=== PATIENT | female | born 1935 | race African-American/Black ===

== ENCOUNTER 2016-04-10 14:02 | Observation (INO) | payer OTHER ==
[~2016-04-10] VITALS: Ht 165.1 cm; Wt 76.7 kg
--- NOTE | 2016-04-10 14:09 | PHYS DOC ---
Adult General Chief Complaint Chief Complaint: CHEST PAIN HPI HPI Patient is a 80 year old frequent [place]ian female who presents with pain. She states last night she developed left-sided chest pain underneath her left breast is very intermittent. Nothing made it better or worse it just came and went. She denies any shortness of breath or nausea with this. She states it did keep her awake during the night. It did resolve this morning but she had an episode of what she felt like her heart racing and pounding in her head which lasted approximate 5 minutes. She took another one of blood pressure medicines and then came to the ER. Currently she denies any chest pain shortness of breath nausea vomiting or this pounding sensation in her head. She states she's had a stress test but is too many years ago that she can't remember the results of it. Review of Systems Review of Systems Constitutional: Denies fever or chills [] Eyes: Denies change in visual acuity, redness, or eye pain [] HENT: Denies nasal congestion or sore throat [] Respiratory: Denies cough or shortness of breath [] Cardiovascular: No additional information not addressed in HPI [] GI: Denies abdominal pain, nausea, vomiting, bloody stools or diarrhea [] : Denies dysuria or hematuria [] Musculoskeletal: Denies back pain or joint pain [] Integument: Denies rash or skin lesions [] Neurologic: Denies headache, focal weakness or sensory changes [] Endocrine: Denies polyuria or polydipsia [] Current Medications Current Medications Current Medications Medications (Trade) Dose Ordered Sig/[facility] Start Time Stop Time Status Last Admin Dose Admin Aspirin (Children'S Aspirin) 324 mg 1X ONCE 04/10/16 14:15 04/10/16 14:31 DC 04/10/16 14:34 324 MG Nitroglycerin (Nitrostat) 0.4 mg PRN Q5MIN PRN 04/10/16 14:15 04/11/16 14:14 04/10/16 14:35 0.4 MG Allergies Allergies Allergies Coded Allergies Type Severity Reaction Last Updated Verified No Known Drug Allergies 04/10/16 No Physical Exam Physical Exam Constitutional: Well developed, well nourished, no acute distress, non-toxic appearance. [] HENT: Normocephalic, atraumatic, bilateral external ears normal, oropharynx moist, no oral exudates, nose normal. [] Eyes: PERRLA, EOMI, conjunctiva normal, no discharge. [] Neck: Normal range of motion, no tenderness, supple, no stridor. [] Cardiovascular:Heart rate regular rhythm, no murmur [] Lungs & Thorax: Bilateral breath sounds clear to auscultation [] Abdomen: Bowel sounds normal, soft, no tenderness, no masses, no pulsatile masses. [] Skin: Warm, dry, no erythema, no rash. [] Back: No tenderness, no CVA tenderness. [] Extremities: No tenderness, no cyanosis, no clubbing, ROM intact, no edema. [] Neurologic: Alert and oriented X 3, normal motor function, normal sensory function, no focal deficits noted. [] Psychologic: Affect normal, judgement normal, mood normal. [] Current Patient Data Vital Signs Vital Signs Date Time Temp Pulse Resp B/P Pulse Ox O2 Delivery O2 Flow Rate FiO2 04/10/16 14:35 100 211/95 04/10/16 14:11 98.5 16 97 Room Air 98.5 Lab Values Laboratory Tests Test 04/10/16 14:20 White Blood Count 7.3x10^3/uL (4.0-11.0) Red Blood Count 4.71x10^6/uL (3.50-5.40) Hemoglobin 12.6g/dL (12.0-15.5) Hematocrit 39.0% (36.0-47.0) Mean Corpuscular Volume 83fL (79-100) Mean Corpuscular Hemoglobin 27pg (25-35) Mean Corpuscular Hemoglobin Concent 32g/dL (31-37) Red Cell Distribution Width 14.1% (11.5-14.5) Platelet Count 258x10^3/uL (140-400) Neutrophils (%) (Auto) 26% (31-73) L Lymphocytes (%) (Auto) 65% (24-48) H Monocytes (%) (Auto) 8% (0-9) Eosinophils (%) (Auto) 2% (0-3) Basophils (%) (Auto) 1% (0-3) Neutrophils # (Auto) 1.9x10^3uL (1.8-7.7) Lymphocytes # (Auto) 4.7x10^3/uL (1.0-4.8) Monocytes # (Auto) 0.6x10^3/uL (0.0-1.1) Eosinophils # (Auto) 0.1x10^3/uL (0.0-0.7) Basophils # (Auto) 0.1x10^3/uL (0.0-0.2) Platelet Estimate Pending Prothrombin Time 12.6SEC (11.7-14.0) Prothrombin Time INR 1.0 (0.8-1.1) Sodium Level 135mmol/L (136-145) L Potassium Level 3.7mmol/L (3.5-5.1) Chloride Level 96mmol/L (98-107) L Carbon Dioxide Level 28mmol/L (21-32) Anion Gap 11 (6-14) Blood Urea Nitrogen 16mg/dL (7-20) Creatinine 1.4mg/dL (0.6-1.0) H Estimated GFR (Cockcroft-Gault) 36.3 Glucose Level 167mg/dL (70-99) H Calcium Level 9.9mg/dL (8.5-10.1) Magnesium Level 2.1mg/dL (1.8-2.4) Total Bilirubin 0.4mg/dL (0.2-1.0) Direct Bilirubin 0.1mg/dL (0.0-0.2) Aspartate Amino Transferase (AST) 20U/L (15-37) Alanine Aminotransferase (ALT) 33U/L (14-59) Alkaline Phosphatase 93U/L (46-116) Creatine Kinase 211U/L (26-192) H Creatine Kinase MB (Mass) 1.3ng/mL (0.0-3.6) Creatine Kinase MB Relative Index 0.6% (0-4) Troponin I Quantitative < 0.017ng/mL (0.000-0.055) JT-Xza-N-Type Natriuretic Peptide 23pg/mL (0-449) Total Protein 8.6g/dL (6.4-8.2) H Albumin 4.1g/dL (3.4-5.0) Lipase 439U/L (73-393) H Thyroid Stimulating Hormone (TSH) 4.325uIU/mL (0.358-3.74) H Laboratory Tests 04/10/16 14:20 Laboratory Tests 04/10/16 14:20 EKG EKG EKG shows a supraventricular rhythm with a rate of 115 bpm, left axis deviation , left anterior fascicular block, right bundle branch block, right axis deviation, no ST elevations or T-wave inversions appreciated, as interpreted by me. Radiology/Procedures Radiology/Procedures [facility] [address] [place] [address] IMAGING REPORT Signed PATIENT: MARSHALL RODRIGUEZ ACCOUNT: [id number] : 1935 LOCATION: ER AGE: 80 SEX: F EXAM STATUS: PRE ER ORD. PHYSICIAN: FREEDOM TOUSSAINT MD REASON: chest pain PROCEDURE: PORTABLE CHEST 1V Portable chest, 04/10/2016: History: Elevated blood pressure Comparison is made to a study from 02/18/2010. The heart size and pulmonary vascularity are normal. No pulmonary infiltrates are seen. There is no evidence of pleural fluid. Mild spurring is present in the spine. IMPRESSION: No acute cardiopulmonary abnormality is detected. DICTATED and SIGNED BY: EB MENDIETA MD DATE: 04/10/16 1450 CC: FREEDOM TOUSSAINT MD ~ Impressions: Chest pain Course & Med Decision Making Course & Med Decision Making Pertinent Labs and Imaging studies reviewed. (See chart for details) EKG does show a supraventricular radiated 115 bpm. She since then after she bent the bed, down to a rate of 90. Her labs show any acute abdomen allergies. Will admit for official chest pain rule out. Hospitalist agreeable plan patient' s in stable condition this time. Dragon Disclaimer Dragon Disclaimer This electronic medical record was generated, in whole or in part, using a voice recognition dictation system. Departure Departure Impression: Primary Impression: Chest pain Disposition: ADMITTED INPATIENT Admitting Physician: Asuncion Corado Condition: STABLE FREEDOM TOUSSAINT MD Apr 10, 2016 14:09
[2016-04-10] MEDS ORDERED: ASPIRIN 81 MG TAB.CHEW PO ONE (14:15)
[2016-04-10] MEDS ORDERED: NITROGLYCERIN SUBLINGUAL 0.4 MG BOTTLE OF 25. SL PRN (14:15)
[2016-04-10 14:37] LABS: BASO # 0.1 x10^3/uL (0.0-0.2); BASO % 1 % (0-3); EOS % 2 % (0-3); HEMOGLOBIN 12.6 g/dL (12.0-15.5); LYMPH # 4.7 x10^3/uL (1.0-4.8); LYMPH % 65 % (24-48); MEAN CORPUSCULAR HEMOGLOBIN 27 pg (25-35); MEAN CORPUSCULAR HGB CONC 32 g/dL (31-37); MEAN CORPUSCULAR VOLUME 83 fL (79-100); MONO % 8 % (0-9); NEUT % 26 % (31-73); PLATELET COUNT 258 x10^3/uL (140-400); RED BLOOD COUNT 4.71 x10^6/uL (3.50-5.40); RED CELL DISTRIBUTION WIDTH 14.1 % (11.5-14.5); WHITE BLOOD COUNT 7.3 x10^3/uL (4.0-11.0)
[2016-04-10 14:41] LABS: CALCIUM 9.9 mg/dL (8.5-10.1); CREATININE 1.4 mg/dL (0.6-1.0); GFR 36.3; POTASSIUM 3.7 mmol/L (3.5-5.1)
[2016-04-10 14:48] LABS: ALBUMIN 4.1 g/dL (3.4-5.0); DIRECT BILIRUBIN 0.1 mg/dL (0.0-0.2); MAGNESIUM 2.1 mg/dL (1.8-2.4); TOTAL BILIRUBIN 0.4 mg/dL (0.2-1.0); TOTAL PROTEIN 8.6 g/dL (6.4-8.2)
[2016-04-10 14:50] LABS: PROTHROMBIN TIME PATIENT 12.6 SEC (11.7-14.0)
[2016-04-10] MEDS ORDERED: TRIA1TAB3 PO (14:52)
[2016-04-10] MEDS ORDERED: AMLO5TAB2 PO (14:52)
[2016-04-10] MEDS ORDERED: METO-269 PO (14:52)
--- NOTE | 2016-04-10 14:54 | RAD ---
Portable chest, 04/10/2016: History: Elevated blood pressure Comparison is made to a study from 02/18/2010. The heart size and pulmonary vascularity are normal. No pulmonary infiltrates are seen. There is no evidence of pleural fluid. Mild spurring is present in the spine. IMPRESSION: No acute cardiopulmonary abnormality is detected.
[2016-04-10 15:02] LABS: CKMB INDEX 0.6 % (0-4); CKMB MASS 1.3 ng/mL (0.0-3.6)
[2016-04-10 15:40] LABS: % BASOS 1 % (0-3); PLT ESTIMATE ADEQUATE (ADEQUATE)
[2016-04-10] MEDS ORDERED: ACETAMINOPHEN 325 MG TABLET. PO PRN (16:15)
[2016-04-10] MEDS ORDERED: ONDANSETRON PF 4 MG/2 ML VIAL. IV PRN (16:15)
[2016-04-10] MEDS ORDERED: TRAMADOL 50 MG TABLET. PO PRN (16:15)
[2016-04-10] MEDS ORDERED: LABETALOL 20 MG/4 ML DISP.SYRIN. IVP PRN ×2 (16:15→16:30)
--- NOTE | 2016-04-10 16:19 | PDOC2 ---
CARDIAC CONSULT DATE OF CONSULT Date of Consult DATE: 04/10/16 TIME: 16:01 REASON FOR CONSULT Reason for Consult: Chest pain REFERRING PHYSICIAN Referring Physician: Alyse SOURCE Source: Chart review, Patient HISTORY OF PRESENT ILLNESS HISTORY OF PRESENT ILLNESS This is a pleasant 80 yo female admitted for complains of chest pain and high blood pressure. Reports of left chest achiness starting last night which waxing and waning but tolerable continued on throughout the night intensifying at time lasting about 2 minutes each episode. This continued today and after 1 PM she felt that her head was pulsating and reports of heaviness in her left arm. She then took her BP which normally dont do and it was 228/98. Denies any SOA and in her activities prior to this episode she denies any GARCIA. Her baseline is mainly sedentary, does not exercise. She does watches her Na. Denies any nausea, vomiting, dizziness, or palpitations. At home she takes a statin, ASA, norvasc, maxide, toprol. Denies any DM2, tobaccoism. No prior VTE but she does have chronic leg edema with RLE usually more edematous that left. Denies any recent long distance travel. Denies any bleeding or clotting disorders. Denies any CAD, arrhythmias, CVA. No recent falls or injury and no recent infections. Her last stress test was >10 yrs ago and she does not follow any research & insights executive. She does follow with her PCP and compliant with her medications except that she stopped taking her statin over a week ago since she ran out. 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) Hepatobiliary: No pertinent hx Psych: No pertinent hx Musculoskeletal: Osteoarthritis Rheumatologic: No pertinent hx Infectious disease: No pertinent hx ENT: No pertinent hx Renal/: No pertinent hx Endocrine: No pertinent hx Dermatology: No pertinent hx PAST SURGICAL HISTORY Past Surgical History: Other (neck lymphoma removal) FAMILY HISTORY Family History noncontributory to CV SOCIAL HISTORY Smoke: No ALCOHOL: occassional Drugs: None Lives: with Family CURRENT MEDICATIONS CURRENT MEDICATIONS Current Medications Medications (Trade) Dose Ordered Sig/Comfort Route PRN Reason Start Time Stop Time Status Last Admin Dose Admin Aspirin (Children'S Aspirin) 324 mg 1X ONCE PO 04/10/16 14:15 04/10/16 14:31 DC 04/10/16 14:34 Nitroglycerin (Nitrostat) 0.4 mg PRN Q5MIN PRN SL CP RATING > 1/10 04/10/16 14:15 04/11/16 14:14 04/10/16 14:35 ALLERGIES ALLERGIES: Coded Allergies: No Known Drug Allergies (Unverified , 04/10/16) ROS Review of System 14 point ROS evaluated with pertinent positives noted per HPI PHYSICAL EXAM General: Alert, Oriented X3, Cooperative, No acute distress HEENT: Atraumatic, Mucous membr. moist/pink Lungs: Clear to auscultation, Normal air movement Heart: Regular rate, Normal S1, Normal S2, Other (2/6 systolic murmur to LLS border; S4) Extremities: No cyanosis, Other (1+ to LLE and 2+ to RLE pitting edema) Skin: No breakdown, No significant lesion Neuro: Normal speech, Sensation intact Psych/Mental Status: Mental status NL, Mood NL MUSCULOSKELETAL: Osteoarthritic changes both hands VITALS VITALS Vital Signs Date Time Temp Pulse Resp B/P Pulse Ox O2 Delivery O2 Flow Rate FiO2 04/10/16 14:35 100 211/95 04/10/16 14:11 98.5 16 97 Room Air 98.5 LABS Lab: Laboratory Tests Test 04/10/16 14:20 White Blood Count 7.3x10^3/uL (4.0-11.0) Red Blood Count 4.71x10^6/uL (3.50-5.40) Hemoglobin 12.6g/dL (12.0-15.5) Hematocrit 39.0% (36.0-47.0) Mean Corpuscular Volume 83fL (79-100) Mean Corpuscular Hemoglobin 27pg (25-35) Mean Corpuscular Hemoglobin Concent 32g/dL (31-37) Red Cell Distribution Width 14.1% (11.5-14.5) Platelet Count 258x10^3/uL (140-400) Neutrophils (%) (Auto) 26% (31-73) Lymphocytes (%) (Auto) 65% (24-48) Monocytes (%) (Auto) 8% (0-9) Eosinophils (%) (Auto) 2% (0-3) Basophils (%) (Auto) 1% (0-3) Neutrophils # (Auto) 1.9x10^3uL (1.8-7.7) Lymphocytes # (Auto) 4.7x10^3/uL (1.0-4.8) Monocytes # (Auto) 0.6x10^3/uL (0.0-1.1) Eosinophils # (Auto) 0.1x10^3/uL (0.0-0.7) Basophils # (Auto) 0.1x10^3/uL (0.0-0.2) Segmented Neutrophils % 21% (35-66) Lymphocytes % 59% (24-48) Atypical Lymphocytes % (Manual) 13% (0-0) Monocytes % 6% (0-10) Basophils % 1% (0-3) Platelet Estimate Adequate (ADEQUATE) Prothrombin Time 12.6SEC (11.7-14.0) Prothromb Time International Ratio 1.0 (0.8-1.1) Sodium Level 135mmol/L (136-145) Potassium Level 3.7mmol/L (3.5-5.1) Chloride Level 96mmol/L (98-107) Carbon Dioxide Level 28mmol/L (21-32) Anion Gap 11 (6-14) Blood Urea Nitrogen 16mg/dL (7-20) Creatinine 1.4mg/dL (0.6-1.0) Estimated GFR (Cockcroft-Gault) 36.3 Glucose Level 167mg/dL (70-99) Calcium Level 9.9mg/dL (8.5-10.1) Magnesium Level 2.1mg/dL (1.8-2.4) Total Bilirubin 0.4mg/dL (0.2-1.0) Direct Bilirubin 0.1mg/dL (0.0-0.2) Aspartate Amino Transf (AST/SGOT) 20U/L (15-37) Alanine Aminotransferase (ALT/SGPT) 33U/L (14-59) Alkaline Phosphatase 93U/L (46-116) Creatine Kinase 211U/L (26-192) Creatine Kinase MB (Mass) 1.3ng/mL (0.0-3.6) Creatine Kinase MB Relative Index 0.6% (0-4) Troponin I Quantitative < 0.017ng/mL (0.000-0.055) EU-Sjs-J-Type Natriuretic Peptide 23pg/mL (0-449) Total Protein 8.6g/dL (6.4-8.2) Albumin 4.1g/dL (3.4-5.0) Lipase 439U/L (73-393) Thyroid Stimulating Hormone (TSH) 4.325uIU/mL (0.358-3.74) ASSESSMENT/PLAN ASSESSMENT/PLAN 1. Chest pain: Initial trop normal. 2. Abnormal EKG: Sinus tach, RBBB/LAFB with inferolateral ST depression/ biphasic T wave with initial neg deflection morphology suspicious of ischemia, none to compare. 3. Accelerated HTN 4. HLP 5. Suspected baseline CKD3 6. Subclinical hypothyroidism 7. Hx of lymphoma: 27 yrs ago treated with surgery and chemo 8. Hyperglycemia Recommendations 1. Hold maxide, start on coreg instead of toprol, start on losartan, labetolol IV prn. 2. ECASA, continue with statin 3. TTE now, lipid panel, Mg, continue to trend troponin, A1C. Repeat EKG in AM. 4. Lovenox x1. 5. If no significant changes on TTE or troponin then will plan for MPI tomorrow. Problems: ALISTAIR VASQUEZ APRN Apr 10, 2016 16:19
--- NOTE | 2016-04-10 16:24 | PDOC1 ---
History and Physical Date of Admission Date of Admission 04/10/16 Identification/Chief Complaint Chief Complaint chest pain, htn Problems: Source Source: Chart review, Patient History of Present Illness History of Present Illness Patient is a 80 year old frequent [place] female who presents with chest pain , and high BP to ER. Pt started to feel left chest pain last night while she was lying in bed, sharp , 1/10, no radiation, no diaphoresis, no N/V, or sob. The pain was intermittent , currently free. She states it did keep her awake during the night. Today, she was standing in kitchen, cutting onion, felt headache, checked BP 224 /98, then came to ER. with palpitation. Past Medical History Cardiovascular: HTN Past Surgical History Past Surgical History: No pertinent history Family History Family History: No Significant Social History Smoke: No ALCOHOL: none Drugs: None Current Problem List Problem List Problems Medical Problems: (1) Chest pain Status: Acute Current Medications Current Medications Current Medications Medications (Trade) Dose Ordered Sig/Comfort Start Time Stop Time Status Last Admin Dose Admin Aspirin (Children'S Aspirin) 324 mg 1X ONCE 04/10/16 14:15 04/10/16 14:31 DC 04/10/16 14:34 324 MG Nitroglycerin (Nitrostat) 0.4 mg PRN Q5MIN PRN 04/10/16 14:15 04/11/16 14:14 04/10/16 14:35 0.4 MG Allergies Allergies Allergies Coded Allergies Type Severity Reaction Last Updated Verified No Known Drug Allergies 04/10/16 No ROS Review of System CONSTITUTIONAL: No fever or chills EYES: No recent changes SKIN: No rash or itching CARDIOVASCULAR: No chest pain, syncope, palpitations, or edema RESPIRATORY: No SOB or cough GASTROINTESTINAL: No nausea, vomiting or abdominal pain NEUROLOGICAL: No headaches or weakness ENDOCRINE: No cold or heat intolerance GENITOURINARY: No urgency or frequency of urination MUSCULOSKELETAL: No back pain or joint pain LYMPHATICS: No enlarged lymph nodes PSYCHIATRIC: No anxiety or depression Physical Exam Physical Exam GEN.: No apparent distress. Alert and oriented. HEENT: Head is normocephalic, atraumatic NECK: Supple. LUNGS: Clear to auscultation. HEART: RRR, S1, S2 present. Peripheral pulses intact ABDOMEN: Soft, nontender. Positive bowel sounds. EXTREMITIES: Without any cyanosis. right leg edema 2+. NEUROLOGIC: Normal speech, normal tone PSYCHIATRIC: Normal affect, normal mood. SKIN: No ulcerations Vitals Vitals Vital Signs Date Time Temp Pulse Resp B/P Pulse Ox O2 Delivery O2 Flow Rate FiO2 04/10/16 14:35 100 211/95 04/10/16 14:11 98.5 16 97 Room Air 98.5 Labs Labs Laboratory Tests Test 04/10/16 14:20 White Blood Count 7.3x10^3/uL (4.0-11.0) Red Blood Count 4.71x10^6/uL (3.50-5.40) Hemoglobin 12.6g/dL (12.0-15.5) Hematocrit 39.0% (36.0-47.0) Mean Corpuscular Volume 83fL (79-100) Mean Corpuscular Hemoglobin 27pg (25-35) Mean Corpuscular Hemoglobin Concent 32g/dL (31-37) Red Cell Distribution Width 14.1% (11.5-14.5) Platelet Count 258x10^3/uL (140-400) Neutrophils (%) (Auto) 26% (31-73) Lymphocytes (%) (Auto) 65% (24-48) Monocytes (%) (Auto) 8% (0-9) Eosinophils (%) (Auto) 2% (0-3) Basophils (%) (Auto) 1% (0-3) Neutrophils # (Auto) 1.9x10^3uL (1.8-7.7) Lymphocytes # (Auto) 4.7x10^3/uL (1.0-4.8) Monocytes # (Auto) 0.6x10^3/uL (0.0-1.1) Eosinophils # (Auto) 0.1x10^3/uL (0.0-0.7) Basophils # (Auto) 0.1x10^3/uL (0.0-0.2) Segmented Neutrophils % 21% (35-66) Lymphocytes % 59% (24-48) Atypical Lymphocytes % (Manual) 13% (0-0) Monocytes % 6% (0-10) Basophils % 1% (0-3) Platelet Estimate Adequate (ADEQUATE) Prothrombin Time 12.6SEC (11.7-14.0) Prothromb Time International Ratio 1.0 (0.8-1.1) Sodium Level 135mmol/L (136-145) Potassium Level 3.7mmol/L (3.5-5.1) Chloride Level 96mmol/L (98-107) Carbon Dioxide Level 28mmol/L (21-32) Anion Gap 11 (6-14) Blood Urea Nitrogen 16mg/dL (7-20) Creatinine 1.4mg/dL (0.6-1.0) Estimated GFR (Cockcroft-Gault) 36.3 Glucose Level 167mg/dL (70-99) Calcium Level 9.9mg/dL (8.5-10.1) Magnesium Level 2.1mg/dL (1.8-2.4) Total Bilirubin 0.4mg/dL (0.2-1.0) Direct Bilirubin 0.1mg/dL (0.0-0.2) Aspartate Amino Transf (AST/SGOT) 20U/L (15-37) Alanine Aminotransferase (ALT/SGPT) 33U/L (14-59) Alkaline Phosphatase 93U/L (46-116) Creatine Kinase 211U/L (26-192) Creatine Kinase MB (Mass) 1.3ng/mL (0.0-3.6) Creatine Kinase MB Relative Index 0.6% (0-4) Troponin I Quantitative < 0.017ng/mL (0.000-0.055) AU-Vxg-C-Type Natriuretic Peptide 23pg/mL (0-449) Total Protein 8.6g/dL (6.4-8.2) Albumin 4.1g/dL (3.4-5.0) Lipase 439U/L (73-393) Thyroid Stimulating Hormone (TSH) 4.325uIU/mL (0.358-3.74) Laboratory Tests Test 04/10/16 14:20 White Blood Count 7.3x10^3/uL (4.0-11.0) Red Blood Count 4.71x10^6/uL (3.50-5.40) Hemoglobin 12.6g/dL (12.0-15.5) Hematocrit 39.0% (36.0-47.0) Mean Corpuscular Volume 83fL (79-100) Mean Corpuscular Hemoglobin 27pg (25-35) Mean Corpuscular Hemoglobin Concent 32g/dL (31-37) Red Cell Distribution Width 14.1% (11.5-14.5) Platelet Count 258x10^3/uL (140-400) Neutrophils (%) (Auto) 26% (31-73) Lymphocytes (%) (Auto) 65% (24-48) Monocytes (%) (Auto) 8% (0-9) Eosinophils (%) (Auto) 2% (0-3) Basophils (%) (Auto) 1% (0-3) Neutrophils # (Auto) 1.9x10^3uL (1.8-7.7) Lymphocytes # (Auto) 4.7x10^3/uL (1.0-4.8) Monocytes # (Auto) 0.6x10^3/uL (0.0-1.1) Eosinophils # (Auto) 0.1x10^3/uL (0.0-0.7) Basophils # (Auto) 0.1x10^3/uL (0.0-0.2) Segmented Neutrophils % 21% (35-66) Lymphocytes % 59% (24-48) Atypical Lymphocytes % (Manual) 13% (0-0) Monocytes % 6% (0-10) Basophils % 1% (0-3) Platelet Estimate Adequate (ADEQUATE) Prothrombin Time 12.6SEC (11.7-14.0) Prothromb Time International Ratio 1.0 (0.8-1.1) Sodium Level 135mmol/L (136-145) Potassium Level 3.7mmol/L (3.5-5.1) Chloride Level 96mmol/L (98-107) Carbon Dioxide Level 28mmol/L (21-32) Anion Gap 11 (6-14) Blood Urea Nitrogen 16mg/dL (7-20) Creatinine 1.4mg/dL (0.6-1.0) Estimated GFR (Cockcroft-Gault) 36.3 Glucose Level 167mg/dL (70-99) Calcium Level 9.9mg/dL (8.5-10.1) Magnesium Level 2.1mg/dL (1.8-2.4) Total Bilirubin 0.4mg/dL (0.2-1.0) Direct Bilirubin 0.1mg/dL (0.0-0.2) Aspartate Amino Transf (AST/SGOT) 20U/L (15-37) Alanine Aminotransferase (ALT/SGPT) 33U/L (14-59) Alkaline Phosphatase 93U/L (46-116) Creatine Kinase 211U/L (26-192) Creatine Kinase MB (Mass) 1.3ng/mL (0.0-3.6) Creatine Kinase MB Relative Index 0.6% (0-4) Troponin I Quantitative < 0.017ng/mL (0.000-0.055) PI-Vxt-U-Type Natriuretic Peptide 23pg/mL (0-449) Total Protein 8.6g/dL (6.4-8.2) Albumin 4.1g/dL (3.4-5.0) Lipase 439U/L (73-393) Thyroid Stimulating Hormone (TSH) 4.325uIU/mL (0.358-3.74) VTE Prophylaxis Ordered VTE Prophylaxis Devices: Yes VTE Pharmacological Prophylaxi: Yes Assessment/Plan Assessment/Plan 1. chest pain, need to rule out unstable angina, possible 2/2 htn 2. HTN urgency 3. obesity 4. HLD 5. CKD 3 6. high lymphcytes in blood plan: 1. card, onco consult 2. cont home meds, labetolol prn 3. cycle CE, check tsh, lipid panel echo 4. labs tmr duplex to rule out dvt dvt ppx SHERIDAN REYES MD Apr 10, 2016 16:24
[2016-04-10] MEDS ORDERED: ENOXAPARIN ** NOTE DOSE ** SYRINGE SQ ONE (16:30)
[2016-04-10 16:32] LABS: BILIRUBIN,URINE NEGATIVE (NEG); GLUCOSE,URINE NEGATIVE (NEG); NITRITE,URINE NEGATIVE (NEG); PH,URINE 6.5; PROTEIN,URINE NEGATIVE (NEG-TRACE); UROBILINOGEN,URINE 0.2 mg/dL (0.2 mg/dL)
[2016-04-10 16:58] LABS: BACTERIA,URINE FEW /HPF (0-FEW); RBC,URINE RARE /HPF (0-2); SQUAMOUS EPITHELIAL CELL,UR FEW /LPF; WBC,URINE 0 /HPF (0-4)
--- NOTE | 2016-04-10 17:13 | CARD ---
APPROVED REPORT EXAM: Two-dimensional and M-mode echocardiogram with Doppler and color Doppler. Other Information Quality : Good INDICATION Abnormal ECG Hypertension/HCVD Chest Pain 2D DIMENSIONS RVDd3.7 (2.9-3.5cm)Left Atrium(2D)3.7 (1.6-4.0cm) IVSd1.2 (0.7-1.1cm)Aortic Root(2D)2.7 (2.0-3.7cm) LVDd3.8 (3.9-5.9cm)LVOT Diameter2.1 (1.8-2.4cm) PWd1.3 (0.7-1.1cm)LVDs2.4 (2.5-4.0cm) FS (%) 30.0 %SV42.0 ml LVEF(%)60.0 (>50%) Aortic Valve AoV Peak Jeffy.155.9cm/sAoV VTI25.8cm AO Peak GR.9.7mmHgLVOT VTI 22.67cm AO Mean GR.6mmHgAVA (VTI)3.10cm2 Mitral Valve MV E Utfovuae90.9cm/sMV DECEL [id number] MV A Vjlhskle89.0cm/sE/A Ratio0.6 TDI Lateral E' P. V7.02cm/sMedial E' P. V6.89cm/s E/Lateral E'6.4E/Medial E'6.5 Pulmonary Vein S1 Kbhyaegd97.5cm/sS2 Vtqpwqvy27.13cm/s D2 Vnsaveox89.1cm/sPVa [id number] LEFT VENTRICLE The left ventricle is normal size. There is mild concentric left ventricular hypertrophy. The left ve ntricular systolic function is normal and the ejection fraction is within normal range. The Ejection Fraction is 60-65%. There is normal LV segmental wall motion. Transmitral Doppler flow pattern is Gra de I-abnormal relaxation pattern. RIGHT VENTRICLE The right ventricle is normal size. The right ventricular systolic function is normal. ATRIA The left atrium size is normal. The right atrium size is normal. The interatrial septum is intact wit h no evidence for an atrial septal defect or patent foramen ovale as noted on 2-D or Doppler imaging. AORTIC VALVE The aortic valve is calcified but opens well. Doppler and Color Flow revealed no significant aortic r egurgitation. There is no significant aortic valvular stenosis. MITRAL VALVE The mitral valve is normal in structure and function. There is no evidence of mitral valve prolapse. There is no mitral valve stenosis. Doppler and Color Flow revealed no mitral valve regurgitation note d. TRICUSPID VALVE The tricuspid valve is normal in structure and function. Doppler and Color Flow revealed trace tricus pid regurgitation. There is no tricuspid valve stenosis. PULMONIC VALVE Doppler and Color Flow revealed no pulmonic valvular regurgitation. There is no pulmonic valvular celi nosis. GREAT VESSELS The aortic root is normal in size. The ascending aorta is normal in size. The IVC is normal in size a nd collapses >50% with inspiration. PERICARDIAL EFFUSION There is no evidence of significant pericardial effusion. Critical Notification Critical Value: No <Conclusion> The left ventricular systolic function is normal and the ejection fraction is within normal range. Th e Ejection Fraction is 60-65%. There is normal LV segmental wall motion. There is mild concentric left ventricular hypertrophy.
--- NOTE | 2016-04-10 17:15 | ACF ---
Admission Forms Criteria CHEST PAIN Clinical Indications for Admission to Inpatient Care (Place 'X' for any and all applicable criteria): Admission is indicated for chest pain and ANY ONE of the following(1)(2)(3)(4)(5 ): [ ]I. Angina with acute coronary syndrome (Also use Myocardial Infarction or Angina guideline) [ ]II. Hemodynamic instability [ ]III. Angina needing acute intervention as indicated by ALL of the following( 11)(12): [ ]a) Unstable angina is present as indicated by angina that is ANY ONE of the following: [ ]i) New onset [ ]ii) Nocturnal [ ]iii) Prolonged at rest [ ]iv) Progressive [ ]b) Angina warrants acute intervention as indicated by ANY ONE of the following: [ ]i) Recurrent angina (e.g, not responding as previously to treatment) [ ]ii) Angina at rest or with low-level activities despite initial medical therapy [ ]iii) New or presumably new ST-segment depression on ECG [ ]iv) Signs or symptoms of heart failure (eg, dyspnea, pulmonary edema) [ ]v) New or worsening mitral regurgitation [ ]vi) Hemodynamic instability [ ]vii) Dangerous arrhythmia (eg, sustained ventricular tachycardia) [ ]viii) History of percutaneous coronary intervention within 6 months [ ]ix) History of coronary artery bypass graft surgery [ ]x) BRENDA risk score of 2 or greater[A] [ ]xi) History of Diabetes(14) [ ]xii) High-risk cardiac ischemia findings on noninvasive testing (e.g, echocardiogram, treadmill testing, nuclear scan) [ ]xiii) Chronic renal insufficiency (ie, estimated GFR less than 60 mL/min/1.732m) [ ]xiv) Left ventricular ejection fraction less than 40% [ ]IV. Evidence of [place] (eg, cardiac biomarkers positive, ST-segment elevation on ECG) also use Myocardial Infarction Criteria Form. [ ]V. Pulmonary edema [ ]. Respiratory distress [ ]VII. Chest pain indicative of serious diagnosis other than coronary artery disease (eg, aortic dissection) [ ]VIII. Contraindications and/or Inappropriate clinical situations for Observational Care in patients with Chest Pain, when ANY ONE of the following is required: [ ]a) Patient with risk factor for pulmonary embolism, acute coronary syndrome and myocardial infarction (18) [ ]b) Patient with Pulmonary embolism require an average LOS of 4.3 days, therefore emergency department observation management is inappropriate 18,23 [ ]c) Painful condition/s in the elderly, have the highest rate of recidivism after emergency department observation management (10.8%) 20,21,22 [ ]d) Elevated cardiac biomarker requires intensive and exhaustive care (19) [X]IX. General contraindications and/or Inappropriate clinical situations for Observational Care in patients with Chest Pain, when ANY ONE of the following is required: [ ]a) Prediction of prolongation of LOS based on ANY ONE of the following may be considered as a contraindication for observational care 2, 3, 4, 5, 6, 7, 8, 9, 10, 11 [ ]i) Age > 65 yrs. [ ]ii) Patient arriving by ambulance [ ]iii) Patient with high acuity [ ]iv) Patient requiring vital sign monitoring [ ]v) Patient on IV medication [X]b) Systolic blood pressures 180mmHg 3,12 [ ]c) Patient with altered mental status including delirium and other alteration of consciousness, (3) [ ]d) Patient whose discharge disposition will be to a prison home or rehabilitation home should not be managed in Emergency Department Observation Unit. CMS rule requires 3 days hospital stay before such placement. 3,13 [ ]e) Patient with failure to thrive due to broad array of etiologies 3,16,17 [ ]f) Inability to ambulate 3,14 Extended stay beyond goal length of stay may be needed for (1)(28): [ ]a) Specific condition diagnosed after evaluation (eg, pulmonary embolism, aortic dissection) [ ]b) Unstable angina [ ]c) Continued suspicion of acute coronary syndrome with inability to complete needed cardiac evaluation (eg, patient clinically unable to undergo stress testing) [ ]d) Myocardial infarction (Contents from ANGINA and CHEST PAIN clinical indications for admission to inpatient care have been integrated in this form) The original [facility] content created by [employer] has been revised. The portions of the content which have been revised are identified through the use of italic text or in bold, and [facility] [employer] has neither reviewed nor approved the modified material. All other unmodified content is copyright [facility]. Please see references footnoted in the original [facility] edition 2016 Admission Criteria Met?: Yes HAYLEE REHMAN Apr 10, 2016 17:15
[2016-04-10 18:17] VITALS: BP 136/77
--- NOTE | 2016-04-10 18:27 | RAD ---
PROCEDURE Bilateral lower extremity venous Doppler. HISTORY Lower extremity swelling. FINDINGS The veins of both lower extremities were interrogated under grayscale, color Doppler, and spectral Doppler modes. The veins are compressible and demonstrate normal Doppler flow dynamics. There is no evidence of deep venous thrombosis. IMPRESSION No evidence of lower extremity deep venous thrombosis. Electronically signed by: Manoj Michele MD (Apr 10, 2016 18:25:30)
--- NOTE | 2016-04-10 18:33 | PDOC ---
Provider Note Provider Note Hem/Onc consult 1. Lymphocytosis - plan flow cytometry for CLL eval. See dictation [id number] SHERYL BE MD Apr 10, 2016 18:33
[2016-04-10 19:00] VITALS: BP 158/80
[2016-04-10] MEDS: ATORVASTATIN CALCIUM 20 MG TABLET PO SCH (20:46)
[2016-04-10] MEDS: CARVEDILOL 12.5 MG TABLET PO SCH (20:47)
[2016-04-10 23:22] VITALS: BP 117/58
[2016-04-11 04:02] LABS: BASO % 1 % (0-3); EOS % 2 % (0-3); HEMATOCRIT 36.8 % (36.0-47.0); HEMOGLOBIN 11.8 g/dL (12.0-15.5); LYMPH # 2.9 x10^3/uL (1.0-4.8); LYMPH % 49 % (24-48); MEAN CORPUSCULAR HEMOGLOBIN 27 pg (25-35); MEAN CORPUSCULAR HGB CONC 32 g/dL (31-37); MEAN CORPUSCULAR VOLUME 82 fL (79-100); MONO % 10 % (0-9); NEUT % 39 % (31-73); PLATELET COUNT 252 x10^3/uL (140-400); RED BLOOD COUNT 4.46 x10^6/uL (3.50-5.40); RED CELL DISTRIBUTION WIDTH 14.2 % (11.5-14.5); WHITE BLOOD COUNT 5.9 x10^3/uL (4.0-11.0)
[2016-04-11 04:52] LABS: CALCIUM 9.5 mg/dL (8.5-10.1); CREATININE 1.2 mg/dL (0.6-1.0); GFR 52.4
[2016-04-11 04:58] LABS: CHOLESTEROL/HDL RATIO 4.6
[2016-04-11 07:00] VITALS: BP 136/71
--- NOTE | 2016-04-11 07:16 | CONS ---
DATE OF CONSULTATION: 04/10/2016 REQUESTING PHYSICIAN: Dr. Misty Corado. REASON FOR CONSULTATION: Lymphocytosis. HISTORY OF PRESENT ILLNESS: The patient is a 80-year-old -Malag[place] female who presented to [facility] on 04/10/2016 with complaints of chest pain and high blood pressure that was noted in the Emergency Room. The chest pain started on 04/09/2016 when she was lying in bed and it was on the left side, sharp, without any radiation. Her blood pressure was 224/98 and hence she came into the Emergency Room for further evaluation. She denies nausea, vomiting. No dizziness or palpitations. She denies nosebleeds or gum bleeding. No hematemesis, melena, hematochezia, no hemoptysis or hematuria. No loss of weight or loss of appetite. No fevers, chills or night sweats. She had a routine CBC on 04/10/2016 that revealed a WBC of 7.3, hemoglobin 12.6, platelet count 258 and her lymphocytes has significantly elevated at 65% with an absolute lymphocytic count of 4.7. There was also evidence of atypical lymphocytes at 13% noted in the peripheral smear and hence I was consulted for further evaluation. The patient denies any prior history of hematologic disorders, no history of lymphocytosis or leukocytosis that she is aware of. 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 FAMILY HISTORY: No history of primary hematologic problems in the family. SOCIAL HISTORY: No smoking or alcohol abuse. REVIEW OF SYSTEMS: A 12-point review of system was performed. Pertinent positives are mentioned in the history of present illness. Rest of the system review is negative. PHYSICAL EXAMINATION: GENERAL APPEARANCE: The patient is a 80-year-old -Malagasy female who is in no acute cardiorespiratory distress. VITAL SIGNS: Blood pressure 136/77, temperature 97.7. HEENT: Head atraumatic, normocephalic. Eyes: No icterus. NECK: Supple. CHEST: Bilaterally symmetrical. HEART: S1, S2 normal. ABDOMEN: Soft, nontender. No hepatosplenomegaly. CENTRAL NERVOUS SYSTEM: No focal deficits. LYMPHATICS: No lymphadenopathy. SKIN: No rashes. PSYCHOLOGIC: Mood and affect are appropriate. MUSCULOSKELETAL: No joint effusions. LABORATORY DATA: From 04/10/2016, WBC 7.3, hemoglobin 12.6, platelet count 258. Neutrophils 26%, lymphocytes 65%, absolute lymphocyte count is 4.7. Peripheral smear reveals evidence of 13% atypical lymphocytes. Creatinine is 1.3. TSH 4.325. RADIOLOGICAL STUDIES: Chest x-ray on 04/10/2016 is unremarkable. IMPRESSION AND PLAN: 1. Lymphocytosis with evidence of atypical lymphocytes noted on 04/10/2016, total WBC count is normal at 7.3; however, her lymphocytes are elevated at 65% with an absolute lymphocyte count of 4.7. The presence of 13% atypical lymphocytes raises the concern for possible chronic lymphocytic leukemia. Hence, I will proceed with further workup with peripheral blood flow cytometry for CLL. There is no clinical evidence of lymphadenopathy or hepatosplenomegaly. Since the hemoglobin and platelets are normal, she would not need chemotherapy even if she is diagnosed with CLL and observation would be the primary modality of management. I have explained in detail to the patient and she understands and agrees with the plan. 2. Chest pain, appreciate Cardiology consultation and management. SHERYL BE MD DR: JAROCHO/bro JOB#: [id number] / [id number] ABELARDO
[2016-04-11] MEDS: CARVEDILOL 12.5 MG TABLET PO SCH ×2 (09:21→17:07)
[2016-04-11] MEDS: ASPIRIN ENTERIC COATED 81 MG TABLET.DR. PO SCH (09:21)
[2016-04-11] MEDS: AMLODIPINE BESYLATE 5 MG TABLET PO SCH (09:22)
[2016-04-11] MEDS: LOSARTAN POTASSIUM 50 MG TABLET. PO SCH (09:22)
[2016-04-11] MEDS: TRIAMTERENE/HCTZ 37.5/25MG TABLET. PO SCH (09:23)
[2016-04-11] MEDS: METOPROLOL SUCC 24HR ER 50 MG TAB.ER.24H. PO SCH (09:23)
[2016-04-11 11:13] VITALS: BP 132/66
--- NOTE | 2016-04-11 12:17 | PDOC ---
PROGRESS NOTES Chief Complaint Chief Complaint 1. chest pain, need to rule out unstable angina, possible 2/2 htn 2. HTN urgency 3. obesity 4. HLD 5. CKD 3 6. high lymphcytes in blood History of Present Illness History of Present Illness In the shower Son and in room Updated on results of tests For MPI today For flow cytometry r/o CLL by heme onc FAmily says low platelets is new and the lymphocytes predominantly in blood PLAN: Await MPI and flow cytometry Vitals Vitals Vital Signs Date Time Temp Pulse Resp B/P Pulse Ox O2 Delivery O2 Flow Rate FiO2 04/11/16 11:13 98.3 64 17 132/66 95 Room Air 98.3 Physical Exam General: Alert, Oriented X3, Cooperative, No acute distress Heart: Regular rate, Normal S1, Normal S2, Other (2/6 systolic murmur to LLS border; S4) Extremities: No cyanosis, Other (1+ to LLE and 2+ to RLE pitting edema) Skin: No breakdown, No significant lesion Labs LABS Laboratory Tests Test 04/10/16 14:20 04/10/16 16:04 04/10/16 22:00 04/11/16 03:15 White Blood Count 7.3x10^3/uL (4.0-11.0) 5.9x10^3/uL (4.0-11.0) Red Blood Count 4.71x10^6/uL (3.50-5.40) 4.46x10^6/uL (3.50-5.40) Hemoglobin 12.6g/dL (12.0-15.5) 11.8g/dL (12.0-15.5) Hematocrit 39.0% (36.0-47.0) 36.8% (36.0-47.0) Mean Corpuscular Volume 83fL (79-100) 82fL (79-100) Mean Corpuscular Hemoglobin 27pg (25-35) 27pg (25-35) Mean Corpuscular Hemoglobin Concent 32g/dL (31-37) 32g/dL (31-37) Red Cell Distribution Width 14.1% (11.5-14.5) 14.2% (11.5-14.5) Platelet Count 258x10^3/uL (140-400) 252x10^3/uL (140-400) Neutrophils (%) (Auto) 26% (31-73) 39% (31-73) Lymphocytes (%) (Auto) 65% (24-48) 49% (24-48) Monocytes (%) (Auto) 8% (0-9) 10% (0-9) Eosinophils (%) (Auto) 2% (0-3) 2% (0-3) Basophils (%) (Auto) 1% (0-3) 1% (0-3) Neutrophils # (Auto) 1.9x10^3uL (1.8-7.7) 2.3x10^3uL (1.8-7.7) Lymphocytes # (Auto) 4.7x10^3/uL (1.0-4.8) 2.9x10^3/uL (1.0-4.8) Monocytes # (Auto) 0.6x10^3/uL (0.0-1.1) 0.6x10^3/uL (0.0-1.1) Eosinophils # (Auto) 0.1x10^3/uL (0.0-0.7) 0.1x10^3/uL (0.0-0.7) Basophils # (Auto) 0.1x10^3/uL (0.0-0.2) 0.0x10^3/uL (0.0-0.2) Segmented Neutrophils % 21% (35-66) Lymphocytes % 59% (24-48) Atypical Lymphocytes % (Manual) 13% (0-0) Monocytes % 6% (0-10) Basophils % 1% (0-3) Platelet Estimate Adequate (ADEQUATE) Prothrombin Time 12.6SEC (11.7-14.0) Prothromb Time International Ratio 1.0 (0.8-1.1) Sodium Level 135mmol/L (136-145) 137mmol/L (136-145) Potassium Level 3.7mmol/L (3.5-5.1) 4.0mmol/L (3.5-5.1) Chloride Level 96mmol/L (98-107) 99mmol/L (98-107) Carbon Dioxide Level 28mmol/L (21-32) 30mmol/L (21-32) Anion Gap 11 (6-14) 8 (6-14) Blood Urea Nitrogen 16mg/dL (7-20) 15mg/dL (7-20) Creatinine 1.4mg/dL (0.6-1.0) 1.2mg/dL (0.6-1.0) Estimated GFR (Cockcroft-Gault) 36.3 52.4 Glucose Level 167mg/dL (70-99) 106mg/dL (70-99) Calcium Level 9.9mg/dL (8.5-10.1) 9.5mg/dL (8.5-10.1) Magnesium Level 2.1mg/dL (1.8-2.4) Total Bilirubin 0.4mg/dL (0.2-1.0) Direct Bilirubin 0.1mg/dL (0.0-0.2) Aspartate Amino Transf (AST/SGOT) 20U/L (15-37) Alanine Aminotransferase (ALT/SGPT) 33U/L (14-59) Alkaline Phosphatase 93U/L (46-116) Creatine Kinase 211U/L (26-192) Creatine Kinase MB (Mass) 1.3ng/mL (0.0-3.6) Creatine Kinase MB Relative Index 0.6% (0-4) Troponin I Quantitative < 0.017ng/mL (0.000-0.055) < 0.017ng/mL (0.000-0.055) < 0.017ng/mL (0.000-0.055) MX-Lrs-X-Type Natriuretic Peptide 23pg/mL (0-449) Total Protein 8.6g/dL (6.4-8.2) Albumin 4.1g/dL (3.4-5.0) Lipase 439U/L (73-393) 326U/L (73-393) Thyroid Stimulating Hormone (TSH) 4.325uIU/mL (0.358-3.74) Urine Collection Type Unknown Urine Color Yellow Urine Clarity Clear Urine pH 6.5 Urine Specific Tina <=1.005 Urine Protein Negativemg/dL (NEG-TRACE) Urine Glucose (UA) Negativemg/dL (NEG) Urine Ketones (Stick) Negativemg/dL (NEG) Urine Blood Negative (NEG) Urine Nitrite Negative (NEG) Urine Bilirubin Negative (NEG) Urine Urobilinogen Dipstick 0.2mg/dL (0.2 mg/dL) Urine Leukocyte Esterase Negative (NEG) Urine RBC Rare/HPF (0-2) Urine WBC 0/HPF (0-4) Urine Squamous Epithelial Cells Few/LPF Urine Bacteria Few/HPF (0-FEW) Triglycerides Level 171mg/dL (0-150) Cholesterol Level 247mg/dL (0-200) LDL Cholesterol, Calculated 159mg/dL (0-100) VLDL Cholesterol, Calculated 34mg/dL (0-40) HDL Cholesterol 54mg/dL (40-60) Cholesterol/HDL Ratio 4.6 Free Thyroxine 1.04ng/dL (0.76-1.46) Review of Systems Review of Systems denies all 14 pt systems Assessment and Plan Assessmemt and Plan Problems Medical Problems: (1) Chest pain Status: Acute Problems: Comment Review of Relevant I have reviewed the following items grant (where applicable) has been applied. Labs Laboratory Tests Test 04/10/16 14:20 04/10/16 16:04 04/10/16 22:00 04/11/16 03:15 White Blood Count 7.3x10^3/uL (4.0-11.0) 5.9x10^3/uL (4.0-11.0) Red Blood Count 4.71x10^6/uL (3.50-5.40) 4.46x10^6/uL (3.50-5.40) Hemoglobin 12.6g/dL (12.0-15.5) 11.8g/dL (12.0-15.5) Hematocrit 39.0% (36.0-47.0) 36.8% (36.0-47.0) Mean Corpuscular Volume 83fL (79-100) 82fL (79-100) Mean Corpuscular Hemoglobin 27pg (25-35) 27pg (25-35) Mean Corpuscular Hemoglobin Concent 32g/dL (31-37) 32g/dL (31-37) Red Cell Distribution Width 14.1% (11.5-14.5) 14.2% (11.5-14.5) Platelet Count 258x10^3/uL (140-400) 252x10^3/uL (140-400) Neutrophils (%) (Auto) 26% (31-73) 39% (31-73) Lymphocytes (%) (Auto) 65% (24-48) 49% (24-48) Monocytes (%) (Auto) 8% (0-9) 10% (0-9) Eosinophils (%) (Auto) 2% (0-3) 2% (0-3) Basophils (%) (Auto) 1% (0-3) 1% (0-3) Neutrophils # (Auto) 1.9x10^3uL (1.8-7.7) 2.3x10^3uL (1.8-7.7) Lymphocytes # (Auto) 4.7x10^3/uL (1.0-4.8) 2.9x10^3/uL (1.0-4.8) Monocytes # (Auto) 0.6x10^3/uL (0.0-1.1) 0.6x10^3/uL (0.0-1.1) Eosinophils # (Auto) 0.1x10^3/uL (0.0-0.7) 0.1x10^3/uL (0.0-0.7) Basophils # (Auto) 0.1x10^3/uL (0.0-0.2) 0.0x10^3/uL (0.0-0.2) Segmented Neutrophils % 21% (35-66) Lymphocytes % 59% (24-48) Atypical Lymphocytes % (Manual) 13% (0-0) Monocytes % 6% (0-10) Basophils % 1% (0-3) Platelet Estimate Adequate (ADEQUATE) Prothrombin Time 12.6SEC (11.7-14.0) Prothromb Time International Ratio 1.0 (0.8-1.1) Sodium Level 135mmol/L (136-145) 137mmol/L (136-145) Potassium Level 3.7mmol/L (3.5-5.1) 4.0mmol/L (3.5-5.1) Chloride Level 96mmol/L (98-107) 99mmol/L (98-107) Carbon Dioxide Level 28mmol/L (21-32) 30mmol/L (21-32) Anion Gap 11 (6-14) 8 (6-14) Blood Urea Nitrogen 16mg/dL (7-20) 15mg/dL (7-20) Creatinine 1.4mg/dL (0.6-1.0) 1.2mg/dL (0.6-1.0) Estimated GFR (Cockcroft-Gault) 36.3 52.4 Glucose Level 167mg/dL (70-99) 106mg/dL (70-99) Calcium Level 9.9mg/dL (8.5-10.1) 9.5mg/dL (8.5-10.1) Magnesium Level 2.1mg/dL (1.8-2.4) Total Bilirubin 0.4mg/dL (0.2-1.0) Direct Bilirubin 0.1mg/dL (0.0-0.2) Aspartate Amino Transf (AST/SGOT) 20U/L (15-37) Alanine Aminotransferase (ALT/SGPT) 33U/L (14-59) Alkaline Phosphatase 93U/L (46-116) Creatine Kinase 211U/L (26-192) Creatine Kinase MB (Mass) 1.3ng/mL (0.0-3.6) Creatine Kinase MB Relative Index 0.6% (0-4) Troponin I Quantitative < 0.017ng/mL (0.000-0.055) < 0.017ng/mL (0.000-0.055) < 0.017ng/mL (0.000-0.055) BE-Wgk-C-Type Natriuretic Peptide 23pg/mL (0-449) Total Protein 8.6g/dL (6.4-8.2) Albumin 4.1g/dL (3.4-5.0) Lipase 439U/L (73-393) 326U/L (73-393) Thyroid Stimulating Hormone (TSH) 4.325uIU/mL (0.358-3.74) Urine Collection Type Unknown Urine Color Yellow Urine Clarity Clear Urine pH 6.5 Urine Specific Tina <=1.005 Urine Protein Negativemg/dL (NEG-TRACE) Urine Glucose (UA) Negativemg/dL (NEG) Urine Ketones (Stick) Negativemg/dL (NEG) Urine Blood Negative (NEG) Urine Nitrite Negative (NEG) Urine Bilirubin Negative (NEG) Urine Urobilinogen Dipstick 0.2mg/dL (0.2 mg/dL) Urine Leukocyte Esterase Negative (NEG) Urine RBC Rare/HPF (0-2) Urine WBC 0/HPF (0-4) Urine Squamous Epithelial Cells Few/LPF Urine Bacteria Few/HPF (0-FEW) Triglycerides Level 171mg/dL (0-150) Cholesterol Level 247mg/dL (0-200) LDL Cholesterol, Calculated 159mg/dL (0-100) VLDL Cholesterol, Calculated 34mg/dL (0-40) HDL Cholesterol 54mg/dL (40-60) Cholesterol/HDL Ratio 4.6 Free Thyroxine 1.04ng/dL (0.76-1.46) Laboratory Tests Test 04/10/16 14:20 04/10/16 16:04 04/10/16 22:00 04/11/16 03:15 White Blood Count 7.3x10^3/uL (4.0-11.0) 5.9x10^3/uL (4.0-11.0) Red Blood Count 4.71x10^6/uL (3.50-5.40) 4.46x10^6/uL (3.50-5.40) Hemoglobin 12.6g/dL (12.0-15.5) 11.8g/dL (12.0-15.5) Hematocrit 39.0% (36.0-47.0) 36.8% (36.0-47.0) Mean Corpuscular Volume 83fL (79-100) 82fL (79-100) Mean Corpuscular Hemoglobin 27pg (25-35) 27pg (25-35) Mean Corpuscular Hemoglobin Concent 32g/dL (31-37) 32g/dL (31-37) Red Cell Distribution Width 14.1% (11.5-14.5) 14.2% (11.5-14.5) Platelet Count 258x10^3/uL (140-400) 252x10^3/uL (140-400) Neutrophils (%) (Auto) 26% (31-73) 39% (31-73) Lymphocytes (%) (Auto) 65% (24-48) 49% (24-48) Monocytes (%) (Auto) 8% (0-9) 10% (0-9) Eosinophils (%) (Auto) 2% (0-3) 2% (0-3) Basophils (%) (Auto) 1% (0-3) 1% (0-3) Neutrophils # (Auto) 1.9x10^3uL (1.8-7.7) 2.3x10^3uL (1.8-7.7) Lymphocytes # (Auto) 4.7x10^3/uL (1.0-4.8) 2.9x10^3/uL (1.0-4.8) Monocytes # (Auto) 0.6x10^3/uL (0.0-1.1) 0.6x10^3/uL (0.0-1.1) Eosinophils # (Auto) 0.1x10^3/uL (0.0-0.7) 0.1x10^3/uL (0.0-0.7) Basophils # (Auto) 0.1x10^3/uL (0.0-0.2) 0.0x10^3/uL (0.0-0.2) Segmented Neutrophils % 21% (35-66) Lymphocytes % 59% (24-48) Atypical Lymphocytes % (Manual) 13% (0-0) Monocytes % 6% (0-10) Basophils % 1% (0-3) Platelet Estimate Adequate (ADEQUATE) Prothrombin Time 12.6SEC (11.7-14.0) Prothromb Time International Ratio 1.0 (0.8-1.1) Sodium Level 135mmol/L (136-145) 137mmol/L (136-145) Potassium Level 3.7mmol/L (3.5-5.1) 4.0mmol/L (3.5-5.1) Chloride Level 96mmol/L (98-107) 99mmol/L (98-107) Carbon Dioxide Level 28mmol/L (21-32) 30mmol/L (21-32) Anion Gap 11 (6-14) 8 (6-14) Blood Urea Nitrogen 16mg/dL (7-20) 15mg/dL (7-20) Creatinine 1.4mg/dL (0.6-1.0) 1.2mg/dL (0.6-1.0) Estimated GFR (Cockcroft-Gault) 36.3 52.4 Glucose Level 167mg/dL (70-99) 106mg/dL (70-99) Calcium Level 9.9mg/dL (8.5-10.1) 9.5mg/dL (8.5-10.1) Magnesium Level 2.1mg/dL (1.8-2.4) Total Bilirubin 0.4mg/dL (0.2-1.0) Direct Bilirubin 0.1mg/dL (0.0-0.2) Aspartate Amino Transf (AST/SGOT) 20U/L (15-37) Alanine Aminotransferase (ALT/SGPT) 33U/L (14-59) Alkaline Phosphatase 93U/L (46-116) Creatine Kinase 211U/L (26-192) Creatine Kinase MB (Mass) 1.3ng/mL (0.0-3.6) Creatine Kinase MB Relative Index 0.6% (0-4) Troponin I Quantitative < 0.017ng/mL (0.000-0.055) < 0.017ng/mL (0.000-0.055) < 0.017ng/mL (0.000-0.055) QC-Uxg-V-Type Natriuretic Peptide 23pg/mL (0-449) Total Protein 8.6g/dL (6.4-8.2) Albumin 4.1g/dL (3.4-5.0) Lipase 439U/L (73-393) 326U/L (73-393) Thyroid Stimulating Hormone (TSH) 4.325uIU/mL (0.358-3.74) Urine Collection Type Unknown Urine Color Yellow Urine Clarity Clear Urine pH 6.5 Urine Specific Tina <=1.005 Urine Protein Negativemg/dL (NEG-TRACE) Urine Glucose (UA) Negativemg/dL (NEG) Urine Ketones (Stick) Negativemg/dL (NEG) Urine Blood Negative (NEG) Urine Nitrite Negative (NEG) Urine Bilirubin Negative (NEG) Urine Urobilinogen Dipstick 0.2mg/dL (0.2 mg/dL) Urine Leukocyte Esterase Negative (NEG) Urine RBC Rare/HPF (0-2) Urine WBC 0/HPF (0-4) Urine Squamous Epithelial Cells Few/LPF Urine Bacteria Few/HPF (0-FEW) Triglycerides Level 171mg/dL (0-150) Cholesterol Level 247mg/dL (0-200) LDL Cholesterol, Calculated 159mg/dL (0-100) VLDL Cholesterol, Calculated 34mg/dL (0-40) HDL Cholesterol 54mg/dL (40-60) Cholesterol/HDL Ratio 4.6 Free Thyroxine 1.04ng/dL (0.76-1.46) Medications Current Medications Aspirin (Children'S Aspirin) 324 mg 1X ONCE PO Last administered on 04/10/16 14:34; Start 04/10/16 at 14:15; Stop 04/10/16 at 14:31; Status DC Nitroglycerin (Nitrostat) 0.4 mg PRN Q5MIN PRN SL CP RATING > 1/10 Last administered on 04/10/16 14:35; Start 04/10/16 at 14:15; Stop 04/11/16 at 14:14 Amlodipine Besylate (Norvasc) 5 mg DAILY PO Last administered on 04/11/16 09: 22; Start 04/11/16 at 09:00 Metoprolol Succinate (Toprol Xl) 50 mg DAILY PO Last administered on 04/11/16 09:23; Start 04/11/16 at 09:00 Triamterene/HCTZ (Maxzide 37.5/ 25mg) 1 tab DAILY PO Last administered on 09:23; Start 04/11/16 at 09:00 Acetaminophen (Tylenol) 650 mg PRN Q6HRS PRN PO FEVER > 100.5'F Last administered on 04/10/16 20:46; Start 04/10/16 at 16:15 Ondansetron HCl (Zofran) 4 mg PRN Q6HRS PRN IV NAUSEA/VOMITING; Start 04/10/16 at 16:15 Tramadol HCl (Ultram) 50 mg PRN Q6HRS PRN PO PAIN; Start 04/10/16 at 16:15 Labetalol HCl (Normodyne) 20 mg PRN Q4HRS PRN IVP ELEVATED BP, SEE COMMENTS; Start 04/10/16 at 16:15; Stop 04/10/16 at 16:30; Status DC Enoxaparin Sodium (Lovenox 30mg Syringe) 30 mg Q24H SQ ; Start 04/11/16 at 17:00 ; Stop 04/11/16 at 17:00; Status DC Losartan Potassium (Cozaar) 50 mg DAILY PO Last administered on 04/11/16 09:22 ; Start 04/11/16 at 09:00 Carvedilol (Coreg) 12.5 mg BIDWMEALS PO Last administered on 04/11/16 09:21; Start 04/10/16 at 17:00 Labetalol HCl (Normodyne) 20 mg PRN Q2HRS PRN IVP ELEVATED BP, SEE COMMENTS; Start 04/10/16 at 16:30 Aspirin (Ecotrin) 81 mg DAILYWBKFT PO Last administered on 04/11/16 09:21; Start 04/11/16 at 08:00 Enoxaparin Sodium (Lovenox 80mg Syringe) 80 mg 1X ONCE SQ Last administered on 04/10/16 20:47; Start 04/10/16 at 16:30; Stop 04/10/16 at 16:31; Status DC Atorvastatin Calcium (Lipitor) 20 mg QHS PO Last administered on 04/10/16 20: 46; Start 04/10/16 at 21:00 Enoxaparin Sodium (Lovenox 40mg Syringe) 40 mg Q24H SQ ; Start 04/11/16 at 17:00 Active Scripts Active Reported Triamterene-Hctz 37.5-25 Mg Tb (Triamterene/Hydrochlorothiazid) 1 Each Tablet 1 Tab PO DAILY Toprol Xl (Metoprolol Succinate) 50 Mg Tab.er.24h 1 Tab PO DAILY Amlodipine Besylate 5 Mg Tablet 5 Mg PO DAILY Vitals/I & O Vital Sign - Last 24 Hours 04/10/16 04/10/16 04/10/16 04/10/16 14:11 14:30 14:35 15:00 Temp 98.5 98.5 Pulse 106 100 100 96 Resp 16 18 B/P 211/95 155/70 211/95 140/68 Pulse Ox 97 100 96 O2 Delivery Room Air Room Air Room Air 04/10/16 04/10/16 04/10/16 04/10/16 15:30 16:00 16:30 18:17 Temp 97.7 97.7 Pulse 96 88 80 82 Resp 18 16 16 18 B/P 176/79 142/69 145/74 136/77 Pulse Ox 96 97 97 98 O2 Delivery Room Air Room Air Room Air Room Air 04/10/16 04/10/16 04/10/16 04/10/16 19:00 19:48 20:47 23:22 Temp 97.3 97.5 97.3 97.5 Pulse 78 82 67 Resp 20 18 B/P 158/80 136/77 117/58 Pulse Ox 96 93 O2 Delivery Room Air Room Air Room Air 04/11/16 04/11/16 04/11/16 04/11/16 02:47 07:00 09:21 09:22 Temp 98.2 98.2 Pulse 63 63 63 Resp 17 B/P 136/71 136/71 136/71 Pulse Ox 98 O2 Delivery Room Air Room Air 04/11/16 04/11/16 04/11/16 09:22 09:23 11:13 Temp 98.3 98.3 Pulse 63 63 64 Resp 17 B/P 136/71 136/71 132/66 Pulse Ox 95 O2 Delivery Room Air Intake and Output 04/10/16 04/10/16 04/11/16 15:00 23:00 07:00 Intake Total 100 ml Balance 100 ml ROBERT GODINEZ MD Apr 11, 2016 12:17
--- NOTE | 2016-04-11 12:23 | EKG ---
[facility] [address] [place] [address] Test Date: 2016-04-10 Test Time: 14:10:53 Pat Name: MARSHALL RODRIGUEZ Department: Room: 548 1 Gender: F Head Of Conservation: : 1935 Requested By: FREEDOM TOUSSAINT Order Number: [id number] Reading MD: Measurements Intervals [place] Rate: 115 P: -136 [place]: 70 QRS: -62 QRSD: 166 T: 59 QT: 354 QTc: 492 Interpretive Statements SUPRAVENTRICULAR RHYTHM ABNORMAL LEFT AXIS DEVIATION LEFT ANTERIOR FASCICULAR BLOCK RIGHT BUNDLE BRANCH BLOCK BIFASCICULAR BLOCK RVH WITH REPOLARIZATION ABNORMALITY ABNORMAL ECG RI6.01 No previous ECG available for comparison
--- NOTE | 2016-04-11 13:19 | PDOC ---
PROGRESS NOTES Subjective Subjective Patient seen and examined. She looks and feels better. Objective Objective Vital Signs Date Time Temp Pulse Resp B/P Pulse Ox O2 Delivery O2 Flow Rate FiO2 04/11/16 11:13 98.3 64 17 132/66 95 Room Air 98.3 Intake and Output 04/11/16 07:00 Intake Total 100 ml Balance 100 ml Intake Oral 100 ml # Voids 1 Physical Exam Abdomen: Normal bowel sounds Heart: Regular rate General: No acute distress Lungs: Clear to auscultation Assessment Assessment Problems Medical Problems: (1) Chest pain Status: Acute ASSESSMENT/PLAN 1. Chest pain: Pain has resolved. Patient has ruled out for myocardial infarction. Echocardiogram shows good LV function. We'll continue medical treatment. We'll perform stress testing. 2. Abnormal EKG: Negative for NE. Stress testing as above. 3. Accelerated HTN. Blood pressure significantly improved. Continue present treatment. 4. HLP 5. Suspected baseline CKD3 6. Subclinical hypothyroidism 7. Hx of lymphoma: 27 yrs ago treated with surgery and chemo 8. Hyperglycemia Recommendations 1. Continue present medications. 2. ECASA, continue with statin 3. Stress testing. Comment Review of Relevant I have reviewed the following items grant (where applicable) has been applied. Labs Laboratory Tests Test 04/10/16 14:20 04/10/16 16:04 04/10/16 22:00 04/11/16 03:15 White Blood Count 7.3x10^3/uL (4.0-11.0) 5.9x10^3/uL (4.0-11.0) Red Blood Count 4.71x10^6/uL (3.50-5.40) 4.46x10^6/uL (3.50-5.40) Hemoglobin 12.6g/dL (12.0-15.5) 11.8g/dL (12.0-15.5) Hematocrit 39.0% (36.0-47.0) 36.8% (36.0-47.0) Mean Corpuscular Volume 83fL (79-100) 82fL (79-100) Mean Corpuscular Hemoglobin 27pg (25-35) 27pg (25-35) Mean Corpuscular Hemoglobin Concent 32g/dL (31-37) 32g/dL (31-37) Red Cell Distribution Width 14.1% (11.5-14.5) 14.2% (11.5-14.5) Platelet Count 258x10^3/uL (140-400) 252x10^3/uL (140-400) Neutrophils (%) (Auto) 26% (31-73) 39% (31-73) Lymphocytes (%) (Auto) 65% (24-48) 49% (24-48) Monocytes (%) (Auto) 8% (0-9) 10% (0-9) Eosinophils (%) (Auto) 2% (0-3) 2% (0-3) Basophils (%) (Auto) 1% (0-3) 1% (0-3) Neutrophils # (Auto) 1.9x10^3uL (1.8-7.7) 2.3x10^3uL (1.8-7.7) Lymphocytes # (Auto) 4.7x10^3/uL (1.0-4.8) 2.9x10^3/uL (1.0-4.8) Monocytes # (Auto) 0.6x10^3/uL (0.0-1.1) 0.6x10^3/uL (0.0-1.1) Eosinophils # (Auto) 0.1x10^3/uL (0.0-0.7) 0.1x10^3/uL (0.0-0.7) Basophils # (Auto) 0.1x10^3/uL (0.0-0.2) 0.0x10^3/uL (0.0-0.2) Segmented Neutrophils % 21% (35-66) Lymphocytes % 59% (24-48) Atypical Lymphocytes % (Manual) 13% (0-0) Monocytes % 6% (0-10) Basophils % 1% (0-3) Platelet Estimate Adequate (ADEQUATE) Prothrombin Time 12.6SEC (11.7-14.0) Prothromb Time International Ratio 1.0 (0.8-1.1) Sodium Level 135mmol/L (136-145) 137mmol/L (136-145) Potassium Level 3.7mmol/L (3.5-5.1) 4.0mmol/L (3.5-5.1) Chloride Level 96mmol/L (98-107) 99mmol/L (98-107) Carbon Dioxide Level 28mmol/L (21-32) 30mmol/L (21-32) Anion Gap 11 (6-14) 8 (6-14) Blood Urea Nitrogen 16mg/dL (7-20) 15mg/dL (7-20) Creatinine 1.4mg/dL (0.6-1.0) 1.2mg/dL (0.6-1.0) Estimated GFR (Cockcroft-Gault) 36.3 52.4 Glucose Level 167mg/dL (70-99) 106mg/dL (70-99) Calcium Level 9.9mg/dL (8.5-10.1) 9.5mg/dL (8.5-10.1) Magnesium Level 2.1mg/dL (1.8-2.4) Total Bilirubin 0.4mg/dL (0.2-1.0) Direct Bilirubin 0.1mg/dL (0.0-0.2) Aspartate Amino Transf (AST/SGOT) 20U/L (15-37) Alanine Aminotransferase (ALT/SGPT) 33U/L (14-59) Alkaline Phosphatase 93U/L (46-116) Creatine Kinase 211U/L (26-192) Creatine Kinase MB (Mass) 1.3ng/mL (0.0-3.6) Creatine Kinase MB Relative Index 0.6% (0-4) Troponin I Quantitative < 0.017ng/mL (0.000-0.055) < 0.017ng/mL (0.000-0.055) < 0.017ng/mL (0.000-0.055) WB-Usj-C-Type Natriuretic Peptide 23pg/mL (0-449) Total Protein 8.6g/dL (6.4-8.2) Albumin 4.1g/dL (3.4-5.0) Lipase 439U/L (73-393) 326U/L (73-393) Thyroid Stimulating Hormone (TSH) 4.325uIU/mL (0.358-3.74) Urine Collection Type Unknown Urine Color Yellow Urine Clarity Clear Urine pH 6.5 Urine Specific [place] <=1.005 Urine Protein Negativemg/dL (NEG-TRACE) Urine Glucose (UA) Negativemg/dL (NEG) Urine Ketones (Stick) Negativemg/dL (NEG) Urine Blood Negative (NEG) Urine Nitrite Negative (NEG) Urine Bilirubin Negative (NEG) Urine Urobilinogen Dipstick 0.2mg/dL (0.2 mg/dL) Urine Leukocyte Esterase Negative (NEG) Urine RBC Rare/HPF (0-2) Urine WBC 0/HPF (0-4) Urine Squamous Epithelial Cells Few/LPF Urine Bacteria Few/HPF (0-FEW) Triglycerides Level 171mg/dL (0-150) Cholesterol Level 247mg/dL (0-200) LDL Cholesterol, Calculated 159mg/dL (0-100) VLDL Cholesterol, Calculated 34mg/dL (0-40) HDL Cholesterol 54mg/dL (40-60) Cholesterol/HDL Ratio 4.6 Free Thyroxine 1.04ng/dL (0.76-1.46) Laboratory Tests Test 04/10/16 14:20 04/10/16 16:04 04/10/16 22:00 04/11/16 03:15 White Blood Count 7.3x10^3/uL (4.0-11.0) 5.9x10^3/uL (4.0-11.0) Red Blood Count 4.71x10^6/uL (3.50-5.40) 4.46x10^6/uL (3.50-5.40) Hemoglobin 12.6g/dL (12.0-15.5) 11.8g/dL (12.0-15.5) Hematocrit 39.0% (36.0-47.0) 36.8% (36.0-47.0) Mean Corpuscular Volume 83fL (79-100) 82fL (79-100) Mean Corpuscular Hemoglobin 27pg (25-35) 27pg (25-35) Mean Corpuscular Hemoglobin Concent 32g/dL (31-37) 32g/dL (31-37) Red Cell Distribution Width 14.1% (11.5-14.5) 14.2% (11.5-14.5) Platelet Count 258x10^3/uL (140-400) 252x10^3/uL (140-400) Neutrophils (%) (Auto) 26% (31-73) 39% (31-73) Lymphocytes (%) (Auto) 65% (24-48) 49% (24-48) Monocytes (%) (Auto) 8% (0-9) 10% (0-9) Eosinophils (%) (Auto) 2% (0-3) 2% (0-3) Basophils (%) (Auto) 1% (0-3) 1% (0-3) Neutrophils # (Auto) 1.9x10^3uL (1.8-7.7) 2.3x10^3uL (1.8-7.7) Lymphocytes # (Auto) 4.7x10^3/uL (1.0-4.8) 2.9x10^3/uL (1.0-4.8) Monocytes # (Auto) 0.6x10^3/uL (0.0-1.1) 0.6x10^3/uL (0.0-1.1) Eosinophils # (Auto) 0.1x10^3/uL (0.0-0.7) 0.1x10^3/uL (0.0-0.7) Basophils # (Auto) 0.1x10^3/uL (0.0-0.2) 0.0x10^3/uL (0.0-0.2) Segmented Neutrophils % 21% (35-66) Lymphocytes % 59% (24-48) Atypical Lymphocytes % (Manual) 13% (0-0) Monocytes % 6% (0-10) Basophils % 1% (0-3) Platelet Estimate Adequate (ADEQUATE) Prothrombin Time 12.6SEC (11.7-14.0) Prothromb Time International Ratio 1.0 (0.8-1.1) Sodium Level 135mmol/L (136-145) 137mmol/L (136-145) Potassium Level 3.7mmol/L (3.5-5.1) 4.0mmol/L (3.5-5.1) Chloride Level 96mmol/L (98-107) 99mmol/L (98-107) Carbon Dioxide Level 28mmol/L (21-32) 30mmol/L (21-32) Anion Gap 11 (6-14) 8 (6-14) Blood Urea Nitrogen 16mg/dL (7-20) 15mg/dL (7-20) Creatinine 1.4mg/dL (0.6-1.0) 1.2mg/dL (0.6-1.0) Estimated GFR (Cockcroft-Gault) 36.3 52.4 Glucose Level 167mg/dL (70-99) 106mg/dL (70-99) Calcium Level 9.9mg/dL (8.5-10.1) 9.5mg/dL (8.5-10.1) Magnesium Level 2.1mg/dL (1.8-2.4) Total Bilirubin 0.4mg/dL (0.2-1.0) Direct Bilirubin 0.1mg/dL (0.0-0.2) Aspartate Amino Transf (AST/SGOT) 20U/L (15-37) Alanine Aminotransferase (ALT/SGPT) 33U/L (14-59) Alkaline Phosphatase 93U/L (46-116) Creatine Kinase 211U/L (26-192) Creatine Kinase MB (Mass) 1.3ng/mL (0.0-3.6) Creatine Kinase MB Relative Index 0.6% (0-4) Troponin I Quantitative < 0.017ng/mL (0.000-0.055) < 0.017ng/mL (0.000-0.055) < 0.017ng/mL (0.000-0.055) MG-Oun-T-Type Natriuretic Peptide 23pg/mL (0-449) Total Protein 8.6g/dL (6.4-8.2) Albumin 4.1g/dL (3.4-5.0) Lipase 439U/L (73-393) 326U/L (73-393) Thyroid Stimulating Hormone (TSH) 4.325uIU/mL (0.358-3.74) Urine Collection Type Unknown Urine Color Yellow Urine Clarity Clear Urine pH 6.5 Urine Specific [place] <=1.005 Urine Protein Negativemg/dL (NEG-TRACE) Urine Glucose (UA) Negativemg/dL (NEG) Urine Ketones (Stick) Negativemg/dL (NEG) Urine Blood Negative (NEG) Urine Nitrite Negative (NEG) Urine Bilirubin Negative (NEG) Urine Urobilinogen Dipstick 0.2mg/dL (0.2 mg/dL) Urine Leukocyte Esterase Negative (NEG) Urine RBC Rare/HPF (0-2) Urine WBC 0/HPF (0-4) Urine Squamous Epithelial Cells Few/LPF Urine Bacteria Few/HPF (0-FEW) Triglycerides Level 171mg/dL (0-150) Cholesterol Level 247mg/dL (0-200) LDL Cholesterol, Calculated 159mg/dL (0-100) VLDL Cholesterol, Calculated 34mg/dL (0-40) HDL Cholesterol 54mg/dL (40-60) Cholesterol/HDL Ratio 4.6 Free Thyroxine 1.04ng/dL (0.76-1.46) Medications Current Medications Aspirin (Children'S Aspirin) 324 mg 1X ONCE PO Last administered on 04/10/16 14:34; Start 04/10/16 at 14:15; Stop 04/10/16 at 14:31; Status DC Nitroglycerin (Nitrostat) 0.4 mg PRN Q5MIN PRN SL CP RATING > 1/10 Last administered on 04/10/16 14:35; Start 04/10/16 at 14:15; Stop 04/11/16 at 14:14 Amlodipine Besylate (Norvasc) 5 mg DAILY PO Last administered on 04/11/16 09: 22; Start 04/11/16 at 09:00 Metoprolol Succinate (Toprol Xl) 50 mg DAILY PO Last administered on 04/11/16 09:23; Start 04/11/16 at 09:00 Triamterene/HCTZ (Maxzide 37.5/ 25mg) 1 tab DAILY PO Last administered on 09:23; Start 04/11/16 at 09:00 Acetaminophen (Tylenol) 650 mg PRN Q6HRS PRN PO FEVER > 100.5'F Last administered on 04/10/16 20:46; Start 04/10/16 at 16:15 Ondansetron HCl (Zofran) 4 mg PRN Q6HRS PRN IV NAUSEA/VOMITING; Start 04/10/16 at 16:15 Tramadol HCl (Ultram) 50 mg PRN Q6HRS PRN PO PAIN; Start 04/10/16 at 16:15 Labetalol HCl (Normodyne) 20 mg PRN Q4HRS PRN IVP ELEVATED BP, SEE COMMENTS; Start 04/10/16 at 16:15; Stop 04/10/16 at 16:30; Status DC Enoxaparin Sodium (Lovenox 30mg Syringe) 30 mg Q24H SQ ; Start 04/11/16 at 17:00 ; Stop 04/11/16 at 17:00; Status DC Losartan Potassium (Cozaar) 50 mg DAILY PO Last administered on 04/11/16 09:22 ; Start 04/11/16 at 09:00 Carvedilol (Coreg) 12.5 mg BIDWMEALS PO Last administered on 04/11/16 09:21; Start 04/10/16 at 17:00 Labetalol HCl (Normodyne) 20 mg PRN Q2HRS PRN IVP ELEVATED BP, SEE COMMENTS; Start 04/10/16 at 16:30 Aspirin (Ecotrin) 81 mg DAILYWBKFT PO Last administered on 04/11/16 09:21; Start 04/11/16 at 08:00 Enoxaparin Sodium (Lovenox 80mg Syringe) 80 mg 1X ONCE SQ Last administered on 04/10/16 20:47; Start 04/10/16 at 16:30; Stop 04/10/16 at 16:31; Status DC Atorvastatin Calcium (Lipitor) 20 mg QHS PO Last administered on 04/10/16 20: 46; Start 04/10/16 at 21:00 Enoxaparin Sodium (Lovenox 40mg Syringe) 40 mg Q24H SQ ; Start 04/11/16 at 17:00 Active Scripts Active Reported Triamterene-Hctz 37.5-25 Mg Tb (Triamterene/Hydrochlorothiazid) 1 Each Tablet 1 Tab PO DAILY Toprol Xl (Metoprolol Succinate) 50 Mg Tab.er.24h 1 Tab PO DAILY Amlodipine Besylate 5 Mg Tablet 5 Mg PO DAILY Vitals/I & O Vital Sign - Last 24 Hours 04/10/16 04/10/16 04/10/16 04/10/16 14:11 14:30 14:35 15:00 Temp 98.5 98.5 Pulse 106 100 100 96 Resp 18 B/P 211/95 155/70 211/95 140/68 Pulse Ox 97 100 96 O2 Delivery Room Air Room Air Room Air 04/10/16 04/10/16 04/10/16 04/10/16 15:30 16:00 16:30 18:17 Temp 97.7 97.7 Pulse 96 88 80 82 Resp 18 18 B/P 176/79 142/69 145/74 136/77 Pulse Ox 96 97 97 98 O2 Delivery Room Air Room Air Room Air Room Air 04/10/16 04/10/16 04/10/16 04/10/16 19:00 19:48 20:47 23:22 Temp 97.3 97.5 97.3 97.5 Pulse 78 82 67 Resp 18 B/P 158/80 136/77 117/58 Pulse Ox 96 93 O2 Delivery Room Air Room Air Room Air 04/11/16 04/11/16 04/11/16 04/11/16 02:47 07:00 09:21 09:22 Temp 98.2 98.2 Pulse 63 63 63 Resp 17 B/P 136/71 136/71 136/71 Pulse Ox 98 O2 Delivery Room Air Room Air 04/11/16 04/11/16 04/11/16 09:22 09:23 11:13 Temp 98.3 98.3 Pulse 63 63 64 Resp 17 B/P 136/71 136/71 132/66 Pulse Ox 95 O2 Delivery Room Air Intake and Output 04/10/16 04/10/16 04/11/16 15:00 23:00 07:00 Intake Total 100 ml Balance 100 ml BITA FREIRE MD Apr 11, 2016 13:19
--- NOTE | 2016-04-11 14:59 | PDOC ---
PROGRESS NOTES Subjective Subjective c/c - f/u of Lymphocytosis Objective Objective Vital Signs Date Time Temp Pulse Resp B/P Pulse Ox O2 Delivery O2 Flow Rate FiO2 04/11/16 11:13 98.3 64 17 132/66 95 Room Air 98.3 Intake and Output 04/11/16 07:00 Intake Total 100 ml Balance 100 ml Intake Oral 100 ml # Voids 1 Physical Exam Heart: Normal S1, Normal S2 General: Alert, Oriented X3 Lungs: Clear to auscultation Psych/Mental Status: Mental status NL Assessment Assessment Problems Medical Problems: (1) Chest pain Status: Acute IMPRESSION AND PLAN: 1. Lymphocytosis with evidence of atypical lymphocytes noted on 04/10/2016, total WBC count is normal at 7.3; however, her lymphocytes are elevated at 65% with an absolute lymphocyte count of 4.7. The presence of 13% atypical lymphocytes raises the concern for possible chronic lymphocytic leukemia. Hence, I will proceed with further workup with peripheral blood flow cytometry for CLL. There is no clinical evidence of lymphadenopathy or hepatosplenomegaly. Since the hemoglobin and platelets are normal, she would not need chemotherapy even if she is diagnosed with CLL and observation would be the primary modality of management. I have explained in detail to the patient and she understands and agrees with the plan. f/u with me in 1-2 weeks. 2. Chest pain, appreciate Cardiology consultation and management. Stress test tomorrow. Comment Review of Relevant I have reviewed the following items grant (where applicable) has been applied. Labs Laboratory Tests Test 04/10/16 14:20 04/10/16 16:04 04/10/16 22:00 04/11/16 03:15 White Blood Count 7.3x10^3/uL (4.0-11.0) 5.9x10^3/uL (4.0-11.0) Red Blood Count 4.71x10^6/uL (3.50-5.40) 4.46x10^6/uL (3.50-5.40) Hemoglobin 12.6g/dL (12.0-15.5) 11.8g/dL (12.0-15.5) Hematocrit 39.0% (36.0-47.0) 36.8% (36.0-47.0) Mean Corpuscular Volume 83fL (79-100) 82fL (79-100) Mean Corpuscular Hemoglobin 27pg (25-35) 27pg (25-35) Mean Corpuscular Hemoglobin Concent 32g/dL (31-37) 32g/dL (31-37) Red Cell Distribution Width 14.1% (11.5-14.5) 14.2% (11.5-14.5) Platelet Count 258x10^3/uL (140-400) 252x10^3/uL (140-400) Neutrophils (%) (Auto) 26% (31-73) 39% (31-73) Lymphocytes (%) (Auto) 65% (24-48) 49% (24-48) Monocytes (%) (Auto) 8% (0-9) 10% (0-9) Eosinophils (%) (Auto) 2% (0-3) 2% (0-3) Basophils (%) (Auto) 1% (0-3) 1% (0-3) Neutrophils # (Auto) 1.9x10^3uL (1.8-7.7) 2.3x10^3uL (1.8-7.7) Lymphocytes # (Auto) 4.7x10^3/uL (1.0-4.8) 2.9x10^3/uL (1.0-4.8) Monocytes # (Auto) 0.6x10^3/uL (0.0-1.1) 0.6x10^3/uL (0.0-1.1) Eosinophils # (Auto) 0.1x10^3/uL (0.0-0.7) 0.1x10^3/uL (0.0-0.7) Basophils # (Auto) 0.1x10^3/uL (0.0-0.2) 0.0x10^3/uL (0.0-0.2) Segmented Neutrophils % 21% (35-66) Lymphocytes % 59% (24-48) Atypical Lymphocytes % (Manual) 13% (0-0) Monocytes % 6% (0-10) Basophils % 1% (0-3) Platelet Estimate Adequate (ADEQUATE) Prothrombin Time 12.6SEC (11.7-14.0) Prothromb Time International Ratio 1.0 (0.8-1.1) Sodium Level 135mmol/L (136-145) 137mmol/L (136-145) Potassium Level 3.7mmol/L (3.5-5.1) 4.0mmol/L (3.5-5.1) Chloride Level 96mmol/L (98-107) 99mmol/L (98-107) Carbon Dioxide Level 28mmol/L (21-32) 30mmol/L (21-32) Anion Gap 11 (6-14) 8 (6-14) Blood Urea Nitrogen 16mg/dL (7-20) 15mg/dL (7-20) Creatinine 1.4mg/dL (0.6-1.0) 1.2mg/dL (0.6-1.0) Estimated GFR (Cockcroft-Gault) 36.3 52.4 Glucose Level 167mg/dL (70-99) 106mg/dL (70-99) Calcium Level 9.9mg/dL (8.5-10.1) 9.5mg/dL (8.5-10.1) Magnesium Level 2.1mg/dL (1.8-2.4) Total Bilirubin 0.4mg/dL (0.2-1.0) Direct Bilirubin 0.1mg/dL (0.0-0.2) Aspartate Amino Transf (AST/SGOT) 20U/L (15-37) Alanine Aminotransferase (ALT/SGPT) 33U/L (14-59) Alkaline Phosphatase 93U/L (46-116) Creatine Kinase 211U/L (26-192) Creatine Kinase MB (Mass) 1.3ng/mL (0.0-3.6) Creatine Kinase MB Relative Index 0.6% (0-4) Troponin I Quantitative < 0.017ng/mL (0.000-0.055) < 0.017ng/mL (0.000-0.055) < 0.017ng/mL (0.000-0.055) SY-Xxo-L-Type Natriuretic Peptide 23pg/mL (0-449) Total Protein 8.6g/dL (6.4-8.2) Albumin 4.1g/dL (3.4-5.0) Lipase 439U/L (73-393) 326U/L (73-393) Thyroid Stimulating Hormone (TSH) 4.325uIU/mL (0.358-3.74) Urine Collection Type Unknown Urine Color Yellow Urine Clarity Clear Urine pH 6.5 Urine Specific [place] <=1.005 Urine Protein Negativemg/dL (NEG-TRACE) Urine Glucose (UA) Negativemg/dL (NEG) Urine Ketones (Stick) Negativemg/dL (NEG) Urine Blood Negative (NEG) Urine Nitrite Negative (NEG) Urine Bilirubin Negative (NEG) Urine Urobilinogen Dipstick 0.2mg/dL (0.2 mg/dL) Urine Leukocyte Esterase Negative (NEG) Urine RBC Rare/HPF (0-2) Urine WBC 0/HPF (0-4) Urine Squamous Epithelial Cells Few/LPF Urine Bacteria Few/HPF (0-FEW) Triglycerides Level 171mg/dL (0-150) Cholesterol Level 247mg/dL (0-200) LDL Cholesterol, Calculated 159mg/dL (0-100) VLDL Cholesterol, Calculated 34mg/dL (0-40) HDL Cholesterol 54mg/dL (40-60) Cholesterol/HDL Ratio 4.6 Free Thyroxine 1.04ng/dL (0.76-1.46) Laboratory Tests Test 04/10/16 16:04 04/10/16 22:00 04/11/16 03:15 Urine Collection Type Unknown Urine Color Yellow Urine Clarity Clear Urine pH 6.5 Urine Specific [place] <=1.005 Urine Protein Negativemg/dL (NEG-TRACE) Urine Glucose (UA) Negativemg/dL (NEG) Urine Ketones (Stick) Negativemg/dL (NEG) Urine Blood Negative (NEG) Urine Nitrite Negative (NEG) Urine Bilirubin Negative (NEG) Urine Urobilinogen Dipstick 0.2mg/dL (0.2 mg/dL) Urine Leukocyte Esterase Negative (NEG) Urine RBC Rare/HPF (0-2) Urine WBC 0/HPF (0-4) Urine Squamous Epithelial Cells Few/LPF Urine Bacteria Few/HPF (0-FEW) Troponin I Quantitative < 0.017ng/mL (0.000-0.055) < 0.017ng/mL (0.000-0.055) White Blood Count 5.9x10^3/uL (4.0-11.0) Red Blood Count 4.46x10^6/uL (3.50-5.40) Hemoglobin 11.8g/dL (12.0-15.5) Hematocrit 36.8% (36.0-47.0) Mean Corpuscular Volume 82fL (79-100) Mean Corpuscular Hemoglobin 27pg (25-35) Mean Corpuscular Hemoglobin Concent 32g/dL (31-37) Red Cell Distribution Width 14.2% (11.5-14.5) Platelet Count 252x10^3/uL (140-400) Neutrophils (%) (Auto) 39% (31-73) Lymphocytes (%) (Auto) 49% (24-48) Monocytes (%) (Auto) 10% (0-9) Eosinophils (%) (Auto) 2% (0-3) Basophils (%) (Auto) 1% (0-3) Neutrophils # (Auto) 2.3x10^3uL (1.8-7.7) Lymphocytes # (Auto) 2.9x10^3/uL (1.0-4.8) Monocytes # (Auto) 0.6x10^3/uL (0.0-1.1) Eosinophils # (Auto) 0.1x10^3/uL (0.0-0.7) Basophils # (Auto) 0.0x10^3/uL (0.0-0.2) Sodium Level 137mmol/L (136-145) Potassium Level 4.0mmol/L (3.5-5.1) Chloride Level 99mmol/L (98-107) Carbon Dioxide Level 30mmol/L (21-32) Anion Gap 8 (6-14) Blood Urea Nitrogen 15mg/dL (7-20) Creatinine 1.2mg/dL (0.6-1.0) Estimated GFR (Cockcroft-Gault) 52.4 Glucose Level 106mg/dL (70-99) Calcium Level 9.5mg/dL (8.5-10.1) Triglycerides Level 171mg/dL (0-150) Cholesterol Level 247mg/dL (0-200) LDL Cholesterol, Calculated 159mg/dL (0-100) VLDL Cholesterol, Calculated 34mg/dL (0-40) HDL Cholesterol 54mg/dL (40-60) Cholesterol/HDL Ratio 4.6 Lipase 326U/L (73-393) Free Thyroxine 1.04ng/dL (0.76-1.46) Medications Current Medications Aspirin (Children'S Aspirin) 324 mg 1X ONCE PO Last administered on 04/10/16 14:34; Start 04/10/16 at 14:15; Stop 04/10/16 at 14:31; Status DC Nitroglycerin (Nitrostat) 0.4 mg PRN Q5MIN PRN SL CP RATING > 1/10 Last administered on 04/10/16 14:35; Start 04/10/16 at 14:15; Stop 04/11/16 at 14:14 ; Status DC Amlodipine Besylate (Norvasc) 5 mg DAILY PO Last administered on 04/11/16 09: 22; Start 04/11/16 at 09:00 Metoprolol Succinate (Toprol Xl) 50 mg DAILY PO Last administered on 04/11/16 09:23; Start 04/11/16 at 09:00 Triamterene/HCTZ (Maxzide 37.5/ 25mg) 1 tab DAILY PO Last administered on 09:23; Start 04/11/16 at 09:00 Acetaminophen (Tylenol) 650 mg PRN Q6HRS PRN PO FEVER > 100.5'F Last administered on 04/10/16 20:46; Start 04/10/16 at 16:15 Ondansetron HCl (Zofran) 4 mg PRN Q6HRS PRN IV NAUSEA/VOMITING; Start 04/10/16 at 16:15 Tramadol HCl (Ultram) 50 mg PRN Q6HRS PRN PO PAIN; Start 04/10/16 at 16:15 Labetalol HCl (Normodyne) 20 mg PRN Q4HRS PRN IVP ELEVATED BP, SEE COMMENTS; Start 04/10/16 at 16:15; Stop 04/10/16 at 16:30; Status DC Enoxaparin Sodium (Lovenox 30mg Syringe) 30 mg Q24H SQ ; Start 04/11/16 at 17:00 ; Stop 04/11/16 at 17:00; Status DC Losartan Potassium (Cozaar) 50 mg DAILY PO Last administered on 04/11/16 09:22 ; Start 04/11/16 at 09:00 Carvedilol (Coreg) 12.5 mg BIDWMEALS PO Last administered on 04/11/16 09:21; Start 04/10/16 at 17:00 Labetalol HCl (Normodyne) 20 mg PRN Q2HRS PRN IVP ELEVATED BP, SEE COMMENTS; Start 04/10/16 at 16:30 Aspirin (Ecotrin) 81 mg DAILYWBKFT PO Last administered on 04/11/16 09:21; Start 04/11/16 at 08:00 Enoxaparin Sodium (Lovenox 80mg Syringe) 80 mg 1X ONCE SQ Last administered on 04/10/16 20:47; Start 04/10/16 at 16:30; Stop 04/10/16 at 16:31; Status DC Atorvastatin Calcium (Lipitor) 20 mg QHS PO Last administered on 04/10/16 20: 46; Start 04/10/16 at 21:00 Enoxaparin Sodium (Lovenox 40mg Syringe) 40 mg Q24H SQ ; Start 04/11/16 at 17:00 Active Scripts Active Reported Triamterene-Hctz 37.5-25 Mg Tb (Triamterene/Hydrochlorothiazid) 1 Each Tablet 1 Tab PO DAILY Toprol Xl (Metoprolol Succinate) 50 Mg Tab.er.24h 1 Tab PO DAILY Amlodipine Besylate 5 Mg Tablet 5 Mg PO DAILY Vitals/I & O Vital Sign - Last 24 Hours 04/10/16 04/10/16 04/10/16 04/10/16 15:00 15:30 16:00 16:30 Pulse 96 96 88 80 Resp 18 18 16 16 B/P 140/68 176/79 142/69 145/74 Pulse Ox 96 96 97 97 O2 Delivery Room Air Room Air Room Air Room Air 04/10/16 04/10/16 04/10/16 04/10/16 18:17 19:00 19:48 20:47 Temp 97.7 97.3 97.7 97.3 Pulse 82 78 82 Resp 18 20 B/P 136/77 158/80 136/77 Pulse Ox 98 96 O2 Delivery Room Air Room Air Room Air 04/10/16 04/11/16 04/11/16 04/11/16 23:22 02:47 07:00 09:21 Temp 97.5 98.2 97.5 98.2 Pulse 67 63 63 Resp 18 17 B/P 117/58 136/71 136/71 Pulse Ox 93 98 O2 Delivery Room Air Room Air Room Air 04/11/16 04/11/16 04/11/16 04/11/16 09:22 09:22 09:23 11:13 Temp 98.3 98.3 Pulse 63 63 63 64 Resp 17 B/P 136/71 136/71 136/71 132/66 Pulse Ox 95 O2 Delivery Room Air Intake and Output 04/10/16 04/10/16 04/11/16 15:00 23:00 07:00 Intake Total 100 ml Balance 100 ml SHERYL BE MD Apr 11, 2016 14:59
[2016-04-11 15:21] VITALS: BP 109/51
[2016-04-11] MEDS ORDERED: DIPHENHYDRAMINE HCL 25 MG CAPSULE PO PRN ×2 (16:15→20:45)
[2016-04-11] MEDS ORDERED: ENOXAPARIN 40 MG/0.4 ML DISP.SYRIN. SQ SCH (17:00)
[2016-04-11] MEDS ORDERED: ENOXAPARIN 30 MG/0.3 ML DISP.SYRIN. SQ SCH (17:00)
[2016-04-11 19:00] VITALS: BP 123/65
[2016-04-11] MEDS: ATORVASTATIN CALCIUM 20 MG TABLET PO SCH (20:59)
[2016-04-11 22:31] VITALS: BP 105/61
[2016-04-12 03:17] VITALS: BP 118/63
[2016-04-12 07:00] VITALS: BP 113/65
[2016-04-12] MEDS ORDERED: REGADENOSON 0.4 MG/5 ML DISP.SYRIN. IV ONE (09:00)
[2016-04-12 11:00] VITALS: BP 113/59
[2016-04-12] MEDS: LOSARTAN POTASSIUM 50 MG TABLET. PO SCH (11:33)
[2016-04-12] MEDS: TRIAMTERENE/HCTZ 37.5/25MG TABLET. PO SCH (11:33)
[2016-04-12] MEDS: ASPIRIN ENTERIC COATED 81 MG TABLET.DR. PO SCH (11:33)
[2016-04-12 11:34] VITALS: BP 113/59
[2016-04-12] MEDS: CARVEDILOL 12.5 MG TABLET PO SCH (11:34)
[2016-04-12] MEDS: AMLODIPINE BESYLATE 5 MG TABLET PO SCH (11:34)
[2016-04-12] MEDS: METOPROLOL SUCC 24HR ER 50 MG TAB.ER.24H. PO SCH (11:34)
--- NOTE | 2016-04-12 11:52 | PDOC ---
PROGRESS NOTES Subjective Subjective The patient reports feeling well today. No chest pain. Objective Objective Vital Signs Date Time Temp Pulse Resp B/P Pulse Ox O2 Delivery O2 Flow Rate FiO2 04/12/16 11:34 70 113/59 04/12/16 11:00 97.5 20 97 Room Air 97.5 Physical Exam Abdomen: Normal bowel sounds Heart: Regular rate General: No acute distress Lungs: Clear to auscultation Assessment Assessment Problems Medical Problems: (1) Chest pain Status: Acute ASSESSMENT/PLAN 1. Chest pain: Pain has resolved. Patient has ruled out for myocardial infarction. Echocardiogram shows good LV function. Stress testing in progress. If no reversible ischemia at the patient may go home later today from a cardiac viewpoint. 2. Abnormal EKG: Negative for VT. Stress testing as above. 3. Accelerated HTN. Blood pressure significantly improved. Continue present treatment. 4. HLP 5. Suspected baseline CKD3 6. Subclinical hypothyroidism 7. Hx of lymphoma: 27 yrs ago treated with surgery and chemo 8. Hyperglycemia Comment Review of Relevant I have reviewed the following items grant (where applicable) has been applied. Labs Laboratory Tests Test 04/10/16 14:20 04/10/16 16:04 04/10/16 22:00 04/11/16 03:15 White Blood Count 7.3x10^3/uL (4.0-11.0) 5.9x10^3/uL (4.0-11.0) Red Blood Count 4.71x10^6/uL (3.50-5.40) 4.46x10^6/uL (3.50-5.40) Hemoglobin 12.6g/dL (12.0-15.5) 11.8g/dL (12.0-15.5) Hematocrit 39.0% (36.0-47.0) 36.8% (36.0-47.0) Mean Corpuscular Volume 83fL (79-100) 82fL (79-100) Mean Corpuscular Hemoglobin 27pg (25-35) 27pg (25-35) Mean Corpuscular Hemoglobin Concent 32g/dL (31-37) 32g/dL (31-37) Red Cell Distribution Width 14.1% (11.5-14.5) 14.2% (11.5-14.5) Platelet Count 258x10^3/uL (140-400) 252x10^3/uL (140-400) Neutrophils (%) (Auto) 26% (31-73) 39% (31-73) Lymphocytes (%) (Auto) 65% (24-48) 49% (24-48) Monocytes (%) (Auto) 8% (0-9) 10% (0-9) Eosinophils (%) (Auto) 2% (0-3) 2% (0-3) Basophils (%) (Auto) 1% (0-3) 1% (0-3) Neutrophils # (Auto) 1.9x10^3uL (1.8-7.7) 2.3x10^3uL (1.8-7.7) Lymphocytes # (Auto) 4.7x10^3/uL (1.0-4.8) 2.9x10^3/uL (1.0-4.8) Monocytes # (Auto) 0.6x10^3/uL (0.0-1.1) 0.6x10^3/uL (0.0-1.1) Eosinophils # (Auto) 0.1x10^3/uL (0.0-0.7) 0.1x10^3/uL (0.0-0.7) Basophils # (Auto) 0.1x10^3/uL (0.0-0.2) 0.0x10^3/uL (0.0-0.2) Segmented Neutrophils % 21% (35-66) Lymphocytes % 59% (24-48) Atypical Lymphocytes % (Manual) 13% (0-0) Monocytes % 6% (0-10) Basophils % 1% (0-3) Platelet Estimate Adequate (ADEQUATE) Prothrombin Time 12.6SEC (11.7-14.0) Prothromb Time International Ratio 1.0 (0.8-1.1) Sodium Level 135mmol/L (136-145) 137mmol/L (136-145) Potassium Level 3.7mmol/L (3.5-5.1) 4.0mmol/L (3.5-5.1) Chloride Level 96mmol/L (98-107) 99mmol/L (98-107) Carbon Dioxide Level 28mmol/L (21-32) 30mmol/L (21-32) Anion Gap 11 (6-14) 8 (6-14) Blood Urea Nitrogen 16mg/dL (7-20) 15mg/dL (7-20) Creatinine 1.4mg/dL (0.6-1.0) 1.2mg/dL (0.6-1.0) Estimated GFR (Cockcroft-Gault) 36.3 52.4 Glucose Level 167mg/dL (70-99) 106mg/dL (70-99) Calcium Level 9.9mg/dL (8.5-10.1) 9.5mg/dL (8.5-10.1) Magnesium Level 2.1mg/dL (1.8-2.4) Total Bilirubin 0.4mg/dL (0.2-1.0) Direct Bilirubin 0.1mg/dL (0.0-0.2) Aspartate Amino Transf (AST/SGOT) 20U/L (15-37) Alanine Aminotransferase (ALT/SGPT) 33U/L (14-59) Alkaline Phosphatase 93U/L (46-116) Creatine Kinase 211U/L (26-192) Creatine Kinase MB (Mass) 1.3ng/mL (0.0-3.6) Creatine Kinase MB Relative Index 0.6% (0-4) Troponin I Quantitative < 0.017ng/mL (0.000-0.055) < 0.017ng/mL (0.000-0.055) < 0.017ng/mL (0.000-0.055) YH-Iyo-M-Type Natriuretic Peptide 23pg/mL (0-449) Total Protein 8.6g/dL (6.4-8.2) Albumin 4.1g/dL (3.4-5.0) Lipase 439U/L (73-393) 326U/L (73-393) Thyroid Stimulating Hormone (TSH) 4.325uIU/mL (0.358-3.74) Urine Collection Type Unknown Urine Color Yellow Urine Clarity Clear Urine pH 6.5 Urine Specific [place] <=1.005 Urine Protein Negativemg/dL (NEG-TRACE) Urine Glucose (UA) Negativemg/dL (NEG) Urine Ketones (Stick) Negativemg/dL (NEG) Urine Blood Negative (NEG) Urine Nitrite Negative (NEG) Urine Bilirubin Negative (NEG) Urine Urobilinogen Dipstick 0.2mg/dL (0.2 mg/dL) Urine Leukocyte Esterase Negative (NEG) Urine RBC Rare/HPF (0-2) Urine WBC 0/HPF (0-4) Urine Squamous Epithelial Cells Few/LPF Urine Bacteria Few/HPF (0-FEW) Triglycerides Level 171mg/dL (0-150) Cholesterol Level 247mg/dL (0-200) LDL Cholesterol, Calculated 159mg/dL (0-100) VLDL Cholesterol, Calculated 34mg/dL (0-40) HDL Cholesterol 54mg/dL (40-60) Cholesterol/HDL Ratio 4.6 Free Thyroxine 1.04ng/dL (0.76-1.46) Medications Current Medications Aspirin (Children'S Aspirin) 324 mg 1X ONCE PO Last administered on 04/10/16 14:34; Start 04/10/16 at 14:15; Stop 04/10/16 at 14:31; Status DC Nitroglycerin (Nitrostat) 0.4 mg PRN Q5MIN PRN SL CP RATING > 1/10 Last administered on 04/10/16 14:35; Start 04/10/16 at 14:15; Stop 04/11/16 at 14:14 ; Status DC Amlodipine Besylate (Norvasc) 5 mg DAILY PO Last administered on 04/12/16 11: 34; Start 04/11/16 at 09:00 Metoprolol Succinate (Toprol Xl) 50 mg DAILY PO Last administered on 04/12/16 11:34; Start 04/11/16 at 09:00 Triamterene/HCTZ (Maxzide 37.5/ 25mg) 1 tab DAILY PO Last administered on 11:33; Start 04/11/16 at 09:00 Acetaminophen (Tylenol) 650 mg PRN Q6HRS PRN PO FEVER > 100.5'F Last administered on 04/10/16 20:46; Start 04/10/16 at 16:15 Ondansetron HCl (Zofran) 4 mg PRN Q6HRS PRN IV NAUSEA/VOMITING; Start 04/10/16 at 16:15 Tramadol HCl (Ultram) 50 mg PRN Q6HRS PRN PO PAIN; Start 04/10/16 at 16:15 Labetalol HCl (Normodyne) 20 mg PRN Q4HRS PRN IVP ELEVATED BP, SEE COMMENTS; Start 04/10/16 at 16:15; Stop 04/10/16 at 16:30; Status DC Enoxaparin Sodium (Lovenox 30mg Syringe) 30 mg Q24H SQ ; Start 04/11/16 at 17:00 ; Stop 04/11/16 at 17:00; Status DC Losartan Potassium (Cozaar) 50 mg DAILY PO Last administered on 04/12/16 11:33 ; Start 04/11/16 at 09:00 Carvedilol (Coreg) 12.5 mg BIDWMEALS PO Last administered on 04/12/16 11:34; Start 04/10/16 at 17:00 Labetalol HCl (Normodyne) 20 mg PRN Q2HRS PRN IVP ELEVATED BP, SEE COMMENTS; Start 04/10/16 at 16:30 Aspirin (Ecotrin) 81 mg DAILYWBKFT PO Last administered on 04/12/16 11:33; Start 04/11/16 at 08:00 Enoxaparin Sodium (Lovenox 80mg Syringe) 80 mg 1X ONCE SQ Last administered on 04/10/16 20:47; Start 04/10/16 at 16:30; Stop 04/10/16 at 16:31; Status DC Atorvastatin Calcium (Lipitor) 20 mg QHS PO Last administered on 04/11/16 20: 59; Start 04/10/16 at 21:00 Enoxaparin Sodium (Lovenox 40mg Syringe) 40 mg Q24H SQ Last administered on 17:06; Start 04/11/16 at 17:00 Diphenhydramine HCl (Benadryl) 25 mg PRN QHS PRN PO INSOMNIA Last administered on 04/11/16 20:59; Start 04/11/16 at 16:15 Diphenhydramine HCl (Benadryl) 25 mg PRN QHS PRN PO INSOMNIA; Start 04/11/16 at 20:45; Stop 04/11/16 at 20:45; Status DC Regadenoson (Lexiscan) 0.4 mg 1X ONCE IV Last administered on 04/12/16 09:29 ; Start 04/12/16 at 09:00; Stop 04/12/16 at 09:01; Status DC Active Scripts Active Reported Triamterene-Hctz 37.5-25 Mg Tb (Triamterene/Hydrochlorothiazid) 1 Each Tablet 1 Tab PO DAILY Toprol Xl (Metoprolol Succinate) 50 Mg Tab.er.24h 1 Tab PO DAILY Amlodipine Besylate 5 Mg Tablet 5 Mg PO DAILY Vitals/I & O Vital Sign - Last 24 Hours 04/11/16 04/11/16 04/11/16 04/11/16 15:21 17:07 19:00 19:50 Temp 98.4 98.4 98.4 98.4 Pulse 61 61 68 Resp 18 B/P 109/51 109/51 123/65 Pulse Ox 94 95 O2 Delivery Room Air Room Air Room Air 04/11/16 04/12/16 04/12/16 04/12/16 22:31 03:17 07:00 11:00 Temp 98.1 98.3 97.7 97.5 98.1 98.3 97.7 97.5 Pulse 58 65 67 70 Resp 18 18 20 B/P 105/61 118/63 113/65 113/59 Pulse Ox 93 98 96 97 O2 Delivery Room Air Room Air Room Air Room Air 04/12/16 04/12/16 04/12/16 04/12/16 11:33 11:34 11:34 11:34 Pulse 70 70 70 70 B/P 113/59 113/59 113/59 113/59 BITA FREIRE MD Apr 12, 2016 11:52
--- NOTE | 2016-04-12 12:08 | RAD ---
APPROVED REPORT Test Type: Pharmacological Stress Nurse/Tech: Renzo Harkins RN Test Indications: Chest discomfort Cardiac History: see ehr Medications: see ehr Medical History: see ehr Resting ECG: SR with BBB Resting Heart Rate: 64 bpm Resting Blood Pressure: 135/67mmHg Pretest Chest Pain: None Nurse/Tech Notes Lungs CTA, S1, S2 Consent: The procedure was explained to the patient in lay terms. Informed consent was witnessed. Saji eout was entered into [facility]. History and Stress Test performed by [facility] Details Pharmacologic stress testing was performed using 0.4mg per 5ml of regadenoson given intravenously ove r 7-10 seconds. Stress Symptoms No chest pain or symptoms. POST EXERCISE Reason for Termination: Infusion complete Max HR: 85 bpm Max Blood Pressure: 145/68mmHg Blood Pressure response to exercise: Normal blood pressure response during stress. Chest Pain: No. Arrhythmia: No. ST Change: No. INTERPRETATION Stress EKG Conclusion: The resting EKG shows a sinus rhythm, left anterior fascicular block and left ventricular hypertrophy. The stress EKG shows no significant changes from baseline. No EKG evidence of stress-induced ischemia. Imaging Protocol IMAGE PROTOCOL: Rest Tc-99m/stress Tc-99m 1 day Rest: Stress: Viability: Radiopharm.Tc99m [id number] Sestamibi [id number] 33mCi Duration 15min. 12min. Img Date 04/12/2016 04/12/2016 Inj-Img [id number]. 45min. Rest Admin Site:IV - Right AntecubitalAdministrator:RT Ishaan (R)(N) Stress Admin Site: IV - Right AntecubitalAdministrator: RT Ishaan (R)(N) STRESS DATA End Diast. Vol.49.0mlAv. Heart Rate67.0bpm End Syst. Vol.8.0mlCO Index BSA0.0L/min Myocardial Mass98.0gEject. Khcgifyv01.0% Stress Rates Pk. Fill Rate3.26EDV/secLVtime Pk. Fill 251.16msec Pk. Empty Rate5.06ESV/secLVtime Pk. Zfgob100.74msec 1/3 Pk. Fill0.99EDV/sec Stress Scores Regional WT1.00Summed WT18.00 Regional WM0.00Summed WM1.00 LV Perfusion The stress scans showed no significant defects. The resting scans showed no significant defects. Nuclear imaging shows no reversible ischemia or infarct. Wall Motion Normal left ventricular systolic function with an ejection fraction of greater than 70%. LV Perf. Quant 17 Seg. SSS0.00 17 Seg. SRS0.00 17 Seg. SDS0.00 Stress Defect Extent (% LAD)0.00Rest Defect Extent (% LAD)0.00Rev. Defect Extent (% LAD)0.00 Stress Defect Extent (% LCX) 0.00Rest Defect Extent (% LCX)0.00Rev. Defect Extent (% LCX)0.00 Stress Defect Extent (% RCA)0.00Rest Defect Extent (% RCA)0.00Rev. Defect Extent (% RCA)0.00 Stress Defect Extent (% PRAVEEN)0.00Rest Defect Extent (% PRAVEEN)0.00Rev. Defect Extent (% PRAVEEN)0.00 Conclusion 1. Baseline abnormal EKG but no EKG evidence of stress-induced ischemia. 2. Nuclear imaging shows no reversible ischemia or infarct. 3. Normal left ventricular systolic function with an ejection fraction of greater than 70%. 4. Low to moderately low risk Lexiscan nuclear stress test.
--- NOTE | 2016-04-12 14:16 | PDOC3 ---
Discharge Summary Visit Information Date of Admission: Apr 10, 2016 Date of Discharge: Apr 12, 2016 Admitting Diagnosis Comment: CP neg MPI Dysl;ipidmeia HTN, urgency resolved Final Diagnosis Problems Medical Problems: (1) Chest pain Status: Acute Brief Hospital Course Allergies Allergies Coded Allergies Type Severity Reaction Last Updated Verified No Known Drug Allergies 04/10/16 No Vital Signs Vital Signs Date Time Temp Pulse Resp B/P Pulse Ox O2 Delivery O2 Flow Rate FiO2 04/12/16 11:34 70 113/59 04/12/16 11:00 97.5 20 97 Room Air 97.5 Lab Results Laboratory Tests Test 04/10/16 14:20 04/10/16 16:04 04/10/16 22:00 04/11/16 03:15 White Blood Count 7.3x10^3/uL (4.0-11.0) 5.9x10^3/uL (4.0-11.0) Red Blood Count 4.71x10^6/uL (3.50-5.40) 4.46x10^6/uL (3.50-5.40) Hemoglobin 12.6g/dL (12.0-15.5) 11.8g/dL (12.0-15.5) Hematocrit 39.0% (36.0-47.0) 36.8% (36.0-47.0) Mean Corpuscular Volume 83fL (79-100) 82fL (79-100) Mean Corpuscular Hemoglobin 27pg (25-35) 27pg (25-35) Mean Corpuscular Hemoglobin Concent 32g/dL (31-37) 32g/dL (31-37) Red Cell Distribution Width 14.1% (11.5-14.5) 14.2% (11.5-14.5) Platelet Count 258x10^3/uL (140-400) 252x10^3/uL (140-400) Neutrophils (%) (Auto) 26% (31-73) 39% (31-73) Lymphocytes (%) (Auto) 65% (24-48) 49% (24-48) Monocytes (%) (Auto) 8% (0-9) 10% (0-9) Eosinophils (%) (Auto) 2% (0-3) 2% (0-3) Basophils (%) (Auto) 1% (0-3) 1% (0-3) Neutrophils # (Auto) 1.9x10^3uL (1.8-7.7) 2.3x10^3uL (1.8-7.7) Lymphocytes # (Auto) 4.7x10^3/uL (1.0-4.8) 2.9x10^3/uL (1.0-4.8) Monocytes # (Auto) 0.6x10^3/uL (0.0-1.1) 0.6x10^3/uL (0.0-1.1) Eosinophils # (Auto) 0.1x10^3/uL (0.0-0.7) 0.1x10^3/uL (0.0-0.7) Basophils # (Auto) 0.1x10^3/uL (0.0-0.2) 0.0x10^3/uL (0.0-0.2) Segmented Neutrophils % 21% (35-66) Lymphocytes % 59% (24-48) Atypical Lymphocytes % (Manual) 13% (0-0) Monocytes % 6% (0-10) Basophils % 1% (0-3) Platelet Estimate Adequate (ADEQUATE) Prothrombin Time 12.6SEC (11.7-14.0) Prothromb Time International Ratio 1.0 (0.8-1.1) Sodium Level 135mmol/L (136-145) 137mmol/L (136-145) Potassium Level 3.7mmol/L (3.5-5.1) 4.0mmol/L (3.5-5.1) Chloride Level 96mmol/L (98-107) 99mmol/L (98-107) Carbon Dioxide Level 28mmol/L (21-32) 30mmol/L (21-32) Anion Gap 11 (6-14) 8 (6-14) Blood Urea Nitrogen 16mg/dL (7-20) 15mg/dL (7-20) Creatinine 1.4mg/dL (0.6-1.0) 1.2mg/dL (0.6-1.0) Estimated GFR (Cockcroft-Gault) 36.3 52.4 Glucose Level 167mg/dL (70-99) 106mg/dL (70-99) Calcium Level 9.9mg/dL (8.5-10.1) 9.5mg/dL (8.5-10.1) Magnesium Level 2.1mg/dL (1.8-2.4) Total Bilirubin 0.4mg/dL (0.2-1.0) Direct Bilirubin 0.1mg/dL (0.0-0.2) Aspartate Amino Transf (AST/SGOT) 20U/L (15-37) Alanine Aminotransferase (ALT/SGPT) 33U/L (14-59) Alkaline Phosphatase 93U/L (46-116) Creatine Kinase 211U/L (26-192) Creatine Kinase MB (Mass) 1.3ng/mL (0.0-3.6) Creatine Kinase MB Relative Index 0.6% (0-4) Troponin I Quantitative < 0.017ng/mL (0.000-0.055) < 0.017ng/mL (0.000-0.055) < 0.017ng/mL (0.000-0.055) BP-[place]-I-Type Natriuretic Peptide 23pg/mL (0-449) Total Protein 8.6g/dL (6.4-8.2) Albumin 4.1g/dL (3.4-5.0) Lipase 439U/L (73-393) 326U/L (73-393) Thyroid Stimulating Hormone (TSH) 4.325uIU/mL (0.358-3.74) Urine Collection Type Unknown Urine Color Yellow Urine Clarity Clear Urine pH 6.5 Urine Specific [place] <=1.005 Urine Protein Negativemg/dL (NEG-TRACE) Urine Glucose (UA) Negativemg/dL (NEG) Urine Ketones (Stick) Negativemg/dL (NEG) Urine Blood Negative (NEG) Urine Nitrite Negative (NEG) Urine Bilirubin Negative (NEG) Urine Urobilinogen Dipstick 0.2mg/dL (0.2 mg/dL) Urine Leukocyte Esterase Negative (NEG) Urine RBC Rare/HPF (0-2) Urine WBC 0/HPF (0-4) Urine Squamous Epithelial Cells Few/LPF Urine Bacteria Few/HPF (0-FEW) Triglycerides Level 171mg/dL (0-150) Cholesterol Level 247mg/dL (0-200) LDL Cholesterol, Calculated 159mg/dL (0-100) VLDL Cholesterol, Calculated 34mg/dL (0-40) HDL Cholesterol 54mg/dL (40-60) Cholesterol/HDL Ratio 4.6 Free Thyroxine 1.04ng/dL (0.76-1.46) Brief Hospital Course Ms. Barrientos is a 80 old Aa female admitted for CP and HTN urgency, MPI neg, COurse remarkable for high lymphocytes, heme onc consulted, Initially planned for flow cytometry but lymphocytes not high enough hence doubted CLL, no further work up,. To ff up PCP Dr. Geoffrey Silverman Pt seen and examined Dc time 31 mins COunselled Dw RN and family COnsults: heme onc, cards Proc: MPI Discharge Information Condition at Discharge: Improved, Stable Disposition/Orders: D/C to Home Scheduled Amlodipine Besylate (Amlodipine Besylate) 5 MG PO DAILY (Reported) Metoprolol Succinate (Toprol Xl) 1 TAB PO DAILY (Reported) Triamterene/Hydrochlorothiazid (Triamterene-Hctz 37.5-25 Mg Tb) 1 TAB PO DAILY ( Reported) ROBERT GODINEZ MD Apr 12, 2016 14:16
--- NOTE | 2016-04-12 14:32 | PDOC ---
PROGRESS NOTES Subjective Subjective c/c - f/u of Lymphocytosis Objective Objective Vital Signs Date Time Temp Pulse Resp B/P Pulse Ox O2 Delivery O2 Flow Rate FiO2 04/12/16 11:34 70 113/59 04/12/16 11:00 97.5 20 97 Room Air 97.5 Physical Exam Heart: Normal S1, Normal S2 General: Alert, Oriented X3 Neuro: Normal speech Psych/Mental Status: Mental status NL Assessment Assessment Problems Medical Problems: (1) Chest pain Status: Acute IMPRESSION AND PLAN: 1. Lymphocytosis with evidence of atypical lymphocytes noted on 04/10/2016, total WBC count is normal at 7.3; however, her lymphocytes are elevated at 65% with an absolute lymphocyte count of 4.7. The presence of 13% atypical lymphocytes raises the concern for possible chronic lymphocytic leukemia. Hence, I will proceed with further workup with peripheral blood flow cytometry for CLL. There is no clinical evidence of lymphadenopathy or hepatosplenomegaly. Since the hemoglobin and platelets are normal, she would not need chemotherapy even if she is diagnosed with CLL and observation would be the primary modality of management. I have explained in detail to the patient and she understands and agrees with the plan. I d/w RN, flow cytometry cannot be done till tomorrow. She is being discharged today, hence I have advised f/u with me in 1-2 weeks. 2. Chest pain, appreciate Cardiology consultation and management. Stress test tomorrow. Comment Review of Relevant I have reviewed the following items grant (where applicable) has been applied. Labs Laboratory Tests Test 04/10/16 16:04 04/10/16 22:00 04/11/16 03:15 Urine Collection Type Unknown Urine Color Yellow Urine Clarity Clear Urine pH 6.5 Urine Specific [place] <=1.005 Urine Protein Negativemg/dL (NEG-TRACE) Urine Glucose (UA) Negativemg/dL (NEG) Urine Ketones (Stick) Negativemg/dL (NEG) Urine Blood Negative (NEG) Urine Nitrite Negative (NEG) Urine Bilirubin Negative (NEG) Urine Urobilinogen Dipstick 0.2mg/dL (0.2 mg/dL) Urine Leukocyte Esterase Negative (NEG) Urine RBC Rare/HPF (0-2) Urine WBC 0/HPF (0-4) Urine Squamous Epithelial Cells Few/LPF Urine Bacteria Few/HPF (0-FEW) Troponin I Quantitative < 0.017ng/mL (0.000-0.055) < 0.017ng/mL (0.000-0.055) White Blood Count 5.9x10^3/uL (4.0-11.0) Red Blood Count 4.46x10^6/uL (3.50-5.40) Hemoglobin 11.8g/dL (12.0-15.5) Hematocrit 36.8% (36.0-47.0) Mean Corpuscular Volume 82fL (79-100) Mean Corpuscular Hemoglobin 27pg (25-35) Mean Corpuscular Hemoglobin Concent 32g/dL (31-37) Red Cell Distribution Width 14.2% (11.5-14.5) Platelet Count 252x10^3/uL (140-400) Neutrophils (%) (Auto) 39% (31-73) Lymphocytes (%) (Auto) 49% (24-48) Monocytes (%) (Auto) 10% (0-9) Eosinophils (%) (Auto) 2% (0-3) Basophils (%) (Auto) 1% (0-3) Neutrophils # (Auto) 2.3x10^3uL (1.8-7.7) Lymphocytes # (Auto) 2.9x10^3/uL (1.0-4.8) Monocytes # (Auto) 0.6x10^3/uL (0.0-1.1) Eosinophils # (Auto) 0.1x10^3/uL (0.0-0.7) Basophils # (Auto) 0.0x10^3/uL (0.0-0.2) Sodium Level 137mmol/L (136-145) Potassium Level 4.0mmol/L (3.5-5.1) Chloride Level 99mmol/L (98-107) Carbon Dioxide Level 30mmol/L (21-32) Anion Gap 8 (6-14) Blood Urea Nitrogen 15mg/dL (7-20) Creatinine 1.2mg/dL (0.6-1.0) Estimated GFR (Cockcroft-Gault) 52.4 Glucose Level 106mg/dL (70-99) Calcium Level 9.5mg/dL (8.5-10.1) Triglycerides Level 171mg/dL (0-150) Cholesterol Level 247mg/dL (0-200) LDL Cholesterol, Calculated 159mg/dL (0-100) VLDL Cholesterol, Calculated 34mg/dL (0-40) HDL Cholesterol 54mg/dL (40-60) Cholesterol/HDL Ratio 4.6 Lipase 326U/L (73-393) Free Thyroxine 1.04ng/dL (0.76-1.46) Medications Current Medications Aspirin (Children'S Aspirin) 324 mg 1X ONCE PO Last administered on 04/10/16 14:34; Start 04/10/16 at 14:15; Stop 04/10/16 at 14:31; Status DC Nitroglycerin (Nitrostat) 0.4 mg PRN Q5MIN PRN SL CP RATING > 1/10 Last administered on 04/10/16 14:35; Start 04/10/16 at 14:15; Stop 04/11/16 at 14:14 ; Status DC Amlodipine Besylate (Norvasc) 5 mg DAILY PO Last administered on 04/12/16 11: 34; Start 04/11/16 at 09:00 Metoprolol Succinate (Toprol Xl) 50 mg DAILY PO Last administered on 04/12/16 11:34; Start 04/11/16 at 09:00 Triamterene/HCTZ (Maxzide 37.5/ 25mg) 1 tab DAILY PO Last administered on 11:33; Start 04/11/16 at 09:00 Acetaminophen (Tylenol) 650 mg PRN Q6HRS PRN PO FEVER > 100.5'F Last administered on 04/10/16 20:46; Start 04/10/16 at 16:15 Ondansetron HCl (Zofran) 4 mg PRN Q6HRS PRN IV NAUSEA/VOMITING; Start 04/10/16 at 16:15 Tramadol HCl (Ultram) 50 mg PRN Q6HRS PRN PO PAIN; Start 04/10/16 at 16:15 Labetalol HCl (Normodyne) 20 mg PRN Q4HRS PRN IVP ELEVATED BP, SEE COMMENTS; Start 04/10/16 at 16:15; Stop 04/10/16 at 16:30; Status DC Enoxaparin Sodium (Lovenox 30mg Syringe) 30 mg Q24H SQ ; Start 04/11/16 at 17:00 ; Stop 04/11/16 at 17:00; Status DC Losartan Potassium (Cozaar) 50 mg DAILY PO Last administered on 04/12/16 11:33 ; Start 04/11/16 at 09:00 Carvedilol (Coreg) 12.5 mg BIDWMEALS PO Last administered on 04/12/16 11:34; Start 04/10/16 at 17:00 Labetalol HCl (Normodyne) 20 mg PRN Q2HRS PRN IVP ELEVATED BP, SEE COMMENTS; Start 04/10/16 at 16:30 Aspirin (Ecotrin) 81 mg DAILYWBKFT PO Last administered on 04/12/16 11:33; Start 04/11/16 at 08:00 Enoxaparin Sodium (Lovenox 80mg Syringe) 80 mg 1X ONCE SQ Last administered on 04/10/16 20:47; Start 04/10/16 at 16:30; Stop 04/10/16 at 16:31; Status DC Atorvastatin Calcium (Lipitor) 20 mg QHS PO Last administered on 04/11/16 20: 59; Start 04/10/16 at 21:00 Enoxaparin Sodium (Lovenox 40mg Syringe) 40 mg Q24H SQ Last administered on 17:06; Start 04/11/16 at 17:00 Diphenhydramine HCl (Benadryl) 25 mg PRN QHS PRN PO INSOMNIA Last administered on 04/11/16 20:59; Start 04/11/16 at 16:15 Diphenhydramine HCl (Benadryl) 25 mg PRN QHS PRN PO INSOMNIA; Start 04/11/16 at 20:45; Stop 04/11/16 at 20:45; Status DC Regadenoson (Lexiscan) 0.4 mg 1X ONCE IV Last administered on 04/12/16 09:29 ; Start 04/12/16 at 09:00; Stop 04/12/16 at 09:01; Status DC Active Scripts Active Reported Triamterene-Hctz 37.5-25 Mg Tb (Triamterene/Hydrochlorothiazid) 1 Each Tablet 1 Tab PO DAILY Toprol Xl (Metoprolol Succinate) 50 Mg Tab.er.24h 1 Tab PO DAILY Amlodipine Besylate 5 Mg Tablet 5 Mg PO DAILY Vitals/I & O Vital Sign - Last 24 Hours 04/11/16 04/11/16 04/11/16 04/11/16 15:21 17:07 19:00 19:50 Temp 98.4 98.4 98.4 98.4 Pulse 61 61 68 Resp 18 B/P 109/51 109/51 123/65 Pulse Ox 94 95 O2 Delivery Room Air Room Air Room Air 04/11/16 04/12/16 04/12/16 04/12/16 22:31 03:17 07:00 11:00 Temp 98.1 98.3 97.7 97.5 98.1 98.3 97.7 97.5 Pulse 58 65 67 70 Resp 18 20 B/P 105/61 118/63 113/65 113/59 Pulse Ox 93 98 96 97 O2 Delivery Room Air Room Air Room Air Room Air 04/12/16 04/12/16 04/12/16 04/12/16 11:33 11:34 11:34 11:34 Pulse 70 70 70 70 B/P 113/59 113/59 113/59 113/59 SHERYL BE MD Apr 12, 2016 14:32
== END 2016-04-12 16:00 | disposition home or self-care (01) ==
LOC: ER 14:02 → 5 SOUTH 15:20
PROVIDERS: ADMIT Internal Medicine; ATTEND Internal Medicine
DX: R07.9 Chest pain, unspecified (principal); I16.0 Hypertensive urgency; E66.9 Obesity, unspecified; E78.5 Hyperlipidemia, unspecified; D72.820 Lymphocytosis (symptomatic); I12.9 Hypertensive chronic kidney disease with stage 1 through stage 4 chronic kidney disease, or unspecified chronic kidney disease; N18.3 Chronic kidney disease, stage 3 (moderate); R94.31 Abnormal electrocardiogram [ECG] [EKG]; E03.9 Hypothyroidism, unspecified; R73.9 Hyperglycemia, unspecified; M19.90 Unspecified osteoarthritis, unspecified site; Z85.72 Personal history of non-Hodgkin lymphomas
CPT/HCPCS: 36415; 71010; 78452; 80048; 80061; 80076; 81001; 82550; 82553; 83690; 83735; 83880; 84439; 84443; 84484; 85007; 85027; 85610; 93005; 93017; 93306; 93970; 96372; 99285; A9500; G0378; J1650; J2785; Q0163; 96374; 96375; 96376; G0379

== ENCOUNTER 2017-05-22 11:55 | Emergency (ER) | payer OTHER ==
[2017-05-22 13:38] LABS: ADD MAN DIFF? NO
[2017-05-22 13:40] LABS: BASO % 1 % (0-3); BILIRUBIN,URINE NEGATIVE (NEG); CLARITY,URINE CLEAR; COLOR,URINE YELLOW; EOS % 1 % (0-3); GLUCOSE,URINE NEGATIVE (NEG); HEMATOCRIT 39.2 % (36.0-47.0); HEMOGLOBIN 13.1 g/dL (12.0-15.5); LYMPH # 1.9 x10^3/uL (1.0-4.8); LYMPH % 39 % (24-48); MEAN CORPUSCULAR HEMOGLOBIN 27 pg (25-35); MEAN CORPUSCULAR HGB CONC 33 g/dL (31-37); MEAN CORPUSCULAR VOLUME 81 fL (79-100); MONO # 0.4 x10^3/uL (0.0-1.1); MONO % 9 % (0-9); NEUT # 2.5 x10^3uL (1.8-7.7); NEUT % 51 % (31-73); NITRITE,URINE NEGATIVE (NEG); PH,URINE 6.5; PLATELET COUNT 278 x10^3/uL (140-400); PROTEIN,URINE NEGATIVE (NEG-TRACE); RED BLOOD COUNT 4.85 x10^6/uL (3.50-5.40); RED CELL DISTRIBUTION WIDTH 13.8 % (11.5-14.5); UROBILINOGEN,URINE 0.2 mg/dL (0.2 mg/dL); WHITE BLOOD COUNT 4.8 x10^3/uL (4.0-11.0)
[2017-05-22 13:45] LABS: SQUAMOUS EPITHELIAL CELL,UR MANY /LPF
[2017-05-22 13:47] LABS: BACTERIA,URINE MANY /HPF (0-FEW); RBC,URINE OCC /HPF (0-2)
[2017-05-22 13:49] LABS: ANION GAP 9 (6-14); BLOOD UREA NITROGEN 16 mg/dL (7-20); CALCIUM 10.1 mg/dL (8.5-10.1); CARBON DIOXIDE 30 mmol/L (21-32); CHLORIDE 98 mmol/L (98-107); CREATININE 1.2 mg/dL (0.6-1.0); GFR 52.3; GLUCOSE 102 mg/dL (70-99); SODIUM 137 mmol/L (136-145)
[2017-05-22 13:55] LABS: ALBUMIN 4.2 g/dL (3.4-5.0); ALK PHOS 102 U/L (46-116); ALT (SGPT) 28 U/L (14-59); AST (SGOT) 18 U/L (15-37); DIRECT BILIRUBIN 0.1 mg/dL (0.0-0.2); TOTAL BILIRUBIN 0.5 mg/dL (0.2-1.0)
== END 2017-05-22 14:47 | disposition home or self-care (01) ==
LOC: ER 11:55
DX: H93.13 Tinnitus, bilateral (principal); E78.00 Pure hypercholesterolemia, unspecified; I10 Essential (primary) hypertension
CPT/HCPCS: 36415; 80048; 80076; 81001; 85025; 87086; 99284

== ENCOUNTER 2017-11-03 06:06 | Emergency (ER) | payer OTHER ==
[~2017-11-03] VITALS: Ht 162.6 cm; Wt 78.9 kg
[~2017-11-03 06:06] MED LIST: AMLO5TAB7 PO; METO-269 PO; TRIA1TAB3 PO
[2017-11-03] MEDS ORDERED: LABETALOL 20 MG/4 ML DISP.SYRIN. IVP ONE (06:30)
--- NOTE | 2017-11-03 06:58 | PHYS DOC ---
Past Medical History Past Medical History: High Cholesterol, Hypertension Past Surgical History: No Surgical History Additional Past Surgical Histo: "cancer surgery 27 years ago lymph node rt neck & chemo for 6 months." Alcohol Use: None Drug Use: None Adult General Chief Complaint Chief Complaint: HYPERTENSION HPI HPI Patient is an 82-year-old female who appears much younger than her stated age presents with a 12 hour history of palpitations/elevated heart rate and blood pressure that's been up. She states there is one of her blood pressure medications that she didn't take yesterday. She denies any overt chest discomfort. She denies any nausea or vomiting. She adamantly denies any shortness of breath or dyspnea on exertion. She states she has not had any unilateral leg swelling. She denies any nausea or vomiting.[] Review of Systems Review of Systems Constitutional: Denies fever or chills [] Eyes: Denies change in visual acuity, redness, or eye pain [] HENT: Denies nasal congestion or sore throat [] Respiratory: Denies cough or shortness of breath [] Cardiovascular: No additional information not addressed in HPI [] GI: Denies abdominal pain, nausea, vomiting, bloody stools or diarrhea [] : Denies dysuria or hematuria [] Musculoskeletal: Denies back pain or joint pain [] Integument: Denies rash or skin lesions [] Neurologic: Denies headache, focal weakness or sensory changes [] Endocrine: Denies polyuria or polydipsia [] All other systems were reviewed and found to be within normal limits, except as documented in this note. Current Medications Current Medications Current Medications Medications (Trade) Dose Ordered Sig/Comfort Start Time Stop Time Status Last Admin Dose Admin Labetalol HCl (Normodyne Iv Push) 20 mg 1X ONCE 11/03/17 06:30 11/03/17 06:31 DC 11/03/17 06:52 20 MG Allergies Allergies Allergies Coded Allergies Type Severity Reaction Last Updated Verified No Known Drug Allergies 04/10/16 No Physical Exam Physical Exam Constitutional: Well developed, well nourished, no acute distress, non-toxic appearance. [] HENT: Normocephalic, atraumatic, bilateral external ears normal, oropharynx moist, no oral exudates, nose normal. [] Eyes: PERRLA, EOMI, conjunctiva normal, no discharge. [] Neck: Normal range of motion, no tenderness, supple, no stridor. [] Cardiovascular: Tachycardic no murmur[] Lungs & Thorax: Bilateral breath sounds clear to auscultation [] Abdomen: Bowel sounds normal, soft, no tenderness, no masses, no pulsatile masses. [] Skin: Warm, dry, no erythema, no rash. [] Back: No tenderness, no CVA tenderness. [] Extremities: No tenderness, no cyanosis, no clubbing, ROM intact, no edema. [] Neurologic: Alert and oriented X 3, normal motor function, normal sensory function, no focal deficits noted. [] Psychologic: Affect normal, judgement normal, mood normal. [] Current Patient Data Vital Signs Vital Signs Date Time Temp Pulse Resp B/P (MAP) Pulse Ox O2 Delivery O2 Flow Rate FiO2 11/03/17 06:52 93 171/83 11/03/17 06:25 98.6 15 96 Room Air 98.6 Lab Values Laboratory Tests Test 11/03/17 06:48 White Blood Count 5.7 x10^3/uL (4.0-11.0) Red Blood Count 4.86 x10^6/uL (3.50-5.40) Hemoglobin 13.3 g/dL (12.0-15.5) Hematocrit 39.5 % (36.0-47.0) Mean Corpuscular Volume 81 fL (79-100) Mean Corpuscular Hemoglobin 27 pg (25-35) Mean Corpuscular Hemoglobin Concent 34 g/dL (31-37) Red Cell Distribution Width 14.2 % (11.5-14.5) Platelet Count 278 x10^3/uL (140-400) Neutrophils (%) (Auto) 40 % (31-73) Lymphocytes (%) (Auto) 49 % (24-48) H Monocytes (%) (Auto) 8 % (0-9) Eosinophils (%) (Auto) 2 % (0-3) Basophils (%) (Auto) 1 % (0-3) Neutrophils # (Auto) 2.3 x10^3uL (1.8-7.7) Lymphocytes # (Auto) 2.8 x10^3/uL (1.0-4.8) Monocytes # (Auto) 0.5 x10^3/uL (0.0-1.1) Eosinophils # (Auto) 0.1 x10^3/uL (0.0-0.7) Basophils # (Auto) 0.1 x10^3/uL (0.0-0.2) Sodium Level 135 mmol/L (136-145) L Potassium Level 4.1 mmol/L (3.5-5.1) Chloride Level 97 mmol/L (98-107) L Carbon Dioxide Level 28 mmol/L (21-32) Anion Gap 10 (6-14) Blood Urea Nitrogen 14 mg/dL (7-20) Creatinine 1.2 mg/dL (0.6-1.0) H Estimated GFR (Cockcroft-Gault) 52.2 BUN/Creatinine Ratio 12 (6-20) Glucose Level 132 mg/dL (70-99) H Calcium Level 10.2 mg/dL (8.5-10.1) H Total Bilirubin 0.5 mg/dL (0.2-1.0) Aspartate Amino Transferase (AST) 34 U/L (15-37) Alanine Aminotransferase (ALT) 36 U/L (14-59) Alkaline Phosphatase 96 U/L (46-116) Troponin I Quantitative < 0.017 ng/mL (0.000-0.055) Total Protein 8.9 g/dL (6.4-8.2) H Albumin 4.2 g/dL (3.4-5.0) Albumin/Globulin Ratio 0.9 (1.0-1.7) L Laboratory Tests 11/03/17 06:48 Laboratory Tests 11/03/17 06:48 EKG EKG [EKG: Sinus tachycardia rate of 100 with a right bundle branch block no obvious ischemic ST-T changes] Radiology/Procedures Radiology/Procedures [Chest x-ray is negative as interpreted by me] Course & Med Decision Making Course & Med Decision Making Pertinent Labs and Imaging studies reviewed. (See chart for details) [ED course: Evaluation reveals an 82-year-old female who is in no significant distress but she was tachycardic. She admits that she did not have her beta armin to take at home. She was given 20 mg of labetalol during her stay in the department which did decrease her pulse into the 70s. Also reduced her blood pressure down to 1:30 systolic and patient states she feels much better. I offered the patient admission for further evaluation and workup of her tachycardia but she adamantly refused. She states she'll go home and start taking her medication as directed. At this point, I think this is a perfectly safe option for the patient.] Dragon Disclaimer Dragon Disclaimer This electronic medical record was generated, in whole or in part, using a voice recognition dictation system. Departure Departure Impression: Primary Impression: Tachycardia with hypertension Disposition: HOME, SELF-CARE Condition: IMPROVED Referrals: SHAHEEN MCKEON MD (PCP) Patient Instructions: Hypertension, Nonspecific Tachycardia Additional Instructions: Follow with your primary care physician this week for recheck. Take all your medication as directed. Return to the emergency department with any new or concerning symptoms KVNG POTTER DO Nov 03, 2017 06:58
[2017-11-03 07:04] LABS: BASO # 0.1 x10^3/uL (0.0-0.2); BASO % 1 % (0-3); EOS # 0.1 x10^3/uL (0.0-0.7); EOS % 2 % (0-3); HEMATOCRIT 39.5 % (36.0-47.0); HEMOGLOBIN 13.3 g/dL (12.0-15.5); LYMPH # 2.8 x10^3/uL (1.0-4.8); LYMPH % 49 % (24-48); MEAN CORPUSCULAR HEMOGLOBIN 27 pg (25-35); MEAN CORPUSCULAR HGB CONC 34 g/dL (31-37); MEAN CORPUSCULAR VOLUME 81 fL (79-100); MONO # 0.5 x10^3/uL (0.0-1.1); MONO % 8 % (0-9); NEUT # 2.3 x10^3uL (1.8-7.7); NEUT % 40 % (31-73); PLATELET COUNT 278 x10^3/uL (140-400); RED BLOOD COUNT 4.86 x10^6/uL (3.50-5.40); RED CELL DISTRIBUTION WIDTH 14.2 % (11.5-14.5); WHITE BLOOD COUNT 5.7 x10^3/uL (4.0-11.0)
--- NOTE | 2017-11-03 07:05 | EKG ---
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
[2017-11-03 07:12] LABS: CALCIUM 10.2 mg/dL (8.5-10.1); CREATININE 1.2 mg/dL (0.6-1.0); GFR 52.2
[2017-11-03 07:18] LABS: ALBUMIN 4.2 g/dL (3.4-5.0); ALBUMIN/GLOBULIN RATIO 0.9 (1.0-1.7); TOTAL BILIRUBIN 0.5 mg/dL (0.2-1.0); TOTAL PROTEIN 8.9 g/dL (6.4-8.2)
[2017-11-03 07:25] LABS: POTASSIUM 4.1 mmol/L (3.5-5.1)
--- NOTE | 2017-11-03 07:47 | RAD ---
Portable chest, 11/03/2017: HISTORY: Tachycardia Comparison is made to a study from 04/10/2016. The heart size and pulmonary vascularity are normal. No pulmonary infiltrate is seen. There is no evidence of pleural fluid. IMPRESSION: No acute cardiopulmonary abnormality is detected. Electronically signed by: Andrés Rosario MD (11/03/2017 7:43 AM) [facility]
[2017-11-03 08:00] VITALS: BP 135/68
== END 2017-11-03 08:12 | disposition home or self-care (01) ==
LOC: ER 06:06
DX: I10 Essential (primary) hypertension (principal); R00.0 Tachycardia, unspecified; R00.2 Palpitations; E78.00 Pure hypercholesterolemia, unspecified
CPT/HCPCS: 36415; 71045; 80053; 84484; 85025; 93005; 96374; 99285; J3490

== ENCOUNTER 2020-04-15 16:39 | Inpatient (IN) | payer MEDICARE, OTHER ==
[~2020-04-15] VITALS: Ht 162.6 cm; Wt 94.3 kg
[~2020-04-15 16:39] MED LIST changes: +AMLO-186 PO; -AMLO5TAB7 PO
[2020-04-15] MEDS ORDERED: METOPROLOL IV PUSH 5 MG/5 ML VIAL. IVP ONE (17:15)
--- NOTE | 2020-04-15 17:39 | RAD ---
INDICATION: Reason: HEART PALPATATIONS / Spl. Instructions: / History: COMPARISON: October 2017 FINDINGS: 2 view of chest obtained. Cardiac silhouette is similar to prior. Mild disorganization of the pulmonary markings again seen wit hout a definite new region of consolidation. Degenerative changes of the spine. IMPRESSION: * No focal airspace consolidation or edema. Electronically signed by: Jomar Garcia MD (04/15/2020 5:36 PM) [id number]
[2020-04-15 18:00] LABS: BASO # 0.1 x10^3/uL (0.0-0.2); BASO % 2 % (0-3); EOS # 0.1 x10^3/uL (0.0-0.7); EOS % 2 % (0-3); HEMATOCRIT 35.6 % (36.0-47.0); LYMPH # 2.3 x10^3/uL (1.0-4.8); LYMPH % 43 % (24-48); MEAN CORPUSCULAR HEMOGLOBIN 28 pg (25-35); MEAN CORPUSCULAR HGB CONC 34 g/dL (31-37); MEAN CORPUSCULAR VOLUME 82 fL (79-100); MONO # 0.6 x10^3/uL (0.0-1.1); MONO % 11 % (0-9); NEUT # 2.3 x10^3/uL (1.8-7.7); NEUT % 43 % (31-73); PLATELET COUNT 261 x10^3/uL (140-400); RED BLOOD COUNT 4.34 x10^6/uL (3.50-5.40); RED CELL DISTRIBUTION WIDTH 13.5 % (11.5-14.5); WHITE BLOOD COUNT 5.3 x10^3/uL (4.0-11.0)
--- NOTE | 2020-04-15 18:01 | PHYS DOC ---
Past Medical History Past Medical History: High Cholesterol, Hypertension Past Surgical History: Other Additional Past Surgical Histo: "cancer surgery 27 years ago lymph node rt neck & chemo for 6 months." Smoking Status: Never Smoker Alcohol Use: None Drug Use: None General Adult EDM: Chief Complaint: Palpitations HPI: HPI: Patient is a 84 year old female presents to the emergency department complaining of feeling heart palpitations that started last night and has had them periodically throughout the day. Patient states she had 2 episodes just recently before decided to come to the emergency department. Patient states she feels her heart speed up and beat fast and then it slows back down without any intervention. Patient denies any chest pain, shortness of breath, chest congestion, nasal congestion. Patient denies any dizziness, states she has a slight headache that she attributes to her high blood pressure problems. Patient denies any nausea, vomiting, diarrhea, constipation. Patient denies any rashes of her skin, denies homicidal or suicidal ideation. States she has no known drug allergies, patient states that she takes a cholesterol medication at home but cannot recall the name of it otherwise she takes 2 blood pressure medicines amlodipine 5 mg every morning and metoprolol XL 50 mg every morning. Patient states that she took her medications prior to coming to the emergency department today. Patient denies any other physical complaints or physical concerns. Patient denies having a COVID-19 virus vaccination, states she had a flu shot in 2020. Review of Systems: Review of Systems: 14 body systems of review of systems have been reviewed. See HPI for pertinent positives and negative responses, otherwise all other systems are negative, nonpertinent or noncontributory. Heart Score: HEART Score for Chest Pain: HEART Score for Chest Pain Response (Comments) Value History Slighlty/Non-Suspicious 0 ECG Normal 0 Age > 65 2 Risk Factors 1 or 2 Risk Factors 1 Troponin < Normal Limit 0 Total 3 Risk Factors: Risk Factors: DM, Current or recent (<one month) smoker, HTN, HLP, family history of CAD, obesity. Risk Scores: Score 0 - 3: 2.5% MACE over next 6 weeks - Discharge Home Score 4 - 6: 20.3% MACE over next 6 weeks - Admit for Clinical Observation Score 7 - 10: 72.7% MACE over next 6 weeks - Early Invasive Strategies Current Medications: Current Medications Medications (Trade) Dose Ordered Sig/Comfort Start Time Stop Time Status Last Admin Dose Admin Metoprolol Tartrate (Lopressor Vial) 5 mg 1X ONCE 04/15/20 17:15 04/15/20 17:16 DC Allergies: Allergies: Allergies Coded Allergies Type Severity Reaction Last Updated Verified No Known Drug Allergies 04/10/16 No Physical Exam: PE: Constitutional: Well developed, well nourished, no acute distress, non-toxic appearance. HENT: Normocephalic, atraumatic, bilateral external ears normal, oropharynx moist, no oral exudates, nose normal. Eyes: PERRLA, EOMI, conjunctiva normal, no discharge. Neck: Normal range of motion, no tenderness, supple, no stridor. Cardiovascular:Heart rate regular rhythm, no murmur, heart sounds S1-S2 to auscultation. Lungs & Thorax: Bilateral breath sounds clear to auscultation all lung aguilar. Abdomen: Bowel sounds normal, soft, no tenderness, no masses, no pulsatile masses. Skin: Warm, dry, no erythema, no rash. Back: No tenderness, no CVA tenderness. Extremities: No tenderness, no cyanosis, no clubbing, ROM intact, no edema. Neurologic: Alert and oriented X 3, normal motor function, normal sensory function, no focal deficits noted. Psychologic: Affect normal, judgement normal, mood normal. Current Patient Data: Labs: Laboratory Tests Test 04/15/20 17:40 White Blood Count 5.3 x10^3/uL Red Blood Count 4.34 x10^6/uL Hemoglobin 12.0 g/dL Hematocrit 35.6 % Mean Corpuscular Volume 82 fL Mean Corpuscular Hemoglobin 28 pg Mean Corpuscular Hemoglobin Concent 34 g/dL Red Cell Distribution Width 13.5 % Platelet Count 261 x10^3/uL Neutrophils (%) (Auto) 43 % Lymphocytes (%) (Auto) 43 % Monocytes (%) (Auto) 11 % Eosinophils (%) (Auto) 2 % Basophils (%) (Auto) 2 % Neutrophils # (Auto) 2.3 x10^3/uL Lymphocytes # (Auto) 2.3 x10^3/uL Monocytes # (Auto) 0.6 x10^3/uL Eosinophils # (Auto) 0.1 x10^3/uL Basophils # (Auto) 0.1 x10^3/uL Sodium Level 125 mmol/L Potassium Level 4.0 mmol/L Chloride Level 91 mmol/L Carbon Dioxide Level 25 mmol/L Anion Gap 9 Blood Urea Nitrogen 12 mg/dL Creatinine 1.1 mg/dL Estimated GFR (Cockcroft-Gault) 57.4 BUN/Creatinine Ratio 11 Glucose Level 117 mg/dL Calcium Level 8.8 mg/dL Magnesium Level 1.9 mg/dL Total Bilirubin 0.4 mg/dL Aspartate Amino Transf (AST/SGOT) 22 U/L Alanine Aminotransferase (ALT/SGPT) 26 U/L Alkaline Phosphatase 93 U/L Troponin I Quantitative < 0.017 ng/mL Total Protein 8.0 g/dL Albumin 3.8 g/dL Albumin/Globulin Ratio 0.9 Current Medications Medications (Trade) Dose Ordered Sig/Comfort Route PRN Reason Start Time Stop Time Status Last Admin Dose Admin Metoprolol Tartrate (Lopressor Vial) 5 mg 1X ONCE IVP 04/15/20 17:15 04/15/20 17:16 DC Acetaminophen (Tylenol) 650 mg 1X ONCE PO 04/15/20 18:15 04/15/20 18:16 DC 04/15/20 18:51 Ketorolac Tromethamine (Toradol 15mg Vial) 15 mg 1X ONCE IVP 04/15/20 18:15 04/15/20 18:16 DC 04/15/20 18:51 Sodium Chloride 1,000 ml @ 75 mls/hr 1X ONCE IV 04/15/20 19:30 04/16/20 08:49 Vital Signs: Vital Signs Date Time Temp Pulse Resp B/P (MAP) Pulse Ox O2 Delivery O2 Flow Rate FiO2 04/15/20 16:45 98.4 86 18 208/96 (133) 100 Room Air 98.4 EKG: EKG: EKG performed at 1657 by ED nursing staff shows a normal sinus rhythm without ectopy heart rate 77 bpm, DE interval 0.110, QTc interval 0.511, no acute STEMI, no ACS, no acute ischemia appreciated, EKG interpreted by ED attending physician Dr. Chong. Radiology/Procedures: Radiology/Procedures: [] PATIENT: DARREL RODRIGUEZ ACCOUNT: [id number] : 1935 LOCATION: ER AGE: 84 SEX: F EXAM STATUS: REG ER ORD. PHYSICIAN: HIMA ACUÑA APRN REASON: HEART PALPATATIONS PROCEDURE: CHEST PA & LATERAL INDICATION: Reason: HEART PALPATATIONS / Spl. Instructions: / History: COMPARISON: October 2017 FINDINGS: 2 view of chest obtained. Cardiac silhouette is similar to prior. Mild disorganization of the pulmonary markings again seen without a definite new region of consolidation. Degenerative changes of the spine. IMPRESSION: * No focal airspace consolidation or edema. Electronically signed by: Apolonia Yang MD (04/15/2020 5:36 PM) [id number] DICTATED and SIGNED BY: APOLONIA YANG MD DATE: 04/15/20 [id number] Course & Med Decision Making: Course & Med Decision Making Pertinent Labs and Imaging studies reviewed. (See chart for details) 84-year-old female, vital signs reviewed, presents emergency department complaining of intermittent heart palpitations. Patient's physical examination was unremarkable other than an initial blood pressure of 208/96, patient does report a slight headache when mentioning her blood pressure. Will give 5 mg metoprolol in the emergency department, and initiated cardiopulmonary work-up. Patient's blood pressure on reexamination was 167/76, patient states that her headache was ongoing, still pending cardiac labs, will give 15 mg IV Toradol with 650 mg p.o. Tylenol for headache pains. Patient's cardiopulmonary work-up unremarkable, however patient had marked hyponatremia with sodium 125 and chloride 91, called and discussed case with inpatient [facility] physician Dr. Carpenter who agreed to accept admission to the telemetry unit for the diagnosis of hyponatremia, recommended patient be started on normal saline at 75 cc/h. Discussed admission with patient who is amenable to this plan, patient admitted to telemetry unit, Dr. Carpenter has assumed patient care at this time. Dragon Disclaimer: Dragon Disclaimer: This electronic medical record was generated, in whole or in part, using a voice recognition dictation system. Departure Departure Impression: Primary Impression: Hyponatremia Additional Impression: Heart palpitations Disposition: ADMITTED INPT THIS HOSP Admitting Physician: GOLD (ADMIT TO DR CARPENTER TO THE TELE UNIT) Condition: GUARDED Referrals: TANI GARG MD (PCP) HIMA ACUÑA APRN Apr 15, 2020 18:00
--- NOTE | 2020-04-15 18:07 | EKG ---
[facility] [address] [place] [address] Test Date: 2020-04-15 Test Time: 16:57:20 Pat Name: DARREL RODRIGUEZ Department: Room: Gender: F Transportation Coordinator: : 1935 Requested By: HIMA ACUÑA Order Number: [id number] Reading MD: Measurements Intervals [place] Rate: 77 P: -84 FL: 110 QRS: -48 QRSD: 136 T: 28 QT: 450 QTc: 511 Interpretive Statements SINUS RHYTHM ABNORMAL LEFT AXIS DEVIATION LEFT ANTERIOR FASCICULAR BLOCK NON SPECIFIC INTRAVENTRICULAR BLOCK ABNORMAL ECG RI6.02 No previous ECG available for comparison
[2020-04-15 18:13] LABS: CALCIUM 8.8 mg/dL (8.5-10.1); CREATININE 1.1 mg/dL (0.6-1.0); GFR 57.4
[2020-04-15] MEDS ORDERED: KETOROLAC 15 MG/ML VIAL. IVP ONE (18:15)
[2020-04-15] MEDS ORDERED: ACETAMINOPHEN 325 MG TABLET. PO ONE (18:15)
[2020-04-15 18:19] LABS: ALBUMIN 3.8 g/dL (3.4-5.0); ALBUMIN/GLOBULIN RATIO 0.9 (1.0-1.7); MAGNESIUM 1.9 mg/dL (1.8-2.4); TOTAL BILIRUBIN 0.4 mg/dL (0.2-1.0)
[2020-04-15] MEDS ORDERED: IV NORMAL SALINE 1000ML BAG 1,000 ML IV ONE (19:30)
--- NOTE | 2020-04-15 21:19 | HP ---
ADMIT DATE: 04/15/2020 CHIEF COMPLAINT: Palpitations. HISTORY OF PRESENT ILLNESS: The patient is a pleasant 84-year-old female who presented to the ER with palpitations that started last night and these have been intermittent. She has increased her home meds, but that did not seem to help. Then she started drinking 8 glasses of water a day that does not seem to have helped her either. While in the ER, we noted that her sodium level was low. 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 We are going to admit the patient and give her some saline. PAST MEDICAL HISTORY: Hypertension, hyperlipidemia. 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 ALLERGIES: None. FAMILY HISTORY: Diabetes. SOCIAL HISTORY: She does not drink, smoke or take drugs. MEDICATIONS: Reviewed, please refer to the MRAD. REVIEW OF SYSTEMS: GENERAL: No history of weight change, weakness or fevers. SKIN: No bruising, hair changes or rashes. EYES: No blurred, double or loss of vision. NOSE AND THROAT: No history of nosebleeds, hoarseness or sore throat. HEART: She complains of palpitations. No chest pain or shortness of breath on exertion. LUNGS: Denies cough, hemoptysis, wheezing or shortness of breath. GASTROINTESTINAL: Denies changes in appetite, nausea, vomiting, diarrhea or constipation. GENITOURINARY: No history of frequency, urgency, hesitancy or nocturia. NEUROLOGIC: Denies history of numbness, tingling, tremor or weakness. PSYCHIATRIC: No history of panic, anxiety or depression. ENDOCRINE: No history of heat or cold intolerance, polyuria or polydipsia. EXTREMITIES: Denies muscle weakness, joint pain, pain on walking or stiffness. PHYSICAL EXAMINATION: VITALS: Within normal limits and are stable. GENERAL: No apparent distress. Alert and oriented. HEENT: Normal cephalic atraumatic, external auditory canals are patent EYES: Extraocular muscles are intact, pupils are equally round and reactive to light and accommodation MUSCULOSKELETAL: Well developed, well nourished, good range of motion ENDOCRINE: No thyromegaly was palpated LYMPHATICS: No cervical chain or axillary nodes were noted HEMATOPOIETIC: No bruising NECK: Supple, no JVD, no thyromegaly was noted. LUNGS: Clear to auscultation in all lung aguilar without rhonchi or wheezing. HEART: RRR, S1, S2 present. Peripheral pulses intact, no obvious murmurs were noted. ABDOMEN: Soft, nontender. Positive bowel sounds no organomegaly, normal bowel sounds. EXTREMITIES: Without any cyanosis, clubbing, or edema. Pedal pulses intact, Homans sign is negative. NEUROLOGIC: Normal speech, normal tone. A & O x3, moves all extremities, no obvious focal deficits. PSYCHIATRIC: Normal affect, normal mood. Stable. SKIN: No ulcerations or rashes, good skin turgor, no jaundice. VASCULAR: Good capillary refill, neurovascular bundle appears to be intact. LABORATORY DATA: White count is 5. Sodium is 125. ASSESSMENT AND PLAN: Hyponatremia and palpitations. Suspect she has been drinking too much water. She states that she thought she was supposed to drink lots of water. I told her not to drink so much. For now, we are going to give her normal saline 75 an hour and recheck her labs in the morning. Home meds, DVT prophylaxis. Full code. NATHANIEL MERAZ DO DR: ENEDINA/bro JOB#: [id number] / [id number]
[2020-04-15 22:00] VITALS: BP 175/72
[2020-04-15] MEDS ORDERED: ACETAMINOPHEN 325 MG TABLET. PO PRN (23:45)
--- NOTE | 2020-04-15 23:46 | NUR ---
Patient arrived via gurney. Verified patients medications. Patient is ambulatory and from home. Patient denies any palpitations at admission.
[2020-04-16 03:12] VITALS: BP 122/55
[2020-04-16 04:58] LABS: BASO % 1 % (0-3); EOS # 0.1 x10^3/uL (0.0-0.7); EOS % 2 % (0-3); HEMATOCRIT 31.8 % (36.0-47.0); HEMOGLOBIN 10.8 g/dL (12.0-15.5); LYMPH # 2.2 x10^3/uL (1.0-4.8); LYMPH % 48 % (24-48); MEAN CORPUSCULAR HEMOGLOBIN 28 pg (25-35); MEAN CORPUSCULAR HGB CONC 34 g/dL (31-37); MEAN CORPUSCULAR VOLUME 82 fL (79-100); MONO # 0.6 x10^3/uL (0.0-1.1); MONO % 13 % (0-9); NEUT # 1.7 x10^3/uL (1.8-7.7); NEUT % 36 % (31-73); PLATELET COUNT 230 x10^3/uL (140-400); RED BLOOD COUNT 3.89 x10^6/uL (3.50-5.40); RED CELL DISTRIBUTION WIDTH 13.7 % (11.5-14.5); WHITE BLOOD COUNT 4.6 x10^3/uL (4.0-11.0)
[2020-04-16 05:15] LABS: ALBUMIN 3.3 g/dL (3.4-5.0); ALBUMIN/GLOBULIN RATIO 0.9 (1.0-1.7); CALCIUM 8.5 mg/dL (8.5-10.1); CREATININE 1.2 mg/dL (0.6-1.0); GFR 51.9; POTASSIUM 3.4 mmol/L (3.5-5.1); TOTAL BILIRUBIN 0.4 mg/dL (0.2-1.0); TOTAL PROTEIN 6.9 g/dL (6.4-8.2)
[2020-04-16 07:00] VITALS: BP 147/69
--- NOTE | 2020-04-16 08:21 | PDOC ---
PROGRESS NOTES Date of Service: DATE: 04/16/20 TIME: 08:20 Chief Complaint Chief Complaint ASSESSMENT AND PLAN: Hyponatremia , volume overload palpitations. polydypsia hypokalemia plan cvc bed fluid restrict 1800 cc/ 24 hrs normal saline 75 an hour stop Home meds, DVT prophylaxis. Full code. urinary spot sodium D/C HOME TODAY BY PATIENT REQUEST, MODERATE RISK OF COMPLICATIONS PT refusing additional tests wants to go home no matter what today, refused echo ama, INSISTS ON D/C TODAY History of Present Illness History of Present Illness CHIEF COMPLAINT: Palpitations., low sodium HISTORY OF PRESENT ILLNESS: The patient is a pleasant 84-year-old female who presented to the ER with palpitations that started last night and these have been intermittent. She has increased her home meds, but that did not seem to help. Then she started drinking 8 glasses of water a day that does not seem to have helped her either. While in the ER, we noted that her sodium level was low. 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 We are going to admit the patient and give her some saline. PAST MEDICAL HISTORY: Hypertension, hyperlipidemia. 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 ALLERGIES: None. FAMILY HISTORY: Diabetes. SOCIAL HISTORY: She does not drink, smoke or take drugs. MEDICATIONS: Reviewed, please refer to the MRAD. REVIEW OF SYSTEMS: GENERAL: No history of weight change, weakness or fevers. SKIN: No bruising, hair changes or rashes. EYES: No blurred, double or loss of vision. NOSE AND THROAT: No history of nosebleeds, hoarseness or sore throat. HEART: She complains of palpitations. No chest pain or shortness of breath on exertion. LUNGS: Denies cough, hemoptysis, wheezing or shortness of breath. GASTROINTESTINAL: Denies changes in appetite, nausea, vomiting, diarrhea or constipation. GENITOURINARY: No history of frequency, urgency, hesitancy or nocturia. NEUROLOGIC: Denies history of numbness, tingling, tremor or weakness. PSYCHIATRIC: No history of panic, anxiety or depression. ENDOCRINE: No history of heat or cold intolerance, polyuria or polydipsia. EXTREMITIES: Denies muscle weakness, joint pain, pain on walking or stiffness. Vitals Vitals Vital Signs Date Time Temp Pulse Resp B/P (MAP) Pulse Ox O2 Delivery O2 Flow Rate FiO2 04/16/20 03:12 98.2 69 18 122/55 (77) 97 Room Air 98.2 Physical Exam Physical Exam PHYSICAL EXAMINATION: VITALS: Within normal limits and are stable. GENERAL: No apparent distress. Alert and oriented. HEENT: Normal cephalic atraumatic, external auditory canals are patent EYES: Extraocular muscles are intact, pupils are equally round and reactive to light and accommodation MUSCULOSKELETAL: Well developed, well nourished, good range of motion ENDOCRINE: No thyromegaly was palpated LYMPHATICS: No cervical chain or axillary nodes were noted HEMATOPOIETIC: No bruising NECK: Supple, no JVD, no thyromegaly was noted. LUNGS: Clear to auscultation in all lung aguilar without rhonchi or wheezing. HEART: RRR, S1, S2 present. Peripheral pulses intact, no obvious murmurs were noted. ABDOMEN: Soft, nontender. Positive bowel sounds no organomegaly, normal bowel sounds. EXTREMITIES: Without any cyanosis, clubbing, or edema. Pedal pulses intact, Homans sign is negative. NEUROLOGIC: Normal speech, normal tone. A & O x3, moves all extremities, no obvious focal deficits. PSYCHIATRIC: Normal affect, normal mood. Stable. SKIN: No ulcerations or rashes, good skin turgor, no jaundice. VASCULAR: Good capillary refill, neurovascular bundle appears to be intact. General: Alert, Oriented X3, Cooperative Heart: Regular rate Abdomen: Normal bowel sounds, Soft, No tenderness Extremities: No clubbing, No cyanosis, Normal pulses Skin: No significant lesion Labs LABS INDICATION: Reason: HEART PALPATATIONS / Spl. Instructions: / History: COMPARISON: October 2017 FINDINGS: 2 view of chest obtained. Cardiac silhouette is similar to prior. Mild disorganization of the pulmonary markings again seen without a definite new region of consolidation. Degenerative changes of the spine. IMPRESSION: * No focal airspace consolidation or edema. Electronically signed by: Apolonia Garcia MD (04/15/2020 5:36 PM) [id number] DICTATED and SIGNED BY: APOLONIA GARCIA MD DATE: 04/15/20 [id number] Laboratory Tests Test 04/15/20 17:40 04/16/20 03:55 White Blood Count 5.3 x10^3/uL (4.0-11.0) 4.6 x10^3/uL (4.0-11.0) Red Blood Count 4.34 x10^6/uL (3.50-5.40) 3.89 x10^6/uL (3.50-5.40) Hemoglobin 12.0 g/dL (12.0-15.5) 10.8 g/dL (12.0-15.5) Hematocrit 35.6 % (36.0-47.0) 31.8 % (36.0-47.0) Mean Corpuscular Volume 82 fL (79-100) 82 fL (79-100) Mean Corpuscular Hemoglobin 28 pg (25-35) 28 pg (25-35) Mean Corpuscular Hemoglobin Concent 34 g/dL (31-37) 34 g/dL (31-37) Red Cell Distribution Width 13.5 % (11.5-14.5) 13.7 % (11.5-14.5) Platelet Count 261 x10^3/uL (140-400) 230 x10^3/uL (140-400) Neutrophils (%) (Auto) 43 % (31-73) 36 % (31-73) Lymphocytes (%) (Auto) 43 % (24-48) 48 % (24-48) Monocytes (%) (Auto) 11 % (0-9) 13 % (0-9) Eosinophils (%) (Auto) 2 % (0-3) 2 % (0-3) Basophils (%) (Auto) 2 % (0-3) 1 % (0-3) Neutrophils # (Auto) 2.3 x10^3/uL (1.8-7.7) 1.7 x10^3/uL (1.8-7.7) Lymphocytes # (Auto) 2.3 x10^3/uL (1.0-4.8) 2.2 x10^3/uL (1.0-4.8) Monocytes # (Auto) 0.6 x10^3/uL (0.0-1.1) 0.6 x10^3/uL (0.0-1.1) Eosinophils # (Auto) 0.1 x10^3/uL (0.0-0.7) 0.1 x10^3/uL (0.0-0.7) Basophils # (Auto) 0.1 x10^3/uL (0.0-0.2) 0.0 x10^3/uL (0.0-0.2) Sodium Level 125 mmol/L (136-145) 127 mmol/L (136-145) Potassium Level 4.0 mmol/L (3.5-5.1) 3.4 mmol/L (3.5-5.1) Chloride Level 91 mmol/L (98-107) 93 mmol/L (98-107) Carbon Dioxide Level 25 mmol/L (21-32) 26 mmol/L (21-32) Anion Gap 9 (6-14) 8 (6-14) Blood Urea Nitrogen 12 mg/dL (7-20) 13 mg/dL (7-20) Creatinine 1.1 mg/dL (0.6-1.0) 1.2 mg/dL (0.6-1.0) Estimated GFR (Cockcroft-Gault) 57.4 51.9 BUN/Creatinine Ratio 11 (6-20) 11 (6-20) Glucose Level 117 mg/dL (70-99) 97 mg/dL (70-99) Calcium Level 8.8 mg/dL (8.5-10.1) 8.5 mg/dL (8.5-10.1) Magnesium Level 1.9 mg/dL (1.8-2.4) Total Bilirubin 0.4 mg/dL (0.2-1.0) 0.4 mg/dL (0.2-1.0) Aspartate Amino Transf (AST/SGOT) 22 U/L (15-37) 15 U/L (15-37) Alanine Aminotransferase (ALT/SGPT) 26 U/L (14-59) 24 U/L (14-59) Alkaline Phosphatase 93 U/L (46-116) 80 U/L (46-116) Troponin I Quantitative < 0.017 ng/mL (0.000-0.055) Total Protein 8.0 g/dL (6.4-8.2) 6.9 g/dL (6.4-8.2) Albumin 3.8 g/dL (3.4-5.0) 3.3 g/dL (3.4-5.0) Albumin/Globulin Ratio 0.9 (1.0-1.7) 0.9 (1.0-1.7) Assessment and Plan Assessmemt and Plan Problems Medical Problems: (1) Hyponatremia Status: Acute Comment Review of Relevant I have reviewed the following items grant (where applicable) has been applied. Labs Laboratory Tests Test 04/15/20 17:40 04/16/20 03:55 White Blood Count 5.3 x10^3/uL (4.0-11.0) 4.6 x10^3/uL (4.0-11.0) Red Blood Count 4.34 x10^6/uL (3.50-5.40) 3.89 x10^6/uL (3.50-5.40) Hemoglobin 12.0 g/dL (12.0-15.5) 10.8 g/dL (12.0-15.5) Hematocrit 35.6 % (36.0-47.0) 31.8 % (36.0-47.0) Mean Corpuscular Volume 82 fL (79-100) 82 fL (79-100) Mean Corpuscular Hemoglobin 28 pg (25-35) 28 pg (25-35) Mean Corpuscular Hemoglobin Concent 34 g/dL (31-37) 34 g/dL (31-37) Red Cell Distribution Width 13.5 % (11.5-14.5) 13.7 % (11.5-14.5) Platelet Count 261 x10^3/uL (140-400) 230 x10^3/uL (140-400) Neutrophils (%) (Auto) 43 % (31-73) 36 % (31-73) Lymphocytes (%) (Auto) 43 % (24-48) 48 % (24-48) Monocytes (%) (Auto) 11 % (0-9) 13 % (0-9) Eosinophils (%) (Auto) 2 % (0-3) 2 % (0-3) Basophils (%) (Auto) 2 % (0-3) 1 % (0-3) Neutrophils # (Auto) 2.3 x10^3/uL (1.8-7.7) 1.7 x10^3/uL (1.8-7.7) Lymphocytes # (Auto) 2.3 x10^3/uL (1.0-4.8) 2.2 x10^3/uL (1.0-4.8) Monocytes # (Auto) 0.6 x10^3/uL (0.0-1.1) 0.6 x10^3/uL (0.0-1.1) Eosinophils # (Auto) 0.1 x10^3/uL (0.0-0.7) 0.1 x10^3/uL (0.0-0.7) Basophils # (Auto) 0.1 x10^3/uL (0.0-0.2) 0.0 x10^3/uL (0.0-0.2) Sodium Level 125 mmol/L (136-145) 127 mmol/L (136-145) Potassium Level 4.0 mmol/L (3.5-5.1) 3.4 mmol/L (3.5-5.1) Chloride Level 91 mmol/L (98-107) 93 mmol/L (98-107) Carbon Dioxide Level 25 mmol/L (21-32) 26 mmol/L (21-32) Anion Gap 9 (6-14) 8 (6-14) Blood Urea Nitrogen 12 mg/dL (7-20) 13 mg/dL (7-20) Creatinine 1.1 mg/dL (0.6-1.0) 1.2 mg/dL (0.6-1.0) Estimated GFR (Cockcroft-Gault) 57.4 51.9 BUN/Creatinine Ratio 11 (6-20) 11 (6-20) Glucose Level 117 mg/dL (70-99) 97 mg/dL (70-99) Calcium Level 8.8 mg/dL (8.5-10.1) 8.5 mg/dL (8.5-10.1) Magnesium Level 1.9 mg/dL (1.8-2.4) Total Bilirubin 0.4 mg/dL (0.2-1.0) 0.4 mg/dL (0.2-1.0) Aspartate Amino Transf (AST/SGOT) 22 U/L (15-37) 15 U/L (15-37) Alanine Aminotransferase (ALT/SGPT) 26 U/L (14-59) 24 U/L (14-59) Alkaline Phosphatase 93 U/L (46-116) 80 U/L (46-116) Troponin I Quantitative < 0.017 ng/mL (0.000-0.055) Total Protein 8.0 g/dL (6.4-8.2) 6.9 g/dL (6.4-8.2) Albumin 3.8 g/dL (3.4-5.0) 3.3 g/dL (3.4-5.0) Albumin/Globulin Ratio 0.9 (1.0-1.7) 0.9 (1.0-1.7) Laboratory Tests Test 04/15/20 17:40 04/16/20 03:55 White Blood Count 5.3 x10^3/uL (4.0-11.0) 4.6 x10^3/uL (4.0-11.0) Red Blood Count 4.34 x10^6/uL (3.50-5.40) 3.89 x10^6/uL (3.50-5.40) Hemoglobin 12.0 g/dL (12.0-15.5) 10.8 g/dL (12.0-15.5) Hematocrit 35.6 % (36.0-47.0) 31.8 % (36.0-47.0) Mean Corpuscular Volume 82 fL (79-100) 82 fL (79-100) Mean Corpuscular Hemoglobin 28 pg (25-35) 28 pg (25-35) Mean Corpuscular Hemoglobin Concent 34 g/dL (31-37) 34 g/dL (31-37) Red Cell Distribution Width 13.5 % (11.5-14.5) 13.7 % (11.5-14.5) Platelet Count 261 x10^3/uL (140-400) 230 x10^3/uL (140-400) Neutrophils (%) (Auto) 43 % (31-73) 36 % (31-73) Lymphocytes (%) (Auto) 43 % (24-48) 48 % (24-48) Monocytes (%) (Auto) 11 % (0-9) 13 % (0-9) Eosinophils (%) (Auto) 2 % (0-3) 2 % (0-3) Basophils (%) (Auto) 2 % (0-3) 1 % (0-3) Neutrophils # (Auto) 2.3 x10^3/uL (1.8-7.7) 1.7 x10^3/uL (1.8-7.7) Lymphocytes # (Auto) 2.3 x10^3/uL (1.0-4.8) 2.2 x10^3/uL (1.0-4.8) Monocytes # (Auto) 0.6 x10^3/uL (0.0-1.1) 0.6 x10^3/uL (0.0-1.1) Eosinophils # (Auto) 0.1 x10^3/uL (0.0-0.7) 0.1 x10^3/uL (0.0-0.7) Basophils # (Auto) 0.1 x10^3/uL (0.0-0.2) 0.0 x10^3/uL (0.0-0.2) Sodium Level 125 mmol/L (136-145) 127 mmol/L (136-145) Potassium Level 4.0 mmol/L (3.5-5.1) 3.4 mmol/L (3.5-5.1) Chloride Level 91 mmol/L (98-107) 93 mmol/L (98-107) Carbon Dioxide Level 25 mmol/L (21-32) 26 mmol/L (21-32) Anion Gap 9 (6-14) 8 (6-14) Blood Urea Nitrogen 12 mg/dL (7-20) 13 mg/dL (7-20) Creatinine 1.1 mg/dL (0.6-1.0) 1.2 mg/dL (0.6-1.0) Estimated GFR (Cockcroft-Gault) 57.4 51.9 BUN/Creatinine Ratio 11 (6-20) 11 (6-20) Glucose Level 117 mg/dL (70-99) 97 mg/dL (70-99) Calcium Level 8.8 mg/dL (8.5-10.1) 8.5 mg/dL (8.5-10.1) Magnesium Level 1.9 mg/dL (1.8-2.4) Total Bilirubin 0.4 mg/dL (0.2-1.0) 0.4 mg/dL (0.2-1.0) Aspartate Amino Transf (AST/SGOT) 22 U/L (15-37) 15 U/L (15-37) Alanine Aminotransferase (ALT/SGPT) 26 U/L (14-59) 24 U/L (14-59) Alkaline Phosphatase 93 U/L (46-116) 80 U/L (46-116) Troponin I Quantitative < 0.017 ng/mL (0.000-0.055) Total Protein 8.0 g/dL (6.4-8.2) 6.9 g/dL (6.4-8.2) Albumin 3.8 g/dL (3.4-5.0) 3.3 g/dL (3.4-5.0) Albumin/Globulin Ratio 0.9 (1.0-1.7) 0.9 (1.0-1.7) Medications Current Medications Metoprolol Tartrate (Lopressor Vial) 5 mg 1X ONCE IVP ; Start 04/15/20 at 17:15; Stop 04/15/20 at 17:16; Status DC Acetaminophen (Tylenol) 650 mg 1X ONCE PO Last administered on 04/15/20at 18:51; Start 04/15/20 at 18:15; Stop 04/15/20 at 18:16; Status DC Ketorolac Tromethamine (Toradol 15mg Vial) 15 mg 1X ONCE IVP Last administered on 04/15/20at 18:51; Start 04/15/20 at 18:15; Stop 04/15/20 at 18:16; Status DC Sodium Chloride 1,000 ml @ 75 mls/hr 1X ONCE IV Last administered on 04/15/20at 20:46; Start 04/15/20 at 19:30; Stop 04/16/20 at 08:49 Sodium Chloride 1,000 ml @ 75 mls/hr [id number] IV ; Start 04/16/20 at 09:00 Amlodipine Besylate (Norvasc) 5 mg DAILY PO ; Start 04/16/20 at 09:00 Metoprolol Succinate (Toprol Xl) 50 mg DAILY PO ; Start 04/16/20 at 09:00 Acetaminophen (Tylenol) 650 mg PRN Q6HRS PRN PO MILD PAIN / TEMP > 100.3'F Last administered on 04/16/20at 00:00; Start 04/15/20 at 23:45 Active Scripts Active Reported Toprol Xl (Metoprolol Succinate) 50 Mg Tab.er.24h 1 Tab PO DAILY Amlodipine Besylate 5 Mg Tablet 5 Mg PO DAILY Vitals/I & O Vital Sign - Last 24 Hours 04/15/20 04/15/20 04/15/20 04/15/20 16:45 17:00 17:30 18:00 Temp 98.4 98.4 Pulse 86 84 75 63 Resp 18 B/P (MAP) 208/96 (133) 208/96 (133) 175/84 (114) 161/72 (101) Pulse Ox 100 100 100 99 O2 Delivery Room Air Room Air Room Air Room Air 04/15/20 04/15/20 04/15/20 04/15/20 18:30 19:00 20:30 22:00 Temp 98.0 98.0 Pulse 64 62 62 62 Resp 16 B/P (MAP) 153/72 (99) 176/78 (110) 146/69 (94) 175/72 (106) Pulse Ox 99 99 99 97 O2 Delivery Room Air Room Air Room Air Room Air 04/15/20 04/16/20 22:10 03:12 Temp 98.2 98.2 Pulse 69 Resp 18 B/P (MAP) 122/55 (77) Pulse Ox 97 O2 Delivery Room Air Room Air Intake and Output 04/15/20 04/15/20 04/16/20 15:00 23:00 07:00 Intake Total 300 ml 0 ml Output Total 400 ml Balance -100 ml 0 ml Justicifation of Admission Dx: Justifications for Admission: Justification of Admission Dx: No JUNAID ALFORD MD Apr 16, 2020 08:21
[2020-04-16] MEDS ORDERED: TRIA1TAB5 PO (08:24)
[2020-04-16] MEDS ORDERED: IV NORMAL SALINE 1000ML BAG 1,000 ML IV SCH (09:00)
[2020-04-16] MEDS ORDERED: amLODIPine BESYLATE 5 MG TABLET PO SCH (09:00)
[2020-04-16] MEDS ORDERED: METOPROLOL SUCC 24HR ER 50 MG TAB.ER.24H. PO SCH (09:00)
[2020-04-16] MEDS ORDERED: POTASSIUM CHLORIDE 20 MEQ TABLET.ER. PO ONE (09:45)
[2020-04-16] MEDS ORDERED: POTASSIUM CHLORIDE 10 MEQ TABLET.ER. PO ONE (09:45)
[2020-04-16 10:00] VITALS: BP 155/69
--- NOTE | 2020-04-16 13:06 | PDOC2 ---
CARDIAC CONSULT DATE OF CONSULT Date of Consult DATE: 04/16/20 TIME: 12:42 REASON FOR CONSULT Reason for Consult: Palpitations REFERRING PHYSICIAN Referring Physician: Pauline SOURCE Source: Chart review, Patient HISTORY OF PRESENT ILLNESS HISTORY OF PRESENT ILLNESS This is a pleasant 84 yo female admitted for complains of palpitations. Reports that this started yesterday felt like her heart was racing and then also slows down. No dizziness and no chest pain. Denies any SOA. No n/v/d. Denies any fever or chills and no covid-19 symptoms nor any recent exposure. 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 She takes maxid and toprol at home and takes cholesterol med also. No hx of VTE, arrhythmias nor CAD. No smoking or recreational drug use and no excessive caffeine use. 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) Hepatobiliary: No pertinent hx Psych: No pertinent hx Musculoskeletal: Osteoarthritis Rheumatologic: No pertinent hx Infectious disease: No pertinent hx ENT: No pertinent hx Renal/: No pertinent hx Endocrine: No pertinent hx Dermatology: No pertinent hx PAST SURGICAL HISTORY Past Surgical History neck lymphoma removal FAMILY HISTORY Family History noncontributory to CV SOCIAL HISTORY Smoke: No ALCOHOL: occassional Drugs: None Lives: with Family CURRENT MEDICATIONS CURRENT MEDICATIONS Current Medications Medications (Trade) Dose Ordered Sig/Comfort Route PRN Reason Start Time Stop Time Status Last Admin Dose Admin Acetaminophen (Tylenol) 650 mg 1X ONCE PO 04/15/20 18:15 04/15/20 18:16 DC 04/15/20 18:51 Ketorolac Tromethamine (Toradol 15mg Vial) 15 mg 1X ONCE IVP 04/15/20 18:15 04/15/20 18:16 DC 04/15/20 18:51 Sodium Chloride 1,000 ml @ 75 mls/hr 1X ONCE IV 04/15/20 19:30 04/16/20 08:49 DC 04/15/20 20:46 Amlodipine Besylate (Norvasc) 5 mg DAILY PO 04/16/20 09:00 04/16/20 08:28 DC 04/16/20 08:18 Metoprolol Succinate (Toprol Xl) 50 mg DAILY PO 04/16/20 09:00 04/16/20 08:18 Acetaminophen (Tylenol) 650 mg PRN Q6HRS PRN PO MILD PAIN / TEMP > 100.3'F 04/15/20 23:45 04/16/20 00:00 Potassium Chloride (Klor-Con) 20 meq 1X ONCE PO 04/16/20 09:45 04/16/20 09:46 DC 04/16/20 10:51 Potassium Chloride (Klor-Con) 10 meq 1X ONCE PO 04/16/20 09:45 04/16/20 09:46 DC 04/16/20 10:51 ALLERGIES ALLERGIES: Coded Allergies: No Known Drug Allergies (Unverified , 04/10/16) ROS Review of System 14 point ROS evaluated with pertinent positives noted per HPI PHYSICAL EXAM General: Alert, Oriented X3, Cooperative, No acute distress HEENT: Atraumatic, Mucous membr. moist/pink Lungs: Clear to auscultation, Normal air movement Heart: Regular rate (SR), Normal S1, Normal S2, No murmurs Abdomen: Soft, No tenderness, Other (obese) Extremities: No cyanosis, Other (trace LE edema) Skin: No breakdown, No significant lesion Neuro: Normal speech, Sensation intact Psych/Mental Status: Mental status NL, Mood NL MUSCULOSKELETAL: Osteoarthritic changes both hands VITALS/I&O VITALS/I&O: Vital Signs Date Time Temp Pulse Resp B/P (MAP) Pulse Ox O2 Delivery O2 Flow Rate FiO2 04/16/20 10:00 97.8 71 18 155/69 (97) 98 Room Air 97.8 I & O 04/15/20 04/15/20 04/16/20 15:00 23:00 07:00 Intake Total 300 ml 0 ml Output Total 400 ml Balance -100 ml 0 ml LABS Lab: Laboratory Tests Test 04/15/20 17:40 04/16/20 03:55 White Blood Count 5.3 x10^3/uL (4.0-11.0) 4.6 x10^3/uL (4.0-11.0) Red Blood Count 4.34 x10^6/uL (3.50-5.40) 3.89 x10^6/uL (3.50-5.40) Hemoglobin 12.0 g/dL (12.0-15.5) 10.8 g/dL (12.0-15.5) L Hematocrit 35.6 % (36.0-47.0) L 31.8 % (36.0-47.0) L Mean Corpuscular Volume 82 fL (79-100) 82 fL (79-100) Mean Corpuscular Hemoglobin 28 pg (25-35) 28 pg (25-35) Mean Corpuscular Hemoglobin Concent 34 g/dL (31-37) 34 g/dL (31-37) Red Cell Distribution Width 13.5 % (11.5-14.5) 13.7 % (11.5-14.5) Platelet Count 261 x10^3/uL (140-400) 230 x10^3/uL (140-400) Neutrophils (%) (Auto) 43 % (31-73) 36 % (31-73) Lymphocytes (%) (Auto) 43 % (24-48) 48 % (24-48) Monocytes (%) (Auto) 11 % (0-9) H 13 % (0-9) H Eosinophils (%) (Auto) 2 % (0-3) 2 % (0-3) Basophils (%) (Auto) 2 % (0-3) 1 % (0-3) Neutrophils # (Auto) 2.3 x10^3/uL (1.8-7.7) 1.7 x10^3/uL (1.8-7.7) L Lymphocytes # (Auto) 2.3 x10^3/uL (1.0-4.8) 2.2 x10^3/uL (1.0-4.8) Monocytes # (Auto) 0.6 x10^3/uL (0.0-1.1) 0.6 x10^3/uL (0.0-1.1) Eosinophils # (Auto) 0.1 x10^3/uL (0.0-0.7) 0.1 x10^3/uL (0.0-0.7) Basophils # (Auto) 0.1 x10^3/uL (0.0-0.2) 0.0 x10^3/uL (0.0-0.2) Sodium Level 125 mmol/L (136-145) L 127 mmol/L (136-145) L Potassium Level 4.0 mmol/L (3.5-5.1) 3.4 mmol/L (3.5-5.1) L Chloride Level 91 mmol/L (98-107) L 93 mmol/L (98-107) L Carbon Dioxide Level 25 mmol/L (21-32) 26 mmol/L (21-32) Anion Gap 9 (6-14) 8 (6-14) Blood Urea Nitrogen 12 mg/dL (7-20) 13 mg/dL (7-20) Creatinine 1.1 mg/dL (0.6-1.0) H 1.2 mg/dL (0.6-1.0) H Estimated GFR (Cockcroft-Gault) 57.4 51.9 BUN/Creatinine Ratio 11 (6-20) 11 (6-20) Glucose Level 117 mg/dL (70-99) H 97 mg/dL (70-99) Calcium Level 8.8 mg/dL (8.5-10.1) 8.5 mg/dL (8.5-10.1) Magnesium Level 1.9 mg/dL (1.8-2.4) Total Bilirubin 0.4 mg/dL (0.2-1.0) 0.4 mg/dL (0.2-1.0) Aspartate Amino Transferase (AST) 22 U/L (15-37) 15 U/L (15-37) Alanine Aminotransferase (ALT) 26 U/L (14-59) 24 U/L (14-59) Alkaline Phosphatase 93 U/L (46-116) 80 U/L (46-116) Troponin I Quantitative < 0.017 ng/mL (0.000-0.055) Total Protein 8.0 g/dL (6.4-8.2) 6.9 g/dL (6.4-8.2) Albumin 3.8 g/dL (3.4-5.0) 3.3 g/dL (3.4-5.0) L Albumin/Globulin Ratio 0.9 (1.0-1.7) L 0.9 (1.0-1.7) L Laboratory Tests 04/15/20 17:40 04/16/20 03:55 Laboratory Tests 04/15/20 17:40 04/16/20 03:55 ECHOCARDIOGRAM ECHOCARDIOGRAM <Conclusion> The left ventricular systolic function is normal and the ejection fraction is within normal range. The Ejection Fraction is 60-65%. There is normal LV segmental wall motion. There is mild concentric left ventricular hypertrophy. DATE: 04/10/16 1712 STRESS TEST STRESS TEST Conclusion 1. Baseline abnormal EKG but no EKG evidence of stress-induced ischemia. 2. Nuclear imaging shows no reversible ischemia or infarct. 3. Normal left ventricular systolic function with an ejection fraction of greater than 70%. 4. Low to moderately low risk Lexiscan nuclear stress test. DATE: 04/12/16 1208 ASSESSMENT/PLAN ASSESSMENT/PLAN 1. Palpitations 2. Asymptomatic SB: lowest in the 40s 3. Hyponatremia and hypokalemia: likely due to maxide 4. HTN urgency: better controlled 5. HLP 6. Prolonged QTc 7. Obesity 8. Chronic RBBB with LAFB Recommendations 1. DC maxide. Decrease toprol to 25 mg Start on norvasc. HBPM bid for 1 week and to call if outside parameters 2. Caution with QT prolonging agents 3. Follow up May 23 2:15 PM 4. MCOT 5. TTE and BMP prior to DC. TSH and FLP ALISTAIR VASQUEZ APRN Apr 16, 2020 13:06
[2020-04-16 13:41] LABS: CHOLESTEROL/HDL RATIO 5.2
--- NOTE | 2020-04-16 14:15 | NUR ---
SS following for discharge planning. SS reviewed pt chart and discussed with pt RN. Pt is from home and is currently on room air. SS will continue to follow for discharge planning.
--- NOTE | 2020-04-16 14:34 | PDOC3 ---
Discharge Summary Date of Admission: Apr 15, 2020 Date of Discharge: Apr 16, 2020 Follow-Up: 3-5 days Admitting Diagnosis comment: DISCHARGE DX REFUSED TO STAY [facility] CARDIOLOGY CONDITION FAIR PROGNOSIS GUARDED SEE PCP IN 3-5 DAYS Chief Complaint ASSESSMENT AND PLAN: Hyponatremia , volume overload palpitations. polydypsia hypokalemia plan cvc bed fluid restrict 1800 cc/ 24 hrs normal saline 75 an hour stop Home meds, DVT prophylaxis. Full code. urinary spot sodium D/C HOME TODAY BY PATIENT REQUEST, MODERATE RISK OF COMPLICATIONS PT refusing additional tests wants to go home no matter what today, refused echo ama, INSISTS ON D/C TODAY History of Present Illness History of Present Illness CHIEF COMPLAINT: Palpitations., low sodium HISTORY OF PRESENT ILLNESS: The patient is a pleasant 84-year-old female who presented to the ER with palpitations that started last night and these have been intermittent. She has increased her home meds, but that did not seem to help. Then she started drinking 8 glasses of water a day that does not seem to have helped her either. While in the ER, we noted that her sodium level was low. 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 We are going to admit the patient and give her some saline. PAST MEDICAL HISTORY: Hypertension, hyperlipidemia. 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 ALLERGIES: None. FAMILY HISTORY: Diabetes. SOCIAL HISTORY: She does not drink, smoke or take drugs. MEDICATIONS: Reviewed, please refer to the MRAD. REVIEW OF SYSTEMS: GENERAL: No history of weight change, weakness or fevers. SKIN: No bruising, hair changes or rashes. EYES: No blurred, double or loss of vision. NOSE AND THROAT: No history of nosebleeds, hoarseness or sore throat. HEART: She complains of palpitations. No chest pain or shortness of breath on exertion. LUNGS: Denies cough, hemoptysis, wheezing or shortness of breath. GASTROINTESTINAL: Denies changes in appetite, nausea, vomiting, diarrhea or constipation. GENITOURINARY: No history of frequency, urgency, hesitancy or nocturia. NEUROLOGIC: Denies history of numbness, tingling, tremor or weakness. PSYCHIATRIC: No history of panic, anxiety or depression. ENDOCRINE: No history of heat or cold intolerance, polyuria or polydipsia. EXTREMITIES: Denies muscle weakness, joint pain, pain on walking or stiffness. Vitals Vitals Vital Signs Date Time Temp Pulse Resp B/P (MAP) Pulse Ox O2 Delivery O2 Flow Rate FiO2 04/16/20 03:12 98.2 69 18 122/55 (77) 97 Room Air 98.2 Physical Exam Physical Exam PHYSICAL EXAMINATION: VITALS: Within normal limits and are stable. GENERAL: No apparent distress. Alert and oriented. HEENT: Normal cephalic atraumatic, external auditory canals are patent EYES: Extraocular muscles are intact, pupils are equally round and reactive to light and accommodation MUSCULOSKELETAL: Well developed, well nourished, good range of motion ENDOCRINE: No thyromegaly was palpated LYMPHATICS: No cervical chain or axillary nodes were noted HEMATOPOIETIC: No bruising NECK: Supple, no JVD, no thyromegaly was noted. LUNGS: Clear to auscultation in all lung aguilar without rhonchi or wheezing. HEART: RRR, S1, S2 present. Peripheral pulses intact, no obvious murmurs were noted. ABDOMEN: Soft, nontender. Positive bowel sounds no organomegaly, normal bowel sounds. EXTREMITIES: Without any cyanosis, clubbing, or edema. Pedal pulses intact, Homans sign is negative. NEUROLOGIC: Normal speech, normal tone. A & O x3, moves all extremities, no obvious focal deficits. PSYCHIATRIC: Normal affect, normal mood. Stable. SKIN: No ulcerations or rashes, good skin turgor, no jaundice. VASCULAR: Good capillary refill, neurovascular bundle appears to be intact. General: Alert, Oriented X3, Cooperative Heart: Regular rate Abdomen: Normal bowel sounds, Soft, No tenderness Extremities: No clubbing, No cyanosis, Normal pulses Skin: No significant lesion Labs LABS INDICATION: Reason: HEART PALPATATIONS / Spl. Instructions: / History: COMPARISON: October 2017 FINDINGS: 2 view of chest obtained. Cardiac silhouette is similar to prior. Mild disorganization of the pulmonary markings again seen without a definite new region of consolidation. Degenerative changes of the spine. IMPRESSION: * No focal airspace consolidation or edema. Electronically signed by: Jomar Garcia MD (04/15/2020 5:36 PM) [id number] FINAL DIAGNOSIS Problems Medical Problems: (1) Hyponatremia Status: Acute Brief Hospital Course Ms. Barrientos is a 84 old [sex] who presented with [ ] CONDITION AT DISCHARGE: Comment (GUARDED PROGNOSIS) Discharge Medications Current Medications Metoprolol Tartrate (Lopressor Vial) 5 mg 1X ONCE IVP ; Start 04/15/20 at 17:15; Stop 04/15/20 at 17:16; Status DC Acetaminophen (Tylenol) 650 mg 1X ONCE PO Last administered on 04/15/20at 18:51; Start 04/15/20 at 18:15; Stop 04/15/20 at 18:16; Status DC Ketorolac Tromethamine (Toradol 15mg Vial) 15 mg 1X ONCE IVP Last administered on 04/15/20at 18:51; Start 04/15/20 at 18:15; Stop 04/15/20 at 18:16; Status DC Sodium Chloride 1,000 ml @ 75 mls/hr 1X ONCE IV Last administered on 04/15/20at 20:46; Start 04/15/20 at 19:30; Stop 04/16/20 at 08:49; Status DC Sodium Chloride 1,000 ml @ 75 mls/hr [id number] IV ; Start 04/16/20 at 09:00; Stop 04/16/20 at 10:00; Status DC Amlodipine Besylate (Norvasc) 5 mg DAILY PO Last administered on 04/16/20at 08:18; Start 04/16/20 at 09:00; Stop 04/16/20 at 08:28; Status DC Metoprolol Succinate (Toprol Xl) 50 mg DAILY PO Last administered on 04/16/20at 08:18; Start 04/16/20 at 09:00; Stop 04/16/20 at 13:07; Status DC Acetaminophen (Tylenol) 650 mg PRN Q6HRS PRN PO MILD PAIN / TEMP > 100.3'F Last administered on 04/16/20at 00:00; Start 04/15/20 at 23:45 Potassium Chloride (Klor-Con) 20 meq 1X ONCE PO Last administered on 04/16/20at 10:51; Start 04/16/20 at 09:45; Stop 04/16/20 at 09:46; Status DC Potassium Chloride (Klor-Con) 10 meq 1X ONCE PO Last administered on 04/16/20at 10:51; Start 04/16/20 at 09:45; Stop 04/16/20 at 09:46; Status DC Metoprolol Succinate (Toprol Xl) 25 mg DAILY PO ; Start 04/17/20 at 09:00 Amlodipine Besylate (Norvasc) 5 mg DAILY PO ; Start 04/17/20 at 09:00 Active Scripts Active Reported Triamterene-Hctz 75-50 Mg Tab (Triamterene/Hydrochlorothiazid) 1 Each Tablet 1 Tab PO DAILY MDD 1 Toprol Xl (Metoprolol Succinate) 50 Mg Tab.er.24h 1 Tab PO DAILY Vital Signs Vital Signs Date Time Temp Pulse Resp B/P (MAP) Pulse Ox O2 Delivery O2 Flow Rate FiO2 04/16/20 10:00 97.8 71 18 155/69 (97) 98 Room Air 97.8 Labs Laboratory Tests Test 04/15/20 17:40 04/16/20 03:55 White Blood Count 5.3 x10^3/uL (4.0-11.0) 4.6 x10^3/uL (4.0-11.0) Red Blood Count 4.34 x10^6/uL (3.50-5.40) 3.89 x10^6/uL (3.50-5.40) Hemoglobin 12.0 g/dL (12.0-15.5) 10.8 g/dL (12.0-15.5) Hematocrit 35.6 % (36.0-47.0) 31.8 % (36.0-47.0) Mean Corpuscular Volume 82 fL (79-100) 82 fL (79-100) Mean Corpuscular Hemoglobin 28 pg (25-35) 28 pg (25-35) Mean Corpuscular Hemoglobin Concent 34 g/dL (31-37) 34 g/dL (31-37) Red Cell Distribution Width 13.5 % (11.5-14.5) 13.7 % (11.5-14.5) Platelet Count 261 x10^3/uL (140-400) 230 x10^3/uL (140-400) Neutrophils (%) (Auto) 43 % (31-73) 36 % (31-73) Lymphocytes (%) (Auto) 43 % (24-48) 48 % (24-48) Monocytes (%) (Auto) 11 % (0-9) 13 % (0-9) Eosinophils (%) (Auto) 2 % (0-3) 2 % (0-3) Basophils (%) (Auto) 2 % (0-3) 1 % (0-3) Neutrophils # (Auto) 2.3 x10^3/uL (1.8-7.7) 1.7 x10^3/uL (1.8-7.7) Lymphocytes # (Auto) 2.3 x10^3/uL (1.0-4.8) 2.2 x10^3/uL (1.0-4.8) Monocytes # (Auto) 0.6 x10^3/uL (0.0-1.1) 0.6 x10^3/uL (0.0-1.1) Eosinophils # (Auto) 0.1 x10^3/uL (0.0-0.7) 0.1 x10^3/uL (0.0-0.7) Basophils # (Auto) 0.1 x10^3/uL (0.0-0.2) 0.0 x10^3/uL (0.0-0.2) Sodium Level 125 mmol/L (136-145) 127 mmol/L (136-145) Potassium Level 4.0 mmol/L (3.5-5.1) 3.4 mmol/L (3.5-5.1) Chloride Level 91 mmol/L (98-107) 93 mmol/L (98-107) Carbon Dioxide Level 25 mmol/L (21-32) 26 mmol/L (21-32) Anion Gap 9 (6-14) 8 (6-14) Blood Urea Nitrogen 12 mg/dL (7-20) 13 mg/dL (7-20) Creatinine 1.1 mg/dL (0.6-1.0) 1.2 mg/dL (0.6-1.0) Estimated GFR (Cockcroft-Gault) 57.4 51.9 BUN/Creatinine Ratio 11 (6-20) 11 (6-20) Glucose Level 117 mg/dL (70-99) 97 mg/dL (70-99) Calcium Level 8.8 mg/dL (8.5-10.1) 8.5 mg/dL (8.5-10.1) Magnesium Level 1.9 mg/dL (1.8-2.4) Total Bilirubin 0.4 mg/dL (0.2-1.0) 0.4 mg/dL (0.2-1.0) Aspartate Amino Transf (AST/SGOT) 22 U/L (15-37) 15 U/L (15-37) Alanine Aminotransferase (ALT/SGPT) 26 U/L (14-59) 24 U/L (14-59) Alkaline Phosphatase 93 U/L (46-116) 80 U/L (46-116) Troponin I Quantitative < 0.017 ng/mL (0.000-0.055) Total Protein 8.0 g/dL (6.4-8.2) 6.9 g/dL (6.4-8.2) Albumin 3.8 g/dL (3.4-5.0) 3.3 g/dL (3.4-5.0) Albumin/Globulin Ratio 0.9 (1.0-1.7) 0.9 (1.0-1.7) Triglycerides Level 152 mg/dL (0-150) Cholesterol Level 261 mg/dL (0-200) LDL Cholesterol, Calculated 181 mg/dL (0-100) VLDL Cholesterol, Calculated 30 mg/dL (0-40) Non-HDL Cholesterol Calculated 211 mg/dL (0-129) HDL Cholesterol 50 mg/dL (40-60) Cholesterol/HDL Ratio 5.2 Thyroid Stimulating Hormone (TSH) 3.183 uIU/mL (0.358-3.74) Laboratory Tests Test 04/15/20 17:40 04/16/20 03:55 White Blood Count 5.3 x10^3/uL (4.0-11.0) 4.6 x10^3/uL (4.0-11.0) Red Blood Count 4.34 x10^6/uL (3.50-5.40) 3.89 x10^6/uL (3.50-5.40) Hemoglobin 12.0 g/dL (12.0-15.5) 10.8 g/dL (12.0-15.5) Hematocrit 35.6 % (36.0-47.0) 31.8 % (36.0-47.0) Mean Corpuscular Volume 82 fL (79-100) 82 fL (79-100) Mean Corpuscular Hemoglobin 28 pg (25-35) 28 pg (25-35) Mean Corpuscular Hemoglobin Concent 34 g/dL (31-37) 34 g/dL (31-37) Red Cell Distribution Width 13.5 % (11.5-14.5) 13.7 % (11.5-14.5) Platelet Count 261 x10^3/uL (140-400) 230 x10^3/uL (140-400) Neutrophils (%) (Auto) 43 % (31-73) 36 % (31-73) Lymphocytes (%) (Auto) 43 % (24-48) 48 % (24-48) Monocytes (%) (Auto) 11 % (0-9) 13 % (0-9) Eosinophils (%) (Auto) 2 % (0-3) 2 % (0-3) Basophils (%) (Auto) 2 % (0-3) 1 % (0-3) Neutrophils # (Auto) 2.3 x10^3/uL (1.8-7.7) 1.7 x10^3/uL (1.8-7.7) Lymphocytes # (Auto) 2.3 x10^3/uL (1.0-4.8) 2.2 x10^3/uL (1.0-4.8) Monocytes # (Auto) 0.6 x10^3/uL (0.0-1.1) 0.6 x10^3/uL (0.0-1.1) Eosinophils # (Auto) 0.1 x10^3/uL (0.0-0.7) 0.1 x10^3/uL (0.0-0.7) Basophils # (Auto) 0.1 x10^3/uL (0.0-0.2) 0.0 x10^3/uL (0.0-0.2) Sodium Level 125 mmol/L (136-145) 127 mmol/L (136-145) Potassium Level 4.0 mmol/L (3.5-5.1) 3.4 mmol/L (3.5-5.1) Chloride Level 91 mmol/L (98-107) 93 mmol/L (98-107) Carbon Dioxide Level 25 mmol/L (21-32) 26 mmol/L (21-32) Anion Gap 9 (6-14) 8 (6-14) Blood Urea Nitrogen 12 mg/dL (7-20) 13 mg/dL (7-20) Creatinine 1.1 mg/dL (0.6-1.0) 1.2 mg/dL (0.6-1.0) Estimated GFR (Cockcroft-Gault) 57.4 51.9 BUN/Creatinine Ratio 11 (6-20) 11 (6-20) Glucose Level 117 mg/dL (70-99) 97 mg/dL (70-99) Calcium Level 8.8 mg/dL (8.5-10.1) 8.5 mg/dL (8.5-10.1) Magnesium Level 1.9 mg/dL (1.8-2.4) Total Bilirubin 0.4 mg/dL (0.2-1.0) 0.4 mg/dL (0.2-1.0) Aspartate Amino Transf (AST/SGOT) 22 U/L (15-37) 15 U/L (15-37) Alanine Aminotransferase (ALT/SGPT) 26 U/L (14-59) 24 U/L (14-59) Alkaline Phosphatase 93 U/L (46-116) 80 U/L (46-116) Troponin I Quantitative < 0.017 ng/mL (0.000-0.055) Total Protein 8.0 g/dL (6.4-8.2) 6.9 g/dL (6.4-8.2) Albumin 3.8 g/dL (3.4-5.0) 3.3 g/dL (3.4-5.0) Albumin/Globulin Ratio 0.9 (1.0-1.7) 0.9 (1.0-1.7) Triglycerides Level 152 mg/dL (0-150) Cholesterol Level 261 mg/dL (0-200) LDL Cholesterol, Calculated 181 mg/dL (0-100) VLDL Cholesterol, Calculated 30 mg/dL (0-40) Non-HDL Cholesterol Calculated 211 mg/dL (0-129) HDL Cholesterol 50 mg/dL (40-60) Cholesterol/HDL Ratio 5.2 Thyroid Stimulating Hormone (TSH) 3.183 uIU/mL (0.358-3.74) Allergies Allergies Coded Allergies Type Severity Reaction Last Updated Verified No Known Drug Allergies 04/10/16 No Disposition/Orders: D/C to Home Justicifation of Admission Dx: Justifications for Admission: Justification of Admission Dx: No JUNAID ALFORD MD Apr 16, 2020 14:34
[2020-04-16] MEDS ORDERED: METO-239 PO (14:49)
[2020-04-16] MEDS ORDERED: AMLO5TAB4 PO (14:50)
[2020-04-16] MEDS ORDERED: ATOR20TA58 PO (14:55)
[2020-04-16] MEDS ORDERED: ASPI-630 PO (14:56)
--- NOTE | 2020-04-16 15:15 | NUR ---
DISCHARGED PATIENT TO HOME. PIV AND HEART MONITOR REMOVED. ESCORTED PATIENT OFF UNIT PER WHEELCHAIR INTO A PRIVATE VEHICLE.
--- NOTE | 2020-04-16 15:36 | DISCH ---
DISCHARGE INSTRUCTIONS Condition on Discharge Condition on Discharge: Guarded Activity After Discharge Activity Instructions for Disc: No restrictions, Avoid exertion Lifting Instructions after Dis: No heavy lifting, No pulling or pushing Driving Instructions after Dis: Do not drive Weight Bearing Status after Di: No restrictions, As tolerated Diet after Discharge Diet after Discharge: Cardiac Checks after Discharge Checks after discharge: Check blood press - daily Contacting the [facility] after DC Call your doctor for: If your condition worsens Follow-Up Follow Up With: Dr. Hernandez on 05/23/2020 at 2:15 PM Treatment/Equipment after DC Adaptive Equipment Issued: JUNAID Roe MD Apr 16, 2020 15:36
[2020-04-16] MEDS ORDERED: ATORVASTATIN CALCIUM 20 MG TABLET PO SCH (21:00)
[2020-04-17] MEDS ORDERED: amLODIPine BESYLATE 5 MG TABLET PO SCH (09:00)
[2020-04-17] MEDS ORDERED: METOPROLOL SUCC 24HR ER 25 MG TAB.ER.24H. PO SCH (09:00)
== END 2020-04-16 15:12 | disposition home or self-care (01) | DRG 641 ==
LOC: ER 16:39 → ED HOLD 19:00 → 2 NORTH 21:09
PROVIDERS: ADMIT Internal Medicine; ATTEND Internal Medicine
DX: E87.1 Hypo-osmolality and hyponatremia (principal); I45.2 Bifascicular block; E66.9 Obesity, unspecified; Z68.35 Body mass index [BMI] 35.0-35.9, adult; E78.00 Pure hypercholesterolemia, unspecified; I10 Essential (primary) hypertension; Z92.21 Personal history of antineoplastic chemotherapy; Z83.3 Family history of diabetes mellitus; E87.6 Hypokalemia; E78.5 Hyperlipidemia, unspecified; E87.70 Fluid overload, unspecified; I16.0 Hypertensive urgency; R63.1 Polydipsia; M19.90 Unspecified osteoarthritis, unspecified site; I45.81 Long QT syndrome
CPT/HCPCS: 36415; 71046; 80053; 80061; 83735; 84300; 84443; 84484; 85025; 93005; 96361; 96374; 99285; J1885; J7030; G0378